=== PATIENT | male | born 1945 | race Hispanic/Latino ===

== ENCOUNTER 2017-06-05 11:01 | Inpatient (IN) | payer MEDICARE ==
[~2017-06-05] VITALS: Ht 170.2 cm; Wt 78.0 kg
[~2017-06-05 11:01] MED LIST: ASPIR 8181 MG; BRIMONIDINE TAR10 ML OU; CARVEDILOL12.5 MG PO; COLCRYS0.6 MG PO; DORZOLAMIDE-TIM10 ML OU; FERROUS SULFAT325 MG; GABAPENTIN300 MG PO; GLIMEPIRIDE2 MG PO; MONTELUKAST SOD10 MG PO; NAMENDA10 MG PO; NORVASC10 MG PO; PLAVIX75 MG PO; PREDNISONE5 G1 PO; TOVIAZ4 MG; TRICOR48 MG PO; ZESTRIL20 MG PO; ZOCOR10 MG
--- NOTE | 2017-06-05 12:03 | Diagnostic Imaging Report ---
PROCEDURE:CHEST SINGLE (NOT PORTABLE) TECHNIQUE:Portable AP chest INDICATION:Fall COMPARISON:[facility], DX, CHEST SINGLE (PORTABLE), 03/02/2015, 11:40. FINDINGS: See conclusion. CONCLUSION: 1. Right midline with tip in the region of the axillary vein. 2. Chronic left pleural thickening with adjacent fibrosis/scar. Clear right lung. 3. Stable cardiomediastinal silhouette, with normal heart size and pulmonary vasculature. 4. Intact skeleton. Dictated by: Yrn Salvador M.D. on 06/05/2017 at 12:12 Electronically approved by: Yrn Salvador M.D. on 06/05/2017 at 12:12
--- NOTE | 2017-06-05 12:04 | Diagnostic Imaging Report ---
PROCEDURE:HIP RIGHT 2-3 VW (+/- PELVIS) TECHNIQUE:PA pelvis with AP and frog-leg lateral views right hip INDICATION:Fall COMPARISON:None. FINDINGS: See conclusion. CONCLUSION: 1. Displaced intertrochanteric fracture of the right femur. 2. Right femoral head in anatomic alignment. Regional skeleton otherwise intact. 3. Regional atherosclerosis. Dictated by: Yrn Salvador M.D. on 06/05/2017 at 12:13 Electronically approved by: Yrn Salvador M.D. on 06/05/2017 at 12:13
[2017-06-05 12:25] LABS: BASOPHILS % 0.4 % (0.0-1.0); EOSINOPHILS # (AUTO) 0.2 (0.0-0.4); EOSINOPHILS % 1.9 % (0.0-6.0); HEMATOCRIT 33.2 % (38.2-49.6); HEMOGLOBIN 10.5 g/dL (14.0-18.0); LYMPHOCYTES # (AUTO) 2.1 (1.0-3.2); LYMPHOCYTES % 24.4 % (18.0-39.1); MEAN CORPUSCULAR HEMOGLOBIN 27.6 pg (28-32); MEAN CORPUSCULAR HGB CONC 31.6 g/dL (31-35); MEAN CORPUSCULAR VOLUME 87.1 fL (81-99); MONOCYTES # (AUTO) 0.6 (0.2-0.8); MONOCYTES % 6.5 % (4.4-11.3); NEUTROPHILS # (AUTO) 5.6 (2.1-6.9); NEUTROPHILS % 66.3 % (38.7-80.0); PLATELET COUNT 291 x10e3/uL (140-360); RED BLOOD COUNT 3.81 x10e6/uL (4.3-5.7); RED CELL DISTRIBUTION WIDTH 15.9 % (11.7-14.4)
[2017-06-05 12:30] LABS: PROTHROMBIN TIME 13.7 seconds (11.9-14.5)
[2017-06-05 12:40] LABS: ALBUMIN 3.1 g/dL (3.5-5.0); ALBUMIN/GLOBULIN RATIO 0.6 (0.8-2.0); ANION GAP 14.4 mmol/L (8-16); CALCIUM 9.4 mg/dL (8.4-10.2); POTASSIUM 4.4 mmol/L (3.5-5.1)
[2017-06-05] MEDS: SODIUM CHLORIDE 0.9% 1000ML 1,000 ML IV SCH ×2 (13:15→23:10)
[2017-06-05] MEDS: ONDANSETRON HCL INJ 2 MG/ML VIAL IV PRN ×2 (14:07→16:51)
[2017-06-05] MEDS: HYDROMORPHONE 2MG/ML INJ IV PRN ×2 (14:08→16:52)
[2017-06-05] MEDS ORDERED: HEPARIN SO5000 UNIT/ SC (16:42)
[2017-06-05] MEDS ORDERED: LASIX40 MG PO (16:42)
[2017-06-05] MEDS ORDERED: AMIODARONE HCL200 MG PO (16:42)
[2017-06-05] MEDS ORDERED: ECOTRIN325 MG PO (16:42)
[2017-06-05] MEDS ORDERED: DUONEB NEB (16:42)
[2017-06-05] MEDS ORDERED: BUDESONIDE0.5 MG/2 M NEB (16:42)
[2017-06-05] MEDS ORDERED: FLORASTOR250 MG PO (16:42)
[2017-06-05] MEDS ORDERED: FAMOTIDINE20 MG PO (16:42)
[2017-06-05] MEDS ORDERED: EFFER-K 20 MEQ20 MEQ PO (17:07)
[2017-06-05] MEDS ORDERED: IMODIUM2 MG PO (17:07)
[2017-06-05] MEDS ORDERED: LOPRESSOR25 MG PO (17:07)
[2017-06-05] MEDS ORDERED: PRAVASTATIN SOD20 MG PO (17:07)
[2017-06-05] MEDS ORDERED: NOVOLOG100 UNIT/1 (17:07)
[2017-06-05] MEDS ORDERED: LANTUS 3ML100 UNITS/ SC (17:07)
[2017-06-05] MEDS ORDERED: MIRALAX17 GM PO (17:07)
[2017-06-05] MEDS ORDERED: ZOSYN 3.373.375 GM/5 IVP (17:18)
[2017-06-05 18:11] VITALS: BP 178/83
[2017-06-05 18:24] VITALS: BP 178/83
[2017-06-05] MEDS ORDERED: HYDRALAZINE HCL 20 MG/ML VIAL IV PRN (18:30)
[2017-06-05] MEDS ORDERED: DEXTROSE 50% SYRINGE 50 ML IV PRN (18:30)
[2017-06-05] MEDS: NIFEDIPINE CR 30 MG TAB PO SCH (18:45)
--- NOTE | 2017-06-05 19:55 | History and Physical ---
CHIEF COMPLAINT: Fall with right femur fracture. HISTORY OF PRESENT ILLNESS: This is a 71-year-old male with multiple comorbidities who is currently at a custodial facility working with physical therapy. He fell down on his right hip and found to have a right intertrochanteric femur fracture. The patient denies having chest pain, palpitations, lightheadedness or dizziness when this occurred. They report this as more of a mechanical fall. The patient had been severely debilitated requiring significant PT and OT, going to custodial facility. The patient was seen and evaluated at bedside on the medical floor, currently doing well with no other issues. Pain is well controlled. Orthopedics has been consulted. reports that he saw a irrigationist designer in the past and needs cardiac clearance prior to any procedure. REVIEW OF SYSTEMS: Pertinent positive: Mechanical fall with right hip femur fracture. Pertinent negative: Denies any chest pain, palpitations, nausea, vomiting, diarrhea, dysuria, hematuria, frequency, urgency, lightheadedness, dizziness, abdominal pain, headache, shortness of breath or any other complaints. The rest of the 14-poin review of systems have been reviewed with the patient and are negative. ALLERGIES: NO KNOWN DRUG ALLERGIES. HOME MEDICATIONS: Amiodarone 400 mg daily, amlodipine 10 mg daily, aspirin 81 mg daily, budesonide 1 mg nebulizer q.12 h., Coreg 6.25 mg p.o. b.i.d., Plavix 75 mg daily, colchicine 0.6 mg p.o. daily, Pepcid 20 mg daily, Tricor 54 mg daily, iron tablets 325 mg daily, Lasix 40 mg p.o. b.i.d., gabapentin 300 mg daily, 2 mg p.o. b.i.d. He takes Lantus 20 units subcu daily, lisinopril 20 mg daily, Namenda 10 mg daily, metoprolol 100 mg p.o. b.i.d., Singular 10 mg daily. MiraLax as needed. PAST MEDICAL HISTORY: Diabetes, hypertension, dementia, hyperlipidemia, chronically debilitated. PAST SURGICAL HISTORY: Unknown. FAMILY HISTORY: Hypertension, diabetes. SOCIAL HISTORY: No drugs, no alcohol, does not smoke. Currently at the custodial facility for rehabilitation. LABORATORY DATA: White count 8.4, hemoglobin 10.5, hematocrit 33 and platelets 291,000. Coagulation was normal. Chemistry: Sodium 143, potassium 4.4, chloride 105, bicarb 28. BUN is 21, creatinine 2. Glucose 91. Calcium ___.4. LFTs were normal. Albumin 3.1. Microbiology: None. IMAGING: Hip x-ray shows right intertrochanteric femur fracture. Chest x-ray just chronic left pleural thickening right midline tip in the region of the axillary vein. Otherwise, no acute findings. PHYSICAL EXAMINATION VITAL SIGNS: Temperature afebrile, pulse 77, respiratory rate 16. His last blood pressure was elevated at 185/85, pulse oximetry 94% on room air. GENERAL: In no acute distress, alert and oriented x3, cooperative on examination. HEENT: Head is normocephalic, atraumatic. Eyes: Pupils equal, round and reactive to light bilaterally. Extraocular movements intact bilaterally. Throat with no evidence of any erythema or exudates in the posterior pharynx. Has poor dentition. NECK: Supple with good range of motion. PULMONARY: Clear to auscultation bilaterally with no wheezing, no rales, no rhonchi. No crackles appreciated. CARDIOVASCULAR: Positive S1 and S2, no murmurs, rubs or gallops appreciated. ABDOMEN: Soft, nondistended, nontender on palpation. Bowel sounds were present. MUSCULOSKELETAL: Strength 5/5 throughout, no evidence of musculoskeletal deficit on exam. SKIN: Intact. Warm to touch. Good capillary refill. EXTREMITIES: No edema. Good range of motion throughout. PSYCHIATRIC: Normal affect and mood. ASSESSMENT AND PLAN 1. Right intertrochanteric femur fracture -- pain control, orthopedics consulted. Needs cardiac clearance, according to the . Cardiology consulted, EKG and 2D echo. 2. Chronic kidney disease stage 3 -- monitor closely. 3. Hypertension -- blood pressure elevated. Add p.r.n. hydralazine. Add nifedipine XL 60 mg daily. 4. Type 2 diabetes, insulin sliding scale. Accu-Cheks. 5. Prophylaxis: Hold SCDs, hold anticoagulation due to surgery. 6. Fluid, electrolytes, nutrients: Low-dose IV fluids. DISPOSITION: Inpatient, orthopedics and cardiology consulted. Will likely need PT and OT after and will need custodial facility placement. Job#: [id number]
[2017-06-05 20:00] VITALS: BP 180/85
[2017-06-05] MEDS ORDERED: NON-FORMULARY MEDICATION (Pravastatin Sodium 20 MG) PO SCH (21:00)
[2017-06-05] MEDS: PRAVASTATIN 20 MG TAB PO SCH (21:24)
[2017-06-05] MEDS: METOPROLOL TARTRATE 25 MG TAB PO SCH (21:25)
[2017-06-06] VITALS (7 sets, daily range): BP systolic 114–143; BP diastolic 56–67
[2017-06-06] MEDS: SODIUM CHLORIDE 0.9% 1000ML 1,000 ML IV SCH ×2 (04:56→19:10)
--- NOTE | 2017-06-06 06:35 | Diagnostic Imaging Report ---
CHEST SINGLE (PORTABLE), 06/06/2017 6:00 AM Technique: CHEST SINGLE (PORTABLE) Comparison: 06/05/2017 Clinical history: PICC line confirmation Findings: Stable cardiomediastinal silhouette. Persistent low lung volumes with bibasilar vascular crowding/atelectasis. Unchanged focal left lateral pleural thickening or fluid. Impression: 1. Lines/Tubes: Right PICC terminates over the right axilla. 2. Stable chest. Signed by: Dr Rhiannon Franks MD on 06/06/2017 6:32 AM
--- NOTE | 2017-06-06 08:46 | Consultation ---
DATE OF CONSULTATION: June 06, 2017 CHIEF COMPLAINT: Right hip pain. HISTORY OF PRESENT ILLNESS: The patient is medically frail 71-year-old gentleman who is a custodial resident. He fell from a standing height a couple days ago. He has been unable to ambulate for 3 months. He was noted to have increased pain and deformity of his right lower extremity, and was ultimately brought into the hospital. He was diagnosed with a hip fracture and orthopedic consultation was requested. PAST MEDICAL HISTORY: Extensive medical history, including advanced dementia. He has been in the hospital for pneumonia for the past 3 months. He has not been ambulatory. Please see admission H and P for further details. PHYSICAL EXAMINATION GENERAL: He appears cachectic. EXTREMITIES: His upper extremities are contracted. He is in a right lower extremity Benjy wrap. He expresses signs of discomfort with any attempted passive range of motion. His knees are slightly contracture. Neurovascular exam is grossly normal. LABORATORY STUDIES: X-rays show a severe intertrochanteric fracture of the right hip. IMPRESSION: Right hip fracture. PLAN: The findings and options were discussed with the patient's daughter. The patient cannot provide any history and is not communicative. There would be little to no benefit of any type of aggressive surgical intervention to stabilize the fracture. He is currently nonambulatory, and is showing signs of end-stage medical comorbidities. I have recommended supportive comfort care. The patient's is in agreement. I will follow up as needed. Thank you for the consultation. Job#: [id number] STEPHANIE
[2017-06-06] MEDS ORDERED: METOPROLOL TARTRATE 25 MG TAB PO SCH (09:00)
[2017-06-06] MEDS: [UNRECOGNIZED DRUG - OTHER] PO SCH ×2 (09:00→16:27)
[2017-06-06] MEDS ORDERED: [UNRECOGNIZED DRUG - OTHER] PO SCH (09:00)
[2017-06-06] MEDS: ASPIRIN 325 MG TAB EC PO SCH (09:29)
[2017-06-06] MEDS: AMIODARONE HCL 200 MG TAB PO SCH (09:29)
[2017-06-06] MEDS: FUROSEMIDE 40 MG TAB PO SCH ×2 (09:29→17:01)
[2017-06-06] MEDS: METOPROLOL TARTRATE 25 MG TAB PO SCH ×2 (09:30→17:01)
[2017-06-06] MEDS: INSULIN DETEMIR 100 UNIT/ML PEN SQ SCH (09:30)
[2017-06-06] MEDS: NIFEDIPINE CR 30 MG TAB PO SCH (09:30)
[2017-06-06] MEDS: PRAVASTATIN 20 MG TAB PO SCH (20:42)
[2017-06-07] VITALS (8 sets, daily range): BP systolic 107–137; BP diastolic 53–85
[2017-06-07] MEDS: SODIUM CHLORIDE 0.9% 1000ML 1,000 ML IV SCH ×3 (00:26→21:19)
[2017-06-07] MEDS: ACETAMINOPHEN/CODEINE 300MG - 30MG TAB PO PRN ×3 (00:53→23:53)
[2017-06-07] MEDS: METOPROLOL TARTRATE 25 MG TAB PO SCH ×2 (08:43→16:48)
[2017-06-07] MEDS: NIFEDIPINE CR 30 MG TAB PO SCH (08:43)
[2017-06-07] MEDS: AMIODARONE HCL 200 MG TAB PO SCH (08:43)
[2017-06-07] MEDS: FUROSEMIDE 40 MG TAB PO SCH ×2 (08:43→16:52)
[2017-06-07] MEDS: [UNRECOGNIZED DRUG - OTHER] PO SCH ×2 (08:43→16:48)
[2017-06-07] MEDS: INSULIN DETEMIR 100 UNIT/ML PEN SQ SCH (08:43)
[2017-06-07] MEDS: ASPIRIN 325 MG TAB EC PO SCH (08:43)
[2017-06-07] MEDS: PRAVASTATIN 20 MG TAB PO SCH (20:14)
[2017-06-08] VITALS (8 sets, daily range): BP systolic 102–123; BP diastolic 45–59
[2017-06-08] MEDS: AMIODARONE HCL 200 MG TAB PO SCH (08:15)
[2017-06-08] MEDS: ASPIRIN 325 MG TAB EC PO SCH (08:15)
[2017-06-08] MEDS: FUROSEMIDE 40 MG TAB PO SCH ×2 (08:16→16:25)
[2017-06-08] MEDS: [UNRECOGNIZED DRUG - OTHER] PO SCH ×2 (08:16→16:25)
[2017-06-08] MEDS: METOPROLOL TARTRATE 25 MG TAB PO SCH ×2 (08:16→16:26)
[2017-06-08] MEDS: NIFEDIPINE CR 30 MG TAB PO SCH (08:17)
[2017-06-08] MEDS: INSULIN DETEMIR 100 UNIT/ML PEN SQ SCH (08:18)
[2017-06-08] MEDS: ACETAMINOPHEN/CODEINE 300MG - 30MG TAB PO PRN ×2 (08:32→13:58)
[2017-06-08] MEDS: SODIUM CHLORIDE 0.9% 1000ML 1,000 ML IV SCH (13:24)
[2017-06-08] MEDS: ENOXAPARIN 30 MG/0.3 ML SYR SC SCH (16:27)
[2017-06-08] MEDS: PRAVASTATIN 20 MG TAB PO SCH (21:22)
[2017-06-09] VITALS: BP 114/56
[2017-06-09 04:00] VITALS: BP 110/55
[2017-06-09] MEDS: ACETAMINOPHEN/CODEINE 300MG - 30MG TAB PO PRN ×4 (04:00→20:49)
[2017-06-09] MEDS: ACETAMINOPHEN 325 MG TAB PO PRN (04:30)
[2017-06-09 06:57] LABS: BASOPHILS % 0.3 % (0.0-1.0); EOSINOPHILS # (AUTO) 0.2 (0.0-0.4); EOSINOPHILS % 1.9 % (0.0-6.0); HEMATOCRIT 28.7 % (38.2-49.6); HEMOGLOBIN 9.2 g/dL (14.0-18.0); LYMPHOCYTES # (AUTO) 2.5 (1.0-3.2); LYMPHOCYTES % 20.1 % (18.0-39.1); MEAN CORPUSCULAR HEMOGLOBIN 27.7 pg (28-32); MEAN CORPUSCULAR HGB CONC 32.1 g/dL (31-35); MEAN CORPUSCULAR VOLUME 86.4 fL (81-99); MONOCYTES # (AUTO) 1.2 (0.2-0.8); MONOCYTES % 9.8 % (4.4-11.3); NEUTROPHILS # (AUTO) 8.2 (2.1-6.9); NEUTROPHILS % 67.4 % (38.7-80.0); PLATELET COUNT 322 x10e3/uL (140-360); RED BLOOD COUNT 3.32 x10e6/uL (4.3-5.7); RED CELL DISTRIBUTION WIDTH 15.8 % (11.7-14.4)
[2017-06-09 07:33] LABS: ANION GAP 18.3 mmol/L (8-16); CALCIUM 9.3 mg/dL (8.4-10.2); CREATININE, SERUM 1.68 mg/dL (0.72-1.25); POTASSIUM 4.3 mmol/L (3.5-5.1)
[2017-06-09 08:35] VITALS: BP 121/58
[2017-06-09] MEDS: [UNRECOGNIZED DRUG - OTHER] PO SCH ×2 (09:00→16:06)
[2017-06-09] MEDS: NIFEDIPINE CR 30 MG TAB PO SCH (09:33)
[2017-06-09] MEDS: FUROSEMIDE 40 MG TAB PO SCH ×2 (09:34→16:06)
[2017-06-09] MEDS: ASPIRIN 325 MG TAB EC PO SCH (09:34)
[2017-06-09] MEDS: METOPROLOL TARTRATE 25 MG TAB PO SCH ×2 (09:34→16:09)
[2017-06-09] MEDS: SODIUM CHLORIDE 0.9% 1000ML 1,000 ML IV SCH ×2 (09:34→21:13)
[2017-06-09] MEDS: AMIODARONE HCL 200 MG TAB PO SCH (09:34)
[2017-06-09] MEDS: INSULIN DETEMIR 100 UNIT/ML PEN SQ SCH (09:35)
[2017-06-09 12:06] LABS: BILIRUBIN,URINE NEGATIVE (NEGATIVE); KETONES,URINE NEGATIVE (NEGATIVE); LEUKOCYTE ESTERASE ,URINE NEGATIVE (NEGATIVE); NITRITE,URINE NEGATIVE (NEGATIVE); PROTEIN,URINE DIPSTICK NEGATIVE (NEGATIVE); URINE UROBILINOGEN 0.2 mg/dL (0.2 - 1)
[2017-06-09 12:21] LABS: CLARITY,URINE HAZY (CLEAR); COLOR,URINE YELLOW (YELLOW); EPITHELIAL CELLS,URINE RARE /LPF; RBC,URINE 0-5 /HPF (0-5)
[2017-06-09 12:22] LABS: AMORPHOUS SEDIMENT,URINE MODERATE (FEW)
[2017-06-09] MEDS: ENOXAPARIN 30 MG/0.3 ML SYR SC SCH (16:09)
[2017-06-09 17:00] VITALS: BP 129/60
[2017-06-09 20:00] VITALS: BP 125/59
[2017-06-09] MEDS: PRAVASTATIN 20 MG TAB PO SCH (20:49)
[2017-06-10] VITALS (8 sets, daily range): BP systolic 108–142; BP diastolic 53–85
[2017-06-10] MEDS: ACETAMINOPHEN/CODEINE 300MG - 30MG TAB PO PRN ×4 (04:26→22:51)
[2017-06-10 07:56] LABS: BASOPHILS # (AUTO) 0.1 (0.0-0.1); BASOPHILS % 0.4 % (0.0-1.0); EOSINOPHILS % 0.3 % (0.0-6.0); HEMOGLOBIN 9.2 g/dL (14.0-18.0); LYMPHOCYTES # (AUTO) 1.3 (1.0-3.2); LYMPHOCYTES % 11.2 % (18.0-39.1); MEAN CORPUSCULAR HEMOGLOBIN 27.4 pg (28-32); MEAN CORPUSCULAR HGB CONC 31.7 g/dL (31-35); MEAN CORPUSCULAR VOLUME 86.3 fL (81-99); MONOCYTES % 8.8 % (4.4-11.3); NEUTROPHILS # (AUTO) 9.2 (2.1-6.9); PLATELET COUNT 375 x10e3/uL (140-360); RED BLOOD COUNT 3.36 x10e6/uL (4.3-5.7); RED CELL DISTRIBUTION WIDTH 15.7 % (11.7-14.4)
[2017-06-10 08:05] LABS: ANION GAP 18.9 mmol/L (8-16); CALCIUM 8.9 mg/dL (8.4-10.2); CREATININE, SERUM 1.79 mg/dL (0.72-1.25); POTASSIUM 4.9 mmol/L (3.5-5.1)
[2017-06-10] MEDS: [UNRECOGNIZED DRUG - OTHER] PO SCH ×2 (09:00→16:51)
[2017-06-10] MEDS: FUROSEMIDE 40 MG TAB PO SCH ×2 (09:01→16:58)
[2017-06-10] MEDS: ASPIRIN 325 MG TAB EC PO SCH (09:01)
[2017-06-10] MEDS: METOPROLOL TARTRATE 25 MG TAB PO SCH ×2 (09:01→16:51)
[2017-06-10] MEDS: AMIODARONE HCL 200 MG TAB PO SCH (09:01)
[2017-06-10] MEDS: NIFEDIPINE CR 30 MG TAB PO SCH (09:01)
[2017-06-10] MEDS: INSULIN DETEMIR 100 UNIT/ML PEN SQ SCH (09:01)
[2017-06-10] MEDS: SODIUM CHLORIDE 0.9% 1000ML 1,000 ML IV SCH (10:00)
[2017-06-10] MEDS ORDERED: FUROSEMIDE INJ 10 MG/ML 4 ML VIAL IV ONE ×2 (11:15→20:00)
--- NOTE | 2017-06-10 11:28 | Diagnostic Imaging Report ---
PROCEDURE: A single AP view of the chest. COMPARISON: Chest x-ray 06/06/2017. CT chest 03/02/2015. INDICATIONS: SOB FINDINGS: Lines/tubes: Right PICC line with tip in the axilla. Lungs: The lungs are hypoinflated. Unchanged perihilar interstitial opacity. Slight increase in bibasilar atelectasis and/or consolidation. Spiculated consolidation in the left lateral midlung is unchanged compared to 2015. Pleura: Moderate left pleural effusion/pleural thickening centered at the left midlung is again seen. Heart and mediastinum: The heart and the mediastinum are unremarkable. Bones: No acute bony abnormality. IMPRESSION: Decreased lung volumes with perihilar atelectasis. Slight interval development of central pulmonary venous congestion/early interstitial edema. Dictated by: Dexter Fournier M.D. on 06/10/2017 at 11:36 Electronically approved by: Dexter Fournier M.D. on 06/10/2017 at 11:36
[2017-06-10] MEDS: ENOXAPARIN 30 MG/0.3 ML SYR SC SCH (16:58)
[2017-06-10] MEDS: PRAVASTATIN 20 MG TAB PO SCH (20:39)
[2017-06-11] VITALS (177 sets, daily range): BP systolic 65–162; BP diastolic 28–109
[2017-06-11] MEDS ORDERED: FUROSEMIDE INJ 10 MG/ML 4 ML VIAL ONE (04:27)
[2017-06-11] MEDS ORDERED: ENOXAPARIN INJ 80 MG/0.8 ML SYR SC SCH (04:30)
[2017-06-11] MEDS ORDERED: FUROSEMIDE INJ 10 MG/ML 4 ML VIAL IV ONE (04:30)
[2017-06-11] MEDS ORDERED: SODIUM CHLORIDE 0.9% 1000ML 1,000 ML ONE ×2 (04:59→07:17)
[2017-06-11] MEDS ORDERED: VANCOMYCIN 1GM/NS 250 ML 250 ML IV ONE (05:00)
[2017-06-11] MEDS ORDERED: PIPER-TAZ 3.375 GM 50 ML IV ONE (05:00)
[2017-06-11] MEDS ORDERED: PIPER-TAZ 3.375 GM 50 ML ONE (05:03)
[2017-06-11] MEDS ORDERED: VANCOMYCIN 1GM/NS 250 ML 250 ML ONE (05:03)
[2017-06-11 05:46] LABS: BASOPHILS % 0.3 % (0.0-1.0); EOSINOPHILS # (AUTO) 0.1 (0.0-0.4); EOSINOPHILS % 1.3 % (0.0-6.0); HEMATOCRIT 24.4 % (38.2-49.6); LYMPHOCYTES # (AUTO) 2.6 (1.0-3.2); LYMPHOCYTES % 28.5 % (18.0-39.1); MEAN CORPUSCULAR HEMOGLOBIN 27.8 pg (28-32); MEAN CORPUSCULAR HGB CONC 29.9 g/dL (31-35); MEAN CORPUSCULAR VOLUME 92.8 fL (81-99); MONOCYTES # (AUTO) 0.8 (0.2-0.8); MONOCYTES % 8.1 % (4.4-11.3); NEUTROPHILS # (AUTO) 5.4 (2.1-6.9); NEUTROPHILS % 58.9 % (38.7-80.0); PLATELET COUNT 495 x10e3/uL (140-360); RED BLOOD COUNT 2.63 x10e6/uL (4.3-5.7); RED CELL DISTRIBUTION WIDTH 15.7 % (11.7-14.4)
[2017-06-11 05:49] LABS: HEMOGLOBIN 7.3 g/dL (14.0-18.0)
[2017-06-11 05:54] LABS: BILIRUBIN,URINE NEGATIVE (NEGATIVE); CLARITY,URINE CLEAR (CLEAR); COLOR,URINE YELLOW (YELLOW); KETONES,URINE NEGATIVE (NEGATIVE); LEUKOCYTE ESTERASE ,URINE NEGATIVE (NEGATIVE); NITRITE,URINE NEGATIVE (NEGATIVE); PROTEIN,URINE DIPSTICK NEGATIVE (NEGATIVE); URINE UROBILINOGEN 0.2 mg/dL (0.2 - 1)
[2017-06-11 05:57] LABS: ANION GAP 27.2 mmol/L (8-16); CALCIUM 7.9 mg/dL (8.4-10.2); CREATININE, SERUM 2.56 mg/dL (0.72-1.25)
[2017-06-11 06:07] LABS: BACTERIA,URINE RARE /HPF; EPITHELIAL CELLS,URINE RARE /LPF; RBC,URINE 0-5 /HPF (0-5); TRANSITIONAL EPI CELLS,URINE RARE; WBC,URINE (MAN) 0-5 /HPF (0-5)
[2017-06-11] MEDS ORDERED: SODIUM CHLORIDE 0.9% 1000ML 1,000 ML IV SCH (06:15)
[2017-06-11 06:17] LABS: POTASSIUM 6.2 mmol/L (3.5-5.1)
[2017-06-11 06:18] LABS: ALBUMIN 1.7 g/dL (3.5-5.0); BILIRUBIN,DIRECT 0.3 mg/dL (0.0-5.0); MAGNESIUM 2.2 MG/DL (1.3-2.1); PHOSPHORUS 6.9 MG/DL (2.3-4.7)
[2017-06-11 06:20] LABS: INR 1.37; PROTHROMBIN TIME 17.6 seconds (11.9-14.5)
[2017-06-11] MEDS: PANTOPRAZOLE 40 MG 10ML VIAL IV SCH ×2 (06:20→09:39)
[2017-06-11 06:21] LABS: PARTIAL THROMBOPLASTIN TIME 38.1 seconds (23.8-35.5)
[2017-06-11] MEDS ORDERED: SODIUM CHLORIDE 0.9% 250ML 250 ML ONE ×2 (06:28→17:19)
--- NOTE | 2017-06-11 06:28 | Diagnostic Imaging Report ---
EXAMINATION: CHEST SINGLE (PORTABLE) INDICATION: Respiratory distress COMPARISON: 06/10/2017 FINDINGS: TUBES and LINES: Interval placement of endotracheal and nasogastric tubes. Right upper extremity PICC line is not visualized. LUNGS: Lungs are not well inflated. Improvement in left lung base airspace disease with air bronchogram . PLEURA: Small left pleural effusion. HEART AND MEDIASTINUM: The cardiomediastinal silhouette is unremarkable. BONES AND SOFT TISSUES: No acute osseous lesion. Soft tissues are unremarkable. UPPER ABDOMEN: No free air under the diaphragm. IMPRESSION: Mild improvement in airspace disease in keeping with left-sided pneumonia and a small left pleural effusion Signed by: Dr. Jonas Avery M.D. on 06/11/2017 6:25 AM
[2017-06-11] MEDS: LEVOFLOXACIN 500MG/D5W 100ML 100 ML IV SCH (06:29)
[2017-06-11] MEDS ORDERED: VASOPRESSIN 100 UNIT in DEXTROSE 5% 100ML 95 ML IV SCH ×2 (07:15→07:30)
[2017-06-11] MEDS: FENTANYL CITRATE INJ 2,000 MCG in SODIUM CHLORIDE 0.9% 250ML 210 ML IV PRN ×2 (07:21→22:51)
[2017-06-11] MEDS ORDERED: INSULIN REGULAR, HUMAN 100 UNIT/1 ML 3ML VIAL IV ONE (07:45)
[2017-06-11] MEDS ORDERED: DEXTROSE 50% SYRINGE 50 ML IV STA (07:45)
[2017-06-11] MEDS ORDERED: CALCIUM GLUCONATE 10% INJ 9.3 MEQ in SODIUM CHLORIDE 0.9% 100 ML 100 ML IV ONE (07:45)
[2017-06-11] MEDS ORDERED: DEXTROSE 5% 1000ML 1,000 ML IV SCH (07:45)
[2017-06-11] MEDS ORDERED: SODIUM BICARBONATE 8.4% 50 ML VIAL IV STA ×2 (07:45→07:57)
[2017-06-11] MEDS ORDERED: DIPHENHYDRAMINE HCL INJ 50 MG/ML VIAL IV ONE (08:15)
[2017-06-11] MEDS ORDERED: SODIUM CHLORIDE 0.9% 250ML 250 ML IV ONE (08:15)
[2017-06-11] MEDS ORDERED: DEXTROSE 50% SYRINGE 50 ML IV PRN (08:15)
[2017-06-11] MEDS ORDERED: NOREPINEPHRINE BITARTRATE/ NS 250 ML IV PRN (08:15)
[2017-06-11] MEDS ORDERED: FAMOTIDINE 20 MG/2 ML VIAL IV ONE (08:15)
[2017-06-11] MEDS ORDERED: DEXAMETHASONE SOD PHOS 10 MG/1 ML VIAL IV ONE (08:15)
[2017-06-11] MEDS: [UNRECOGNIZED DRUG - OTHER] PO SCH ×2 (08:27→14:47)
--- NOTE | 2017-06-11 08:53 | Consultation ---
DATE OF CONSULTATION: PULMONARY CRITICAL CARE CONSULTATION Admitted through the emergency room on June 05, 2017, with a history of fall and hip fracture in the [facility]. He had a intertrochanteric fracture. The patient has been unable to walk prior to the events. Was felt that there would be no benefit from surgical repair. Patient has a history of hypertension, history of stroke 4 years ago with right paracentesis, history of diabetes for many years, history of smoking for over 50 years, history of coronary artery disease. Worked as an electrician maintenance and other jobs. He was in respiratory distress early this morning and was felt to have aspirated, coffee-ground emesis. According to the family, he has had several pneumonias in the last month, as well as GI bleed, which was evaluated approximately 2 months ago without finding the source according to the family. He has a history of coronary disease and hypertension. MEDICATIONS: Have included amiodarone, Norvasc, aspirin, budesonide, Coreg, Plavix, colchicine, iron, Neurontin, Lantus insulin, lisinopril, Namenda, Lopressor. PHYSICAL EXAMINATION GENERAL: A tall white male intubated. Good smile. Respirations despite mechanical ventilator support. VITALS: Temperature 98.7, pulse 86, blood pressure 95/75, on vasopressin. HEENT: Temporal wasting. LUNGS: Rhonchi right greater than left. HEART: Regular rhythm. ABDOMEN: Nontender. EXTREMITIES: Not edematous. IMPRESSION 1. Aspiration pneumonia. 2. Shock. 3. Upper gastrointestinal bleed with coffee-ground emesis. PLAN: Transfuse, pressors, ventilator support. Family requests full measures at this time. Continue vasopressin and Levophed once line has been placed. Therapy of renal failure as per Dr. Chapin. Pneumonia with broad-spectrum antibiotics for hospital-acquired pneumonia. Discontinue antihypertensive agents at this time. Prognosis is poor. Will hold anticoagulation. Transfusion is pending. Grim prognosis discussed with the family. They request full measures at this time. Thank you for this kind referral. Job#: [id number] STEPHANIE
[2017-06-11] MEDS: AMIODARONE HCL 200 MG TAB PO SCH (09:00)
[2017-06-11 09:01] LABS: BAND NEUTROPHILS % (MANUAL) 8 %; BLAST CELLS % MANUAL 1; EOSINOPHILS % (MANUAL) 2 % (0-7); HYPOCHROMASIA MODERATE; LYMPHOCYTES % (MANUAL) 31 % (19-48); METAMYELOCYTES % (MANUAL) 2 % (0-0); MONOCYTES % (MANUAL) 7 % (3.4-9.0); NEUTROPHILS % (MANUAL) 49 % (40-74); NUCLEATED RED BLOOD CELLS 2; PLATELET ESTIMATE SLIGHTLY INCREASED; PLATELET MORPHOLOGY COMMENT NORMAL; RBC MORPHOLOGY COMMENT NORMAL
[2017-06-11 09:02] LABS: ANISOCYTOSIS SLIGHT
--- NOTE | 2017-06-11 09:52 | Diagnostic Imaging Report ---
PROCEDURE: CHEST SINGLE (PORTABLE) COMPARISON: 06/11/17 at 0529. INDICATIONS: CENTRAL LINE PLACEMENT FINDINGS: Endotracheal and enteric tube are unchanged in position. Interval placement of a right internal jugular high flow central venous catheter and low flow central venous catheter. The hemodialysis catheter tip projects over the low superior vena cava. The low flow central venous catheter tip projects over the superior cavoatrial junction. Right upper extremity midline PICC is also noted. Right hemithorax remains clear. No pneumothorax. Unchanged airspace opacity of the left lung with concentric pleural thickening or pleural effusion. Stable cardiomediastinal contour. No acute osseous abnormality. CONCLUSION: Interval placement of right internal jugular hemodialysis and low flow central venous catheters, positioned as above. No pneumothorax. Otherwise stable chest relative to 06/11/17 at 0529. Dictated by: Harley Singleton M.D. on 06/11/2017 at 10:00 Electronically approved by: Harley Singleton M.D. on 06/11/2017 at 10:00
[2017-06-11] MEDS: SODIUM BICARBONATE 8.4% 150 ML in DEXTROSE 5% 1000ML 1,000 ML IV SCH ×2 (10:05→20:02)
--- NOTE | 2017-06-11 10:32 | Diagnostic Imaging Report ---
PROCEDURE:NON-TUNNELLED CVC CATH PLACMNT, temporary hemodialysis catheter placement COMPARISON:Chest radiograph 06/11/2017. Preprocedure diagnosis: Acute kidney injury, hypotension Post procedure diagnosis: Acute kidney injury, hypotension Sat Math Tutor: Harley Singleton M.D. Specimens: None Implants/grafts: 1. 13 Ivorian, 15 cm triple-lumen high flow central venous catheter 2. 7 Ivorian, 16 cm triple-lumen low flow central venous catheter Blood products administered: None Sedation/anesthesia: None Additional medications: Lidocaine 1% for local anesthesia Condition at completion of procedure: Guarded Disposition: Remaining ICU COMPLICATIONS: No immediate BLOOD LOSS: Minimal PROCEDURE: Informed consent was obtained from the patient's next of kin and documented in the medical record after discussion of risks and benefits. Preliminary sonographic evaluation of the right cervical region confirmed patency of the internal jugular vein, evidence by compressibility. The right cervical region was then prepped and draped in the standard sterile fashion. 1% lidocaine was infiltrated into the skin and subcutaneous tissues for local anesthesia. Then, under continuous sonographic guidance, an 18 gauge singlewall needle was advanced into the right internal jugular vein. A permanent sonographic image was stored in the medical record. A 0.035 inch wire was advanced centrally to a depth of approximately 25 cm, with continuous cardiac rhythm monitoring. The needle was removed over the wire and the tract was dilated. Then, a 13 Ivorian, 15 cm triple-lumen high flow central venous catheter (Trialysis catheter) was advanced over the wire to full depth. The wire was removed. Each lumen showed adequate bidirectional flow and was then flushed with sterile saline. The catheter was secured to the skin with monofilament nylon suture. 1% lidocaine was infiltrated into a spot slightly superolateral in the right cervical region. Then under continuous sonographic guidance, an 18 gauge singlewall needle was used to access the right internal jugular vein slightly superior to the previous venotomy for the high flow central venous catheter placement. A permanent sonographic image was stored in the medical record. A 0.035 inch wire was then advanced centrally to a depth of approximately 20 cm, again with continuous cardiac rhythm monitoring. The needle was removed over the wire and the tract was dilated. Then, a 7 Ivorian, 16 cm triple-lumen central venous catheter was advanced over the wire to full depth. The wire was removed. Each lumen showed adequate bidirectional flow and was flushed with sterile saline. The catheter was secured to the skin with monofilament nylon suture. A sterile dressing was applied over both catheter exit sites. The patient tolerated the procedure well without immediate complication. Findings: Patent right internal jugular vein. CONCLUSION: 1. Successful placement of a 13 Ivorian, 15 cm temporary hemodialysis catheter via a right internal jugular approach under sonographic guidance. 2. Successful placement of a 7 Ivorian, 16 cm triple-lumen central venous catheter via a right internal jugular approach under sonographic guidance. 3. Post procedure chest radiograph was requested to confirm line positioning prior to use. Dictated by: Harley Singleton M.D. on 06/11/2017 at 10:40 Electronically approved by: Harley Singleton M.D. on 06/11/2017 at 10:40
--- NOTE | 2017-06-11 10:33 | Diagnostic Imaging Report ---
PROCEDURE:ULTRASOUND GUIDANCE FOR VASCULAR ACCESS COMPARISON:None. INDICATIONS:Trialysis Catheter FINDINGS:Right internal jugular vein is noted to be patent. Ultrasound guidance was utilized for access for central line placement. CONCLUSION:Patent right internal jugular vein. Successful ultrasound guidance for central line placement. Dictated by: Harley Singleton M.D. on 06/11/2017 at 10:41 Electronically approved by: Harley Singleton M.D. on 06/11/2017 at 10:41
--- NOTE | 2017-06-11 10:33 | Diagnostic Imaging Report ---
PROCEDURE:ULTRASOUND GUIDANCE FOR VASCULAR ACCESS COMPARISON:None. INDICATIONS:Central Line Placement FINDINGS:Right internal jugular vein is noted to be patent. Ultrasound guidance was utilized for access for central line placement. CONCLUSION:Patent right internal jugular vein. Successful ultrasound guidance for central line placement. Dictated by: Harley Singleton M.D. on 06/11/2017 at 10:41 Electronically approved by: Harley Singelton M.D. on 06/11/2017 at 10:41
--- NOTE | 2017-06-11 10:34 | Diagnostic Imaging Report ---
PROCEDURE:NON-TUNNELLED CVC CATH PLACMNT COMPARISON:None. INDICATIONS: Central Line Placement PROCEDURE: See conclusion CONCLUSION: Refer to "NON-TUNNELED CVC CATHETER PLACEMENT" from the same date and time for full dictated report. Dictated by: Harley Singleton M.D. on 06/11/2017 at 10:42 Electronically approved by: Harely Singleton M.D. on 06/11/2017 at 10:42
[2017-06-11] MEDS: NOREPINEPHRINE BITARTRATE/ NS 250 ML IV SCH ×2 (10:57→23:28)
[2017-06-11] MEDS: INSULIN DETEMIR 100 UNIT/ML PEN SQ SCH (11:03)
[2017-06-11 11:12] LABS: CREATINE KINASE MB 2.8 ng/mL (0.00-5.00); TROPONIN I 0.04 ng/mL (0-0.300)
[2017-06-11] MEDS ORDERED: INSULIN LISPRO 100 UNIT/1 ML 3ML VIAL SQ SCH (11:30)
[2017-06-11 11:45] LABS: ALBUMIN 1.5 g/dL (3.5-5.0); ALBUMIN/GLOBULIN RATIO 0.4 (0.8-2.0); ANION GAP 22.8 mmol/L (8-16); CALCIUM 7.8 mg/dL (8.4-10.2); CREATININE, SERUM 2.52 mg/dL (0.72-1.25); POTASSIUM 4.8 mmol/L (3.5-5.1)
[2017-06-11] MEDS ORDERED: SODIUM CHLORIDE 0.9% 500ML 500 ML ONE (12:02)
[2017-06-11] MEDS ORDERED: DIPHENHYDRAMINE HCL INJ 50 MG/ML VIAL IV NR (12:30)
[2017-06-11] MEDS ORDERED: FAMOTIDINE 20 MG/2 ML VIAL IV NR (12:30)
[2017-06-11] MEDS ORDERED: DEXAMETHASONE SOD PHOS 10 MG/1 ML VIAL IV NR (12:30)
[2017-06-11] MEDS ORDERED: SODIUM CHLORIDE 0.9% 1000ML 2,000 ML ONE (12:38)
[2017-06-11] MEDS ORDERED: HEPARIN SOD (PORCINE) 1000 UNIT/ML SDV IV PRN (13:00)
[2017-06-11] MEDS ORDERED: SODIUM CHLORIDE 0.9% 1000ML 1,000 ML IV PRN (13:00)
[2017-06-11] MEDS ORDERED: SODIUM BICARBONATE 8.4% INJ 50 ML SYR IV STA (13:07)
[2017-06-11] MEDS ORDERED: MANNITOL 25% 12.5GM/50 ML VIAL IV PRN (13:15)
[2017-06-11] MEDS ORDERED: ALBUMIN HUMAN 50 ML IV PRN (13:15)
[2017-06-11] MEDS ORDERED: PHENYLEPHRINE 10MG/ML VIAL 40 MG in DEXTROSE 5% 250ML 250 ML IV PRN ×4 (13:30)
[2017-06-11] MEDS: PANTOPRAZOLE INJ 40 MG in SODIUM CHLORIDE 0.9% 50ML 50 ML IV SCH ×3 (13:34→20:20)
[2017-06-11] MEDS: PIPER-TAZ 3.375 GM 50 ML IV SCH ×2 (14:08→22:45)
[2017-06-11 14:48] LABS: ABG HCO3 24 mmol/L (23-28); ABG PCO2 31 mmHg (41-51); ABG PO2 242 mmHg (80-105)
[2017-06-11] MEDS ORDERED: ACETAMINOPHEN 1000 MG/100 ML IV PRN (15:15)
[2017-06-11] MEDS ORDERED: VANCOMYCIN 1GM/NS 250 ML 250 ML IV SCH ×2 (17:00→20:00)
[2017-06-11 17:13] LABS: ABG HCO3 25 mmol/L (23-28); ABG PCO2 37 mmHg (41-51); ABG PH 7.42 (7.31-7.41); ABG PO2 235 mmHg (80-105)
[2017-06-11] MEDS: INSULIN LISPRO 100 UNIT/1 ML 3ML VIAL SQ SCH (17:20)
[2017-06-11] MEDS ORDERED: SODIUM CHLORIDE 0.9% 1000 ML BAG ONE (18:58)
[2017-06-11] MEDS ORDERED: SODIUM BICARBONATE 8.4% INJ 50 ML SYR ONE (18:58)
[2017-06-11] MEDS ORDERED: ETOMIDATE 2 MG/ML 10 ML INJ IV ONE (18:59)
[2017-06-11] MEDS ORDERED: SODIUM CHLORIDE 0.9% IV PRN (20:00)
[2017-06-11] MEDS ORDERED: PHENYLEPHRINE IV PRN (20:00)
[2017-06-11] MEDS: PRAVASTATIN 20 MG TAB PO SCH (20:02)
[2017-06-11 22:38] LABS: BASOPHILS % 0.4 % (0.0-1.0); HEMATOCRIT 23.7 % (38.2-49.6); LYMPHOCYTES # (AUTO) 0.5 (1.0-3.2); LYMPHOCYTES % 4.9 % (18.0-39.1); MEAN CORPUSCULAR HEMOGLOBIN 28.2 pg (28-32); MEAN CORPUSCULAR HGB CONC 33.3 g/dL (31-35); MEAN CORPUSCULAR VOLUME 84.6 fL (81-99); MONOCYTES # (AUTO) 0.4 (0.2-0.8); MONOCYTES % 3.4 % (4.4-11.3); NEUTROPHILS # (AUTO) 8.9 (2.1-6.9); NEUTROPHILS % 85.3 % (38.7-80.0); RED CELL DISTRIBUTION WIDTH 14.5 % (11.7-14.4)
[2017-06-11 22:42] LABS: HEMOGLOBIN 7.9 g/dL (14.0-18.0)
[2017-06-11 22:43] LABS: PLATELET COUNT 64 x10e3/uL (140-360)
[2017-06-11 22:58] LABS: ALBUMIN 1.4 g/dL (3.5-5.0); ALBUMIN/GLOBULIN RATIO 0.5 (0.8-2.0); CALCIUM 7.1 mg/dL (8.4-10.2); CREATININE, SERUM 1.59 mg/dL (0.72-1.25)
[2017-06-12] VITALS (84 sets, daily range): BP systolic 88–133; BP diastolic 36–102
[2017-06-12] MEDS ORDERED: SODIUM CHLORIDE 0.9% 250ML 250 ML IV ONE ×2 (00:30→09:00)
[2017-06-12] MEDS: SODIUM CHLORIDE 0.9% 1000ML 1,000 ML IV SCH ×3 (01:24→20:38)
[2017-06-12] MEDS: INSULIN LISPRO 100 UNIT/1 ML 3ML VIAL SQ SCH ×4 (01:25→17:45)
[2017-06-12] MEDS: PANTOPRAZOLE INJ 40 MG in SODIUM CHLORIDE 0.9% 50ML 50 ML IV SCH ×5 (02:25→20:52)
[2017-06-12] MEDS: PIPER-TAZ 3.375 GM 50 ML IV SCH (05:52)
[2017-06-12] MEDS: LEVOFLOXACIN 500MG/D5W 100ML 100 ML IV SCH (05:52)
[2017-06-12] MEDS: NOREPINEPHRINE BITARTRATE/ NS 250 ML IV SCH ×3 (05:53→18:31)
[2017-06-12] MEDS: FENTANYL CITRATE INJ 2,000 MCG in SODIUM CHLORIDE 0.9% 250ML 210 ML IV PRN ×2 (05:53→13:11)
[2017-06-12 06:02] LABS: BASOPHILS # (AUTO) 0.1 (0.0-0.1); BASOPHILS % 0.5 % (0.0-1.0); LYMPHOCYTES # (AUTO) 0.8 (1.0-3.2); LYMPHOCYTES % 4.5 % (18.0-39.1); MEAN CORPUSCULAR HEMOGLOBIN 28.8 pg (28-32); MEAN CORPUSCULAR HGB CONC 34.6 g/dL (31-35); MEAN CORPUSCULAR VOLUME 83.5 fL (81-99); MONOCYTES # (AUTO) 0.7 (0.2-0.8); MONOCYTES % 4.3 % (4.4-11.3); NEUTROPHILS # (AUTO) 14.3 (2.1-6.9); NEUTROPHILS % 86.4 % (38.7-80.0); PLATELET COUNT 85 x10e3/uL (140-360); RED CELL DISTRIBUTION WIDTH 15.2 % (11.7-14.4)
[2017-06-12 06:08] LABS: HEMATOCRIT 21.7 % (38.2-49.6)
[2017-06-12 06:09] LABS: HEMOGLOBIN 7.5 g/dL (14.0-18.0)
[2017-06-12 06:24] LABS: ALBUMIN 1.4 g/dL (3.5-5.0); ALBUMIN/GLOBULIN RATIO 0.4 (0.8-2.0); ANION GAP 13.9 mmol/L (8-16); CALCIUM 7.1 mg/dL (8.4-10.2); CREATININE, SERUM 2.1 mg/dL (0.72-1.25); POTASSIUM 3.9 mmol/L (3.5-5.1)
--- NOTE | 2017-06-12 07:06 | Diagnostic Imaging Report ---
EXAMINATION: CHEST SINGLE (PORTABLE) INDICATION: Shortness of breath COMPARISON: 06/10/2017 FINDINGS: TUBES and LINES: Endotracheal and nasogastric tubes are stable. Interval placement of right IJ central line catheter with tip overlying the right atrium LUNGS: Lungs are not well inflated. Stable left lung base airspace disease with air bronchogram . PLEURA: Stable moderate left pleural effusion. HEART AND MEDIASTINUM: The cardiomediastinal silhouette is unremarkable. BONES AND SOFT TISSUES: No acute osseous lesion. Soft tissues are unremarkable. UPPER ABDOMEN: No free air under the diaphragm. IMPRESSION: Stable airspace disease in keeping with left-sided pneumonia and a small left pleural effusion Signed by: Dr. Jonas Avery M.D. on 06/12/2017 7:03 AM
[2017-06-12 08:53] LABS: PROMYELOCYTES % (MANUAL) 2 % (0-0)
[2017-06-12 08:57] LABS: BAND NEUTROPHILS % (MANUAL) 31 %; LYMPHOCYTES % (MANUAL) 7 % (19-48); METAMYELOCYTES % (MANUAL) 8 % (0-0); MONOCYTES % (MANUAL) 4 % (3.4-9.0); NEUTROPHILS % (MANUAL) 47 % (40-74); NUCLEATED RED BLOOD CELLS 8; PLATELET ESTIMATE SLIGHTLY DECREASED
[2017-06-12 08:58] LABS: MICROCYTOSIS SLIGHT; RBC MORPHOLOGY COMMENT NORMAL
[2017-06-12] MEDS: AMIODARONE HCL 200 MG TAB PO SCH (08:58)
[2017-06-12] MEDS: [UNRECOGNIZED DRUG - OTHER] PO SCH ×2 (08:58→17:00)
[2017-06-12 08:59] LABS: ANISOCYTOSIS SLIG; PLATELET MORPHOLOGY COMMENT FEW LARGE; POIKILOCYTOSIS SLIGHT
[2017-06-12] MEDS: INSULIN DETEMIR 100 UNIT/ML PEN SQ SCH (08:59)
[2017-06-12] MEDS ORDERED: DIPHENHYDRAMINE HCL INJ 50 MG/ML VIAL IV ONE (09:00)
[2017-06-12 10:50] LABS: ABG HCO3 26 mmol/L (23-28); ABG PCO2 42 mmHg (41-51); ABG PH 7.39 (7.31-7.41); ABG PO2 191 mmHg (80-105)
[2017-06-12] MEDS ORDERED: MEROPENEM 500MG 500 MG in SODIUM CHLORIDE 0.9% 50ML 50 ML IV SCH (11:30)
[2017-06-12] MEDS: MEROPENEM 500MG 500 MG in WATER STERILE 10ML VIAL 10 ML IV SCH (11:43)
[2017-06-12] MEDS ORDERED: EPINEPHRINE HCL INJ 1 MG/ML AMP ONE (11:49)
[2017-06-12] MEDS ORDERED: DIPHENHYDRAMINE HCL INJ 1 ML ONE (14:06)
[2017-06-12] MEDS ORDERED: SODIUM CHLORIDE 0.9% 250ML 250 ML ONE (14:07)
--- NOTE | 2017-06-12 14:25 | Diagnostic Imaging Report ---
PROCEDURE:X-RAY ABDOMEN - KUB COMPARISON:None. INDICATIONS:NASOGASTRIC TUBE PLACEMENT FINDINGS: Portable image obtained at 1237 hours. Enteric tube terminates in the proximal stomach. Small bowel loops are dilated with air to a diameter of 3.2 cm. The cecum/right colon is dilated with air to a diameter of at least 6.8 cm. There is no evidence of pneumatosis or free air on this image. Small left pleural effusion/pleural thickening is stable. Bones/soft tissues: Unremarkable. CONCLUSION: Enteric tube as described above. Gaseous dilatation of the small bowel and large bowel suggestive of severe ileus or low bowel obstruction. Dictated by: Kobe Puri M.D. on 06/12/2017 at 14:33 Electronically approved by: Kobe Puri M.D. on 06/12/2017 at 14:33
--- NOTE | 2017-06-12 15:12 | Consultation ---
DATE OF CONSULTATION: June 11, 2017 REASON FOR CONSULTATION: Coffee-ground emesis through the NG. HISTORY OF PRESENTING ILLNESS: Patient is currently intubated on mechanical ventilator. I cannot derive any history from the patient. Most of my information is derived from the medical chart as well as personal interactions with the nurse. A 71-year-old male with a host of comorbidities, advanced dementia, [facility] resident, who initially got admitted secondary to fall, found to have a right hip fracture. Patient has been seen and evaluated by orthopedic service. Due to host of comorbidities, nonambulatory status, it was recommended to not perform any surgery for right intertrochanteric fracture. It was recommended that he will not benefit from surgical intervention. Patient developed some acute respiratory distress while he was on the floor. He got intubated and put on mechanical ventilator for respiratory failure. He is currently being treated with broad spectrum intravenous antibiotic presumably for underlying sepsis and pneumonia. GI is being consulted today because his NG aspirate was noted quite darkish brown, like coffee color. Hemoglobin which was 9.2 yesterday, dropped down to 7.3 today. He has already been started on PPI infusion. GI is being consulted for further evaluation and recommendation regarding upper GI bleeding. No melena. REVIEW OF SYSTEMS: Unobtainable. PAST MEDICAL HISTORY: Diabetes, hypertension, dementia, hyperlipidemia, chronically debilitated, bedbound, nonambulatory. PAST SURGICAL HISTORY: Unknown. FAMILY HISTORY: Diabetes, hypertension runs in the family. SOCIAL HISTORY: detention resident. No smoking, alcohol or any illicit drug use. ALLERGIES: NO KNOWN DRUG ALLERGIES. MEDICATIONS: Reviewed, as per AUG. PHYSICAL EXAMINATION VITAL SIGNS: Temperature 100.4, pulse ranging from 81 to 80, respirations 20, blood pressure 150/63 to 161/63, oxygen saturation 100% with the current ventilator setting. GENERAL: Intubated, sedated, on respiratory support. HEENT: Moist mucous membrane. Anicteric sclerae. OG tube in place. CVS: S1, S2. Irregularly irregular. 2/6 flow murmur at the apex. LUNGS: Bilaterally grossly clear with decreased breath sounds at both bases. ABDOMEN: Soft, nondistended, nontender. No palpable mass or hernia. Positive bowel sound. EXTREMITIES: Warm. No leg edema. LABS: WBC 9.24, hemoglobin 7.3, hematocrit 24.4, platelet count of 495,000. Sodium 143, potassium 4.8, chloride 113, bicarb 12, BUN 77, creatinine 2.52. It was 1.79 yesterday. BUN was 45, it has gone up to 77 yesterday. Liver test showed total bilirubin 0.6, direct bilirubin 0.3, AST 53, ALT 34, alkaline phosphatase 58. Chest x-ray showed interval placement of right internal jugular hemodialysis and low flow central venous catheter positioned. No pneumothorax. IMPRESSION: Coffee-ground drainage through the nasogastric tube without any melena. PLAN: I do not think patient is having any active GI bleeding at this time. The NG drainage currently is dark brown, more towards bilious side. Patient has already been given blood transfusion. He is definitely at the risk of GI bleeding secondary to stress gastritis. He has already been started on PPI infusion. We will continue to monitor him clinically, trend hemoglobin. If NG aspirate continues to remain darker and does not turn completely bilious and hemoglobin is dropping despite blood transfusion, in that situation, we will do upper endoscopy. He is maintaining good hemodynamics. Absence of melena further ensures me that probably he has had acute stress gastritis which can be treated well with PPI infusion. I thank Dr. Chapin for allowing me to participate in the care of this patient. Job#: [id number]
[2017-06-12] MEDS ORDERED: LIDOCAINE HCL 2% LOCAL INJ 5 ML SDV VIAL INJ ONE (18:54)
[2017-06-12] MEDS ORDERED: PROPOFOL IV EMULSION 10 MG/ML 20 ML VIAL ONE (18:54)
[2017-06-12] MEDS ORDERED: PHENYLEPHRINE HCL 1% 10 MG/ML VIAL ONE (18:54)
[2017-06-12] MEDS ORDERED: KETAMINE HCL INJ 50 MG/ML 10 ML VIAL ONE (19:18)
[2017-06-12] MEDS: PRAVASTATIN 20 MG TAB PO SCH (19:47)
[2017-06-13] VITALS (77 sets, daily range): BP systolic 75–168; BP diastolic 37–98
[2017-06-13] MEDS: PANTOPRAZOLE INJ 40 MG in SODIUM CHLORIDE 0.9% 50ML 50 ML IV SCH ×5 (04:23→23:30)
[2017-06-13] MEDS: LEVOFLOXACIN 500MG/D5W 100ML 100 ML IV SCH (04:36)
[2017-06-13] MEDS: INSULIN LISPRO 100 UNIT/1 ML 3ML VIAL SQ SCH ×4 (06:00→18:00)
[2017-06-13 06:21] LABS: BASOPHILS # (AUTO) 0.2 (0.0-0.1); BASOPHILS % 0.9 % (0.0-1.0); HEMOGLOBIN 9.6 g/dL (14.0-18.0); LYMPHOCYTES # (AUTO) 0.7 (1.0-3.2); LYMPHOCYTES % 4.4 % (18.0-39.1); MEAN CORPUSCULAR HGB CONC 34.3 g/dL (31-35); MEAN CORPUSCULAR VOLUME 84.6 fL (81-99); MONOCYTES # (AUTO) 0.8 (0.2-0.8); MONOCYTES % 4.6 % (4.4-11.3); NEUTROPHILS # (AUTO) 14.3 (2.1-6.9); NEUTROPHILS % 88.4 % (38.7-80.0); PLATELET COUNT 57 x10e3/uL (140-360); RED BLOOD COUNT 3.31 x10e6/uL (4.3-5.7); RED CELL DISTRIBUTION WIDTH 15.1 % (11.7-14.4)
[2017-06-13 06:32] LABS: INR 1.1; PROTHROMBIN TIME 14.8 seconds (11.9-14.5)
--- NOTE | 2017-06-13 06:49 | Diagnostic Imaging Report ---
EXAMINATION: CHEST SINGLE (PORTABLE) INDICATION: Aspiration COMPARISON: 06/12/2017 FINDINGS: TUBES and LINES: Endotracheal, nasogastric tube and right IJ central line catheters are stable. LUNGS: Lungs are not well inflated. There are bibasilar atelectasis. There is mild prominence of the central pulmonary vasculature, consistent with pulmonary venous congestion. Interstitial edema is also present. Persistent scarring in the left lung base. PLEURA: Small left pleural effusion. HEART AND MEDIASTINUM: The cardiomediastinal silhouette is unremarkable. BONES AND SOFT TISSUES: No acute osseous lesion. Soft tissues are unremarkable. UPPER ABDOMEN: No free air under the diaphragm. IMPRESSION: Interval increase in interstitial edema and vascular congestion. Otherwise, stable examination Signed by: Dr. Jonas Avery M.D. on 06/13/2017 6:46 AM
[2017-06-13] MEDS: SODIUM CHLORIDE 0.9% 1000ML 1,000 ML IV SCH ×2 (06:53→23:16)
[2017-06-13 08:39] LABS: ANION GAP 13.8 mmol/L (8-16); CALCIUM 7.3 mg/dL (8.4-10.2); CREATININE, SERUM 2.89 mg/dL (0.72-1.25); POTASSIUM 3.8 mmol/L (3.5-5.1)
[2017-06-13] MEDS: FENTANYL CITRATE INJ 2,000 MCG in SODIUM CHLORIDE 0.9% 250ML 210 ML IV PRN ×2 (09:00→18:14)
[2017-06-13] MEDS: INSULIN DETEMIR 100 UNIT/ML PEN SQ SCH (09:00)
[2017-06-13] MEDS: AMIODARONE HCL 200 MG TAB PO SCH (09:00)
[2017-06-13] MEDS: [UNRECOGNIZED DRUG - OTHER] PO SCH ×2 (09:00→17:00)
[2017-06-13] MEDS ORDERED: POTASSIUM CHLORIDE 20MEQ/100ML 200 ML IV ONE (09:45)
[2017-06-13] MEDS ORDERED: POTASSIUM CHLORIDE 100 ML IV ONE (10:00)
--- NOTE | 2017-06-13 10:41 | Diagnostic Imaging Report ---
EXAM: Abdomen, 1 View INDICATION: Pain. COMPARISON: None available. FINDINGS: LINES: Enteric feeding catheter is present with the tip projecting over the expected region of the distal stomach. Bowel: No air fluid levels.. No pneumoperitoneum.. Moderate amount of retained feces and air are noted in the colon and rectum. No calcifications project over the renal shadows, expected course of the ureters bilaterally, and bladder. Soft tissues: Atherosclerotic calcifications. Bones: No acute osseous abnormality. Degenerative changes of the lumbar spine and pelvis. Acute comminuted fracture of the proximal diaphysis of the right femur is present with involvement of the greater and lesser trochanters. Increased lucency is present in the proximal right humerus. No dislocation. Impression: Acute comminuted fracture of the proximal right femur. The increased lucency in the proximal right femur is concerning for possible pathologic fracture secondary to underlying bone lesion. Signed by: Dr. Alec More M.D. on 06/13/2017 10:38 AM
[2017-06-13 12:21] LABS: BAND NEUTROPHILS % (MANUAL) 4 %; EOSINOPHILS % (MANUAL) 1 % (0-7); LYMPHOCYTES % (MANUAL) 7 % (19-48); MONOCYTES % (MANUAL) 8 % (3.4-9.0); NEUTROPHILS % (MANUAL) 80 % (40-74); NUCLEATED RED BLOOD CELLS 1; RBC MORPHOLOGY COMMENT NORMAL
[2017-06-13 12:22] LABS: PLATELET ESTIMATE MARKEDLY DECREASED; PLATELET MORPHOLOGY COMMENT NORMAL; TOXIC GRANULATION SLIGHT
[2017-06-13 12:39] LABS: ABG HCO3 21 mmol/L (23-28); ABG PCO2 39 mmHg (41-51); ABG PH 7.34 (7.31-7.41); ABG PO2 94 mmHg (80-105)
[2017-06-13] MEDS: MIDAZOLAM HCL 2 MG/2 ML VIAL IV PRN ×2 (13:40→18:55)
[2017-06-13] MEDS: MEROPENEM 500MG 500 MG in WATER STERILE 10ML VIAL 10 ML IV SCH (14:30)
[2017-06-13] MEDS: FUROSEMIDE INJ 10 MG/ML 4 ML VIAL IV SCH ×2 (14:30→21:07)
[2017-06-13] MEDS: DORZOLAMIDE/TIMOLOL (OPTH SOL) 10 ML DRPETTE OP SCH (18:14)
[2017-06-13] MEDS: PRAVASTATIN 20 MG TAB PO SCH (21:00)
[2017-06-14] VITALS (92 sets, daily range): BP systolic 81–187; BP diastolic 30–104
[2017-06-14] MEDS: PANTOPRAZOLE INJ 40 MG in SODIUM CHLORIDE 0.9% 50ML 50 ML IV SCH ×4 (05:18→19:30)
[2017-06-14] MEDS: LEVOFLOXACIN 500MG/D5W 100ML 100 ML IV SCH (05:33)
[2017-06-14] MEDS: FUROSEMIDE INJ 10 MG/ML 4 ML VIAL IV SCH ×3 (05:33→18:13)
[2017-06-14 05:58] LABS: BASOPHILS % 0.3 % (0.0-1.0); HEMATOCRIT 27.6 % (38.2-49.6); HEMOGLOBIN 9.4 g/dL (14.0-18.0); LYMPHOCYTES # (AUTO) 0.7 (1.0-3.2); LYMPHOCYTES % 5.6 % (18.0-39.1); MEAN CORPUSCULAR HGB CONC 34.1 g/dL (31-35); MEAN CORPUSCULAR VOLUME 85.2 fL (81-99); MONOCYTES # (AUTO) 0.6 (0.2-0.8); MONOCYTES % 4.8 % (4.4-11.3); NEUTROPHILS # (AUTO) 10.9 (2.1-6.9); PLATELET COUNT 51 x10e3/uL (140-360); RED BLOOD COUNT 3.24 x10e6/uL (4.3-5.7); RED CELL DISTRIBUTION WIDTH 15.7 % (11.7-14.4)
[2017-06-14] MEDS: INSULIN LISPRO 100 UNIT/1 ML 3ML VIAL SQ SCH ×4 (06:00→18:00)
[2017-06-14] MEDS: NOREPINEPHRINE BITARTRATE/ NS 250 ML IV SCH (06:09)
[2017-06-14 06:18] LABS: ANION GAP 13.7 mmol/L (8-16); CALCIUM 7.4 mg/dL (8.4-10.2); CREATININE, SERUM 3.45 mg/dL (0.72-1.25); POTASSIUM 3.7 mmol/L (3.5-5.1)
[2017-06-14] MEDS: MIDAZOLAM HCL 2 MG/2 ML VIAL IV PRN ×2 (07:46→15:15)
[2017-06-14] MEDS: ALBUMIN HUMAN 12.5GM / 50ML IV PRN (07:57)
[2017-06-14] MEDS: [UNRECOGNIZED DRUG - OTHER] PO SCH ×2 (09:00→17:00)
[2017-06-14] MEDS: INSULIN DETEMIR 100 UNIT/ML PEN SQ SCH (09:00)
[2017-06-14] MEDS: AMIODARONE HCL 200 MG TAB PO SCH (09:00)
[2017-06-14] MEDS: DORZOLAMIDE/TIMOLOL (OPTH SOL) 10 ML DRPETTE OP SCH ×2 (09:00→17:27)
[2017-06-14 10:46] LABS: BAND NEUTROPHILS % (MANUAL) 17 %; LYMPHOCYTES % (MANUAL) 12 % (19-48); NEUTROPHILS % (MANUAL) 71 % (40-74)
[2017-06-14 10:47] LABS: PLATELET ESTIMATE MARKEDLY DECREASED; PLATELET MORPHOLOGY COMMENT NORMAL; RBC MORPHOLOGY COMMENT NORMAL
--- NOTE | 2017-06-14 11:02 | Diagnostic Imaging Report ---
EXAM: Abdomen, 1 View INDICATION: Pain. Evaluate NG tube placement. COMPARISON: KUB 06/13/2017 FINDINGS: LINES: NG tube is present with the tip projecting over the expected region of the gastric antrum. Bowel: No air fluid levels. No pneumoperitoneum.. Moderate amount of retained feces and air are noted in the colon and rectum. No calcifications project over the renal shadows, expected course of the ureters bilaterally, and bladder. Soft tissues: Atherosclerotic calcifications. Bones: No acute osseous abnormality. Degenerative changes of the lumbar spine and pelvis. Acute comminuted fracture of the proximal diaphysis of the right femur is present with involvement of the greater and lesser trochanters. Increased lucency is present in the proximal right humerus. No dislocation. Impression: 1. Acute comminuted fracture of the proximal right femur. The increased lucency in the proximal right femur is concerning for possible pathologic fracture secondary to underlying bone lesion. 2. Unchanged NG tube in the gastric antrum. Signed by: Dr. Dexter Fournier M.D. on 06/14/2017 10:59 AM
[2017-06-14] MEDS: MEROPENEM 500MG 500 MG in WATER STERILE 10ML VIAL 10 ML IV SCH (12:40)
[2017-06-14] MEDS ORDERED: DEXTROSE 10% 1,000 ML IV PRN (18:45)
[2017-06-14] MEDS: SODIUM CHLORIDE 0.9% 1000ML 1,000 ML IV SCH (19:16)
[2017-06-14] MEDS: CENTRAL TPN FORMULA 1 BAG IV SCH (20:00)
[2017-06-14] MEDS: PRAVASTATIN 20 MG TAB PO SCH (21:00)
--- NOTE | 2017-06-14 22:47 | Diagnostic Imaging Report ---
EXAMINATION: CHEST SINGLE (PORTABLE) INDICATION: Endotracheal tube and NG tube placement COMPARISON: 06/12/2017 and 06/13/2017 FINDINGS: TUBES and LINES: Endotracheal, nasogastric tube and right IJ central line catheters are stable. LUNGS: Lungs are not well inflated. There are bibasilar atelectasis. There is mild prominence of the central pulmonary vasculature, consistent with pulmonary venous congestion. Persistent scarring in the left lung base. PLEURA: Stable small left pleural effusion. HEART AND MEDIASTINUM: The cardiomediastinal silhouette is unremarkable. BONES AND SOFT TISSUES: No acute osseous lesion. Soft tissues are unremarkable. UPPER ABDOMEN: No free air under the diaphragm. IMPRESSION: 1. Interval improvement in interstitial edema and vascular congestion. 2. Otherwise, stable examination Signed by: Dr. Jonas Avery M.D. on 06/14/2017 10:43 PM
[2017-06-15] VITALS (100 sets, daily range): BP systolic 74–198; BP diastolic 26–92
[2017-06-15] MEDS: INSULIN LISPRO 100 UNIT/1 ML 3ML VIAL SQ SCH ×4 (03:47→18:55)
[2017-06-15] MEDS: PANTOPRAZOLE INJ 40 MG in SODIUM CHLORIDE 0.9% 50ML 50 ML IV SCH ×5 (03:54→20:30)
[2017-06-15] MEDS: LEVOFLOXACIN 500MG/D5W 100ML 100 ML IV SCH (04:30)
[2017-06-15] MEDS: NOREPINEPHRINE BITARTRATE/ NS 250 ML IV SCH (05:20)
[2017-06-15 05:46] LABS: BASOPHILS % 0.2 % (0.0-1.0); EOSINOPHILS % 0.1 % (0.0-6.0); HEMATOCRIT 25.8 % (38.2-49.6); HEMOGLOBIN 8.6 g/dL (14.0-18.0); LYMPHOCYTES # (AUTO) 0.6 (1.0-3.2); LYMPHOCYTES % 7.4 % (18.0-39.1); MEAN CORPUSCULAR HEMOGLOBIN 28.8 pg (28-32); MEAN CORPUSCULAR HGB CONC 33.3 g/dL (31-35); MEAN CORPUSCULAR VOLUME 86.3 fL (81-99); MONOCYTES # (AUTO) 0.5 (0.2-0.8); MONOCYTES % 6.5 % (4.4-11.3); NEUTROPHILS # (AUTO) 6.9 (2.1-6.9); RED BLOOD COUNT 2.99 x10e6/uL (4.3-5.7); RED CELL DISTRIBUTION WIDTH 15.9 % (11.7-14.4)
[2017-06-15] MEDS: FUROSEMIDE INJ 10 MG/ML 4 ML VIAL IV SCH ×2 (05:58)
--- NOTE | 2017-06-15 06:10 | Diagnostic Imaging Report ---
EXAMINATION: CHEST SINGLE (PORTABLE) INDICATION: Pneumonia. COMPARISON: 06/12/2017 and 06/13/2017 FINDINGS: TUBES and LINES: Endotracheal, nasogastric tube and right IJ central line catheters are stable. LUNGS: Lungs are not well inflated. There are bibasilar atelectasis. There is mild prominence of the central pulmonary vasculature, consistent with pulmonary venous congestion. Persistent scarring in the left lung base. PLEURA: Stable small left pleural effusion. HEART AND MEDIASTINUM: The cardiomediastinal silhouette is unremarkable. BONES AND SOFT TISSUES: No acute osseous lesion. Soft tissues are unremarkable. UPPER ABDOMEN: No free air under the diaphragm. IMPRESSION: 1. Interval improvement in interstitial edema and vascular congestion. 2. Otherwise, stable examination Signed by: Dr. Jonas Avery M.D. on 06/15/2017 6:07 AM
[2017-06-15 06:14] LABS: ANION GAP 13.8 mmol/L (8-16); CALCIUM 7.5 mg/dL (8.4-10.2); CREATININE, SERUM 3.66 mg/dL (0.72-1.25); POTASSIUM 3.8 mmol/L (3.5-5.1)
[2017-06-15 06:18] LABS: PLATELET COUNT 44 x10e3/uL (140-360)
[2017-06-15] MEDS: INSULIN DETEMIR 100 UNIT/ML PEN SQ SCH (08:34)
[2017-06-15] MEDS: [UNRECOGNIZED DRUG - OTHER] PO SCH ×2 (08:34→16:34)
[2017-06-15] MEDS: DORZOLAMIDE/TIMOLOL (OPTH SOL) 10 ML DRPETTE OP SCH ×2 (08:34→17:11)
[2017-06-15] MEDS: AMIODARONE HCL 200 MG TAB PO SCH (08:35)
[2017-06-15] MEDS: MEROPENEM 500MG 500 MG in WATER STERILE 10ML VIAL 10 ML IV SCH (11:43)
--- NOTE | 2017-06-15 12:14 | Diagnostic Imaging Report ---
EXAM: Abdomen 1 View INDICATION: \S\ileus \[id number] \S\0925 \S\Y COMPARISON: KUB dated 06/14/2017 FINDINGS: Nasogastric tube has been retracted with tip now overlying gastric fundus. Limited by body habitus. Nonobstructive bowel gas pattern. No signs of pneumoperitoneum. Degenerative changes of lower lumbar spine. Partially imaged right femoral fracture. Small left pleural effusion. IMPRESSION: 1. Nonobstructive bowel gas pattern. 2. Nasogastric tube in place with tip overlying gastric fundus. Signed by: Dr. Ambrocio Sky MD on 06/15/2017 12:11 PM
[2017-06-15] MEDS: SODIUM CHLORIDE 0.9% 1000ML 1,000 ML IV SCH (15:16)
[2017-06-15 18:20] LABS: ABG HCO3 20 mmol/L (23-28); ABG PCO2 34 mmHg (41-51); ABG PH 7.37 (7.31-7.41); ABG PO2 125 mmHg (80-105)
[2017-06-15] MEDS: CENTRAL TPN FORMULA 1 BAG IV SCH (20:00)
[2017-06-15] MEDS: PRAVASTATIN 20 MG TAB PO SCH (21:00)
[2017-06-16] VITALS (80 sets, daily range): BP systolic 78–190; BP diastolic 43–142
[2017-06-16] MEDS: PANTOPRAZOLE INJ 40 MG in SODIUM CHLORIDE 0.9% 50ML 50 ML IV SCH ×5 (01:30→21:20)
[2017-06-16 04:53] LABS: BASOPHILS % 0.4 % (0.0-1.0); EOSINOPHILS % 0.4 % (0.0-6.0); HEMATOCRIT 25.2 % (38.2-49.6); HEMOGLOBIN 8.5 g/dL (14.0-18.0); LYMPHOCYTES # (AUTO) 0.8 (1.0-3.2); LYMPHOCYTES % 8.2 % (18.0-39.1); MEAN CORPUSCULAR HEMOGLOBIN 29.1 pg (28-32); MEAN CORPUSCULAR HGB CONC 33.7 g/dL (31-35); MEAN CORPUSCULAR VOLUME 86.3 fL (81-99); MONOCYTES # (AUTO) 0.5 (0.2-0.8); MONOCYTES % 5.7 % (4.4-11.3); NEUTROPHILS # (AUTO) 7.3 (2.1-6.9); NEUTROPHILS % 78.8 % (38.7-80.0); RED BLOOD COUNT 2.92 x10e6/uL (4.3-5.7); RED CELL DISTRIBUTION WIDTH 16.1 % (11.7-14.4)
[2017-06-16 05:00] LABS: PLATELET COUNT 35 x10e3/uL (140-360)
[2017-06-16 05:07] LABS: ANION GAP 11.6 mmol/L (8-16); CALCIUM 7.6 mg/dL (8.4-10.2); CREATININE, SERUM 1.69 mg/dL (0.72-1.25); POTASSIUM 3.6 mmol/L (3.5-5.1)
[2017-06-16] MEDS: LEVOFLOXACIN 500MG/D5W 100ML 100 ML IV SCH (05:20)
[2017-06-16 05:43] LABS: INR 1.1; PROTHROMBIN TIME 14.8 seconds (11.9-14.5)
[2017-06-16 05:44] LABS: PARTIAL THROMBOPLASTIN TIME 37.3 seconds (23.8-35.5)
[2017-06-16 05:52] LABS: FERRITIN 872.94 ng/mL (21.81-274.66)
--- NOTE | 2017-06-16 05:57 | Consultation ---
DATE OF CONSULTATION: June 15, 2017 REQUESTING PHYSICIAN: Dr. Sanford Chapin. HEMATOLOGY/ONCOLOGY SERVICE REASON FOR CONSULTATION: Evaluation and management of patient with anemia and thrombocytopenia. HISTORY OF PRESENTING ILLNESS: Mr. Frederick is a 71-year-old gentleman with multiple medical problems including known diagnosis of diabetes mellitus, hypertension, dementia, hyperlipidemia who has been bed bound due to chronic debilitated state and nonambulatory, who was initially admitted secondary to a fall and found to have right hip fracture. Apparently, due to multiple comorbidities, it was decided to offer him conservative management rather than aggressive surgical approach. During the stay, he developed acute respiratory distress leading to pneumonia, respiratory failure, and subsequently he was intubated. He also had coffee-grounds drainage from the NG tube, subsequently seen and evaluated by GI. Hematology/oncology has been consulted due to anemia and thrombocytopenia. Presently, patient is lying intubated and on ventilator support. PAST MEDICAL HISTORY 1. Diabetes mellitus. 2. Hypertension. 3. Dementia. 4. Hyperlipidemia. 5. Chronic debilitation. 6. Bed bound. 7. Nonambulatory. PAST SURGICAL HISTORY: Unknown. FAMILY HISTORY: Positive for diabetes mellitus and hypertension. SOCIAL HISTORY: There is no reported history of smoking, alcohol use, or illicit drug use. He lives in half-way facility for rehabilitation. ALLERGIES: NO KNOWN DRUG ALLERGIES. CURRENT MEDICATIONS: Reviewed as per electronic medical record. REVIEW OF SYSTEMS: Unable to obtain due to patient's current medical condition. PHYSICAL EXAMINATION VITAL SIGNS: Reviewed as per electronic medical record. HEAD: Atraumatic, normocephalic. NECK: Supple. CVS: S1 and S2 audible. RESPIRATORY: Decreased bilateral air entry. ABDOMEN: Positive bowel sounds. EXTREMITIES: Positive edema. NEURO: Patient is alert but intubated. LABORATORY DATA: White blood cell count of 8.3, hemoglobin 8.6, hematocrit 25.8, and platelets 44,000. ASSESSMENT: Mr. Frederick is a 71-year-old gentleman with multiple medical problems admitted due to a fall and fracture of the right hip. He has been evaluated by orthopedic and recommended to have conservative management due to chronic debilitated conditions and multiple medical issues. During his stay, he developed respiratory distress leading to respiratory failure and intubation. He also developed gastrointestinal bleed, subsequently evaluated by gastroenterology. His present blood count revealed anemia and thrombocytopenia. PLAN: I have reviewed the record. Overall, it appeared that the cause of thrombocytopenia is probably consumption. At this point, I will get a DIC panel to rule out underlying coagulopathy. I will also get anemia panel. Due to the history of GI bleed, he may need IV iron infusion to bring his count up. Thank you for the consult. I will continue to be available. Please call with questions. Job#: [id number] CF
[2017-06-16] MEDS: INSULIN LISPRO 100 UNIT/1 ML 3ML VIAL SQ SCH ×4 (06:08→18:00)
[2017-06-16 06:11] LABS: FOLATE 16.4 ng/mL (7.0-15.4)
[2017-06-16] MEDS ORDERED: ACETAMINOPHEN 1000 MG/100 ML 100 ML IV ONE (06:19)
[2017-06-16] MEDS ORDERED: ACETAMINOPHEN 1000 MG/100 ML IV PRN (06:30)
[2017-06-16] MEDS: NOREPINEPHRINE BITARTRATE/ NS 250 ML IV SCH (06:41)
--- NOTE | 2017-06-16 07:33 | Diagnostic Imaging Report ---
Examination: Single AP view of the chest. COMPARISON: 06/15/2017 INDICATION: Intubated DISCUSSION: See impression IMPRESSION: 1. Endotracheal tube, nasogastric tube, right upper extremity midline PICC, right internal jugular hemodialysis catheter, and right internal jugular central venous catheter are unchanged in position. 2. When accounting for differences in technique, no appreciable interval change in pulmonary venous congestion. Worsening atelectasis or aspiration in the right lower lobe, with partial loss of the hemidiaphragmatic contour. 3. Left basal scarring with small pleural effusion, unchanged. Signed by: Dr. Harley Singleton M.D. on 06/16/2017 7:30 AM
[2017-06-16] MEDS: ALBUTEROL/IPRATROPIUM 3 ML NEB NEB PRN ×2 (07:48→18:55)
[2017-06-16] MEDS: ACETAMINOPHEN 325 MG TAB PO PRN (08:05)
[2017-06-16] MEDS: AMIODARONE HCL 200 MG TAB PO SCH (08:42)
[2017-06-16] MEDS: ALBUMIN HUMAN 12.5GM / 50ML IV PRN (08:45)
[2017-06-16] MEDS: [UNRECOGNIZED DRUG - OTHER] PO SCH ×2 (09:00→17:00)
[2017-06-16] MEDS: INSULIN DETEMIR 100 UNIT/ML PEN SQ SCH (09:00)
[2017-06-16] MEDS ORDERED: SODIUM CHLORIDE 0.9% 500ML 500 ML ONE (09:05)
[2017-06-16] MEDS: DORZOLAMIDE/TIMOLOL (OPTH SOL) 10 ML DRPETTE OP SCH ×2 (09:07→17:00)
[2017-06-16] MEDS: SODIUM CHLORIDE 0.9% 1000ML 1,000 ML IV SCH (09:26)
[2017-06-16] MEDS: FUROSEMIDE INJ 10 MG/ML 4 ML VIAL IV SCH ×2 (10:30→21:20)
[2017-06-16] MEDS: MEROPENEM 500MG 500 MG in WATER STERILE 10ML VIAL 10 ML IV SCH (11:30)
[2017-06-16 12:37] LABS: ABG HCO3 23 mmol/L (23-28); ABG PCO2 33 mmHg (41-51); ABG PH 7.44 (7.31-7.41); ABG PO2 160 mmHg (80-105)
[2017-06-16] MEDS: MIDAZOLAM HCL 2 MG/2 ML VIAL IV PRN (15:02)
[2017-06-16] MEDS ORDERED: DEXAMETHASONE SOD PHOS 10 MG/1 ML VIAL IV ONE (17:30)
[2017-06-16] MEDS: PRAVASTATIN 20 MG TAB PO SCH (20:39)
[2017-06-16] MEDS: CENTRAL TPN FORMULA 1 BAG IV SCH (21:00)
[2017-06-17] VITALS (63 sets, daily range): BP systolic 121–188; BP diastolic 61–115
[2017-06-17] MEDS: INSULIN LISPRO 100 UNIT/1 ML 3ML VIAL SQ SCH ×4 (01:00→18:00)
[2017-06-17] MEDS: PANTOPRAZOLE INJ 40 MG in SODIUM CHLORIDE 0.9% 50ML 50 ML IV SCH ×4 (03:03→17:56)
[2017-06-17] MEDS: LEVOFLOXACIN 500MG/D5W 100ML 100 ML IV SCH (04:25)
[2017-06-17 06:09] LABS: BASOPHILS % 0.3 % (0.0-1.0); HEMATOCRIT 25.3 % (38.2-49.6); HEMOGLOBIN 8.4 g/dL (14.0-18.0); LYMPHOCYTES # (AUTO) 0.7 (1.0-3.2); LYMPHOCYTES % 7.5 % (18.0-39.1); MEAN CORPUSCULAR HEMOGLOBIN 28.2 pg (28-32); MEAN CORPUSCULAR HGB CONC 33.2 g/dL (31-35); MEAN CORPUSCULAR VOLUME 84.9 fL (81-99); MONOCYTES # (AUTO) 0.3 (0.2-0.8); MONOCYTES % 3.2 % (4.4-11.3); NEUTROPHILS # (AUTO) 8.2 (2.1-6.9); NEUTROPHILS % 86.1 % (38.7-80.0); RED BLOOD COUNT 2.98 x10e6/uL (4.3-5.7); RED CELL DISTRIBUTION WIDTH 16.3 % (11.7-14.4)
[2017-06-17] MEDS: NOREPINEPHRINE BITARTRATE/ NS 250 ML IV SCH (06:15)
[2017-06-17 06:27] LABS: PLATELET COUNT 95 x10e3/uL (140-360)
[2017-06-17 06:31] LABS: ALBUMIN 1.7 g/dL (3.5-5.0); ALBUMIN/GLOBULIN RATIO 0.5 (0.8-2.0); CALCIUM 7.9 mg/dL (8.4-10.2); CREATININE, SERUM 2.2 mg/dL (0.72-1.25)
[2017-06-17] MEDS: ALBUTEROL/IPRATROPIUM 3 ML NEB NEB PRN (07:20)
[2017-06-17 07:57] LABS: LYMPHOCYTES % (MANUAL) 9 % (19-48); MONOCYTES % (MANUAL) 5 % (3.4-9.0); NEUTROPHILS % (MANUAL) 86 % (40-74)
[2017-06-17 07:58] LABS: ANISOCYTOSIS SLIGHT; HYPOCHROMASIA SLIG; PLATELET ESTIMATE SLIGHTLY DECREASED; RBC MORPHOLOGY COMMENT NORMAL
[2017-06-17 07:59] LABS: PLATELET MORPHOLOGY COMMENT NORMAL
[2017-06-17] MEDS: AMIODARONE HCL 200 MG TAB PO SCH (09:00)
[2017-06-17] MEDS: [UNRECOGNIZED DRUG - OTHER] PO SCH ×2 (09:00→17:00)
[2017-06-17] MEDS: INSULIN DETEMIR 100 UNIT/ML PEN SQ SCH (09:00)
[2017-06-17] MEDS: DORZOLAMIDE/TIMOLOL (OPTH SOL) 10 ML DRPETTE OP SCH ×2 (09:13→17:28)
[2017-06-17] MEDS: FUROSEMIDE INJ 10 MG/ML 4 ML VIAL IV SCH (09:13)
[2017-06-17] MEDS: MEROPENEM 500MG 500 MG in WATER STERILE 10ML VIAL 10 ML IV SCH (11:30)
[2017-06-17] MEDS: PRAVASTATIN 20 MG TAB PO SCH (19:31)
[2017-06-17] MEDS: CENTRAL TPN FORMULA 1 BAG IV SCH (20:00)
[2017-06-18] VITALS (52 sets, daily range): BP systolic 130–204; BP diastolic 58–96
--- NOTE | 2017-06-18 00:55 | Progress Note ---
DATE: June 17, 2017 SUBJECTIVE: Patient is extubated. He is on TPN. He failed speech and swallow evaluation. Patient has had no further episodes of hematemesis. Bowel movement with light brown stool. REVIEW OF SYSTEMS: Patient is very drowsy and lethargic at this time. Therefore, review of systems cannot be ascertained. MEDICATIONS: Reviewed the MAR. Patient is still on Protonix infusion. PHYSICAL EXAMINATION VITAL SIGNS: Temperature 98.8, pulse 89, respirations 16, blood pressure 159/76, oxygen saturation 100% on room air. GENERAL: Lethargic and drowsy. HEENT: Moist mucous membranes. Anicteric sclerae. CV: S1 and S2 regular. LUNGS: Bilaterally grossly clear with occasional bilateral rales. Poor inspiratory effort. ABDOMEN: Soft, nondistended and nontender. No palpable mass or hernia. Positive bowel sounds. EXTREMITIES: Warm. Right leg is in a splint. LABS: Hemoglobin 8.4 down from 8.5. Electrolytes normal. Creatinine has gone up to 2.2 from 1.69. Liver tests showed total bilirubin 2.6, AST 26, ALT 42, alkaline phosphatase 72. IMPRESSION: No further gastrointestinal bleeding. Hematemesis was secondary to esophagitis as it was revealed on upper endoscopy performed on this admission. PLAN: Discontinue PPI infusion. Follow up speech and swallow evaluation. Oral feeding accordingly. Change Protonix to IV twice daily for GI prophylaxis. Rest of the care as per primary team. Job#: [id number] RI MTDD
[2017-06-18] MEDS: INSULIN LISPRO 100 UNIT/1 ML 3ML VIAL SQ SCH ×4 (01:00→18:00)
[2017-06-18] MEDS: LEVOFLOXACIN 500MG/D5W 100ML 100 ML IV SCH (04:30)
[2017-06-18 05:08] LABS: BASOPHILS % 0.2 % (0.0-1.0); EOSINOPHILS # (AUTO) 0.1 (0.0-0.4); EOSINOPHILS % 0.4 % (0.0-6.0); HEMATOCRIT 25.4 % (38.2-49.6); HEMOGLOBIN 8.5 g/dL (14.0-18.0); LYMPHOCYTES % 9.2 % (18.0-39.1); MEAN CORPUSCULAR HEMOGLOBIN 28.6 pg (28-32); MEAN CORPUSCULAR HGB CONC 33.5 g/dL (31-35); MEAN CORPUSCULAR VOLUME 85.5 fL (81-99); MONOCYTES # (AUTO) 0.6 (0.2-0.8); NEUTROPHILS # (AUTO) 9.4 (2.1-6.9); NEUTROPHILS % 83.2 % (38.7-80.0); PLATELET COUNT 141 x10e3/uL (140-360); RED BLOOD COUNT 2.97 x10e6/uL (4.3-5.7); RED CELL DISTRIBUTION WIDTH 16.4 % (11.7-14.4)
[2017-06-18 05:24] LABS: ANION GAP 14.8 mmol/L (8-16); CALCIUM 7.8 mg/dL (8.4-10.2); CREATININE, SERUM 2.22 mg/dL (0.72-1.25); MAGNESIUM 2.2 MG/DL (1.3-2.1); POTASSIUM 3.8 mmol/L (3.5-5.1)
[2017-06-18 05:30] LABS: EOSINOPHILS % (MANUAL) 1 % (0-7); LYMPHOCYTES % (MANUAL) 8 % (19-48); MONOCYTES % (MANUAL) 4 % (3.4-9.0); NEUTROPHILS % (MANUAL) 87 % (40-74)
[2017-06-18 05:31] LABS: ANISOCYTOSIS SLIGHT; HYPOCHROMASIA SLIGHT; PLATELET ESTIMATE SLIGHTLY DECREASED; PLATELET MORPHOLOGY COMMENT FEW LARGE; RBC MORPHOLOGY COMMENT NORMAL
[2017-06-18] MEDS: NOREPINEPHRINE BITARTRATE/ NS 250 ML IV SCH (06:15)
[2017-06-18] MEDS: [UNRECOGNIZED DRUG - OTHER] PO SCH ×2 (09:00→17:00)
[2017-06-18] MEDS: AMIODARONE HCL 200 MG TAB PO SCH (09:00)
[2017-06-18] MEDS: INSULIN DETEMIR 100 UNIT/ML PEN SQ SCH (09:00)
[2017-06-18] MEDS: DORZOLAMIDE/TIMOLOL (OPTH SOL) 10 ML DRPETTE OP SCH ×2 (09:00→18:11)
[2017-06-18] MEDS: PANTOPRAZOLE 40 MG 10ML VIAL IV SCH ×2 (11:34→18:11)
[2017-06-18] MEDS: MEROPENEM 500MG 500 MG in WATER STERILE 10ML VIAL 10 ML IV SCH (12:00)
[2017-06-18] MEDS: FUROSEMIDE INJ 10 MG/ML 4 ML VIAL IV SCH ×3 (12:00→21:38)
[2017-06-18] MEDS ORDERED: METOPROLOL TARTRATE INJ 1 MG/ML VIAL IV PRN (18:30)
[2017-06-18] MEDS: CENTRAL TPN FORMULA 1 BAG IV SCH (20:00)
[2017-06-18] MEDS: PRAVASTATIN 20 MG TAB PO SCH (21:00)
[2017-06-18] MEDS ORDERED: SODIUM CHLORIDE 0.9% 250ML 250 ML ONE (21:10)
[2017-06-18] MEDS: ACETAMINOPHEN 1000 MG/100 ML IV PRN (21:38)
--- NOTE | 2017-06-18 23:20 | Progress Note ---
DATE: June 18, 2017 SUBJECTIVE: No abdominal pain. No further episode of any nausea, vomiting. REVIEW OF SYSTEMS: GENERAL: No fever or chills. CVS: No chest pain, palpitation. RESPIRATORY: No cough or expectoration. MEDICATIONS: Reviewed, as per AUG. PHYSICAL EXAMINATION: VITAL SIGNS: Temperature 100.3, pulse ranging from 102 to 95, respiration 18, blood pressure 146/73, oxygen saturation 97% on room air. GENERAL: Not in any acute distress. HEENT: Moist mucous membranes. Anicteric sclerae. CVS: S1 and S2 regular. LUNGS: Bilaterally grossly clear. ABDOMEN: Soft, nondistended, nontender. No palpable mass or hernia. Positive bowel sounds. EXTREMITIES: Right leg in a splint. Left leg, no edema. LABS: WBC has gone up to 11.34 from 9.54, hemoglobin 8.5, hematocrit 25.4, platelet count 141,000. Sodium 143, potassium 3.8, chloride 112, bicarb 20, BUN 72, creatinine 2.22, glucose 262. PT 14.8, INR 1.10. IMPRESSION: 1. Erosive esophagitis that caused hematemesis. No further episode. 2. Oropharyngeal dysphagia. Patient has failed speech and swallow evaluation. PLAN: Continue IV PPI twice daily. Continue TPN. Re-evaluation by speech and swallow. If patient fails on his speech and swallow, then EGD/PEG can be considered only if family approves. Job#: [id number]
[2017-06-19] VITALS: BP 152/77
[2017-06-19 04:00] VITALS: BP 195/92
[2017-06-19] MEDS: ACETAMINOPHEN 1000 MG/100 ML IV PRN ×2 (04:39→20:37)
[2017-06-19] MEDS: LEVOFLOXACIN 500MG/D5W 100ML 100 ML IV SCH (05:13)
[2017-06-19] MEDS: INSULIN LISPRO 100 UNIT/1 ML 3ML VIAL SQ SCH ×4 (06:00→19:16)
[2017-06-19] MEDS: NOREPINEPHRINE BITARTRATE/ NS 250 ML IV SCH (06:15)
[2017-06-19 06:29] LABS: BASOPHILS % 0.2 % (0.0-1.0); EOSINOPHILS # (AUTO) 0.1 (0.0-0.4); EOSINOPHILS % 0.6 % (0.0-6.0); HEMOGLOBIN 8.7 g/dL (14.0-18.0); LYMPHOCYTES # (AUTO) 1.3 (1.0-3.2); LYMPHOCYTES % 10.2 % (18.0-39.1); MEAN CORPUSCULAR HEMOGLOBIN 28.5 pg (28-32); MEAN CORPUSCULAR HGB CONC 33.5 g/dL (31-35); MEAN CORPUSCULAR VOLUME 85.2 fL (81-99); MONOCYTES # (AUTO) 0.7 (0.2-0.8); MONOCYTES % 5.7 % (4.4-11.3); NEUTROPHILS # (AUTO) 10.4 (2.1-6.9); NEUTROPHILS % 81.8 % (38.7-80.0); PLATELET COUNT 222 x10e3/uL (140-360); RED BLOOD COUNT 3.05 x10e6/uL (4.3-5.7); RED CELL DISTRIBUTION WIDTH 16.7 % (11.7-14.4)
[2017-06-19 06:55] LABS: ALBUMIN 1.7 g/dL (3.5-5.0); ALBUMIN/GLOBULIN RATIO 0.5 (0.8-2.0); ANION GAP 18.5 mmol/L (8-16); CALCIUM 7.8 mg/dL (8.4-10.2); CREATININE, SERUM 2.52 mg/dL (0.72-1.25); MAGNESIUM 2.4 MG/DL (1.3-2.1); POTASSIUM 4.5 mmol/L (3.5-5.1)
[2017-06-19 07:50] LABS: HYPOCHROMASIA SLIGHT; LYMPHOCYTES % (MANUAL) 5 % (19-48); MONOCYTES % (MANUAL) 2 % (3.4-9.0); MYELOCYTES % (MANUAL) 1 % (0-0); NEUTROPHILS % (MANUAL) 91 % (40-74); PLATELET ESTIMATE ADEQUATE; PLATELET MORPHOLOGY COMMENT NORMAL; RBC MORPHOLOGY COMMENT NORMAL
[2017-06-19 08:39] VITALS: BP 194/86
[2017-06-19] MEDS: [UNRECOGNIZED DRUG - OTHER] PO SCH ×2 (09:00→17:00)
[2017-06-19] MEDS: AMIODARONE HCL 200 MG TAB PO SCH (09:00)
[2017-06-19] MEDS: INSULIN DETEMIR 100 UNIT/ML PEN SQ SCH (09:58)
[2017-06-19] MEDS: CLONIDINE HCL 0.2 MG/24 HR 1 EA PATCH TOP SCH (09:58)
[2017-06-19] MEDS: DORZOLAMIDE/TIMOLOL (OPTH SOL) 10 ML DRPETTE OP SCH ×2 (09:58→17:56)
[2017-06-19] MEDS: PANTOPRAZOLE 40 MG 10ML VIAL IV SCH ×2 (09:58→17:56)
[2017-06-19] MEDS: HYDRALAZINE HCL 20 MG/ML VIAL IV PRN (11:24)
[2017-06-19 12:14] VITALS: BP 196/107
[2017-06-19] MEDS: MEROPENEM 500MG 500 MG in WATER STERILE 10ML VIAL 10 ML IV SCH (12:31)
[2017-06-19] MEDS: MORPHINE SULFATE 2 MG/ML SYR IV PRN (15:51)
[2017-06-19 15:56] VITALS: BP 162/85
[2017-06-19] MEDS: FUROSEMIDE INJ 10 MG/ML 4 ML VIAL IV SCH ×2 (16:19→21:55)
--- NOTE | 2017-06-19 17:27 | Diagnostic Imaging Report ---
PROCEDURE:X-RAY MODIFIED BARIUM SWALLOW COMPARISON:None. INDICATIONS:Dysphagia DISCUSSION:Fluoroscopic examination was performed in conjunction with speech pathology, during swallowing of a variety of thin and thick liquid consistencies. No premature spillage to the vallecula or the piriform sinus. Laryngeal penetration of thin and vallecular residue of all remaining oral trials. Víctor aspiration of thin liquids with delayed cough. Deep penetration and trace aspiration the vallecular residue with multiple consistencies. No pharyngeal wall or base of tongue residue. CONCLUSION:Víctor aspiration and penetration and moderate to maximum vallecular residue. Please see the report from speech pathology for complete details. Quinton Daniels M.D. Dictated by: Quinton Daniels M.D. on 06/19/2017 at 17:35 Electronically approved by: Quinton Daniels M.D. on 06/19/2017 at 17:35
[2017-06-19] MEDS: CENTRAL TPN FORMULA 1 BAG IV SCH (20:00)
[2017-06-19] MEDS: PRAVASTATIN 20 MG TAB PO SCH (21:00)
[2017-06-19 21:02] VITALS: BP 142/76
[2017-06-20] MEDS: INSULIN LISPRO 100 UNIT/1 ML 3ML VIAL SQ SCH ×4 (00:38→18:30)
[2017-06-20 01:26] VITALS: BP 153/80
[2017-06-20] MEDS: ONDANSETRON HCL INJ 2 MG/ML VIAL IV PRN (04:42)
[2017-06-20] MEDS: MORPHINE SULFATE 2 MG/ML SYR IV PRN (04:43)
[2017-06-20] MEDS: LEVOFLOXACIN 500MG/D5W 100ML 100 ML IV SCH (05:00)
[2017-06-20] MEDS: FUROSEMIDE INJ 10 MG/ML 4 ML VIAL IV SCH (06:00)
[2017-06-20 06:55] VITALS: BP 160/78
[2017-06-20 07:37] LABS: BASOPHILS % 0.1 % (0.0-1.0); EOSINOPHILS # (AUTO) 0.1 (0.0-0.4); EOSINOPHILS % 0.8 % (0.0-6.0); HEMATOCRIT 26.8 % (38.2-49.6); HEMOGLOBIN 8.6 g/dL (14.0-18.0); LYMPHOCYTES # (AUTO) 1.2 (1.0-3.2); LYMPHOCYTES % 7.9 % (18.0-39.1); MEAN CORPUSCULAR HEMOGLOBIN 28.4 pg (28-32); MEAN CORPUSCULAR HGB CONC 32.1 g/dL (31-35); MEAN CORPUSCULAR VOLUME 88.4 fL (81-99); MONOCYTES # (AUTO) 0.6 (0.2-0.8); MONOCYTES % 3.9 % (4.4-11.3); NEUTROPHILS # (AUTO) 13.5 (2.1-6.9); NEUTROPHILS % 86.1 % (38.7-80.0); PLATELET COUNT 278 x10e3/uL (140-360); RED BLOOD COUNT 3.03 x10e6/uL (4.3-5.7); RED CELL DISTRIBUTION WIDTH 16.9 % (11.7-14.4)
[2017-06-20 07:59] LABS: ANION GAP 15.5 mmol/L (8-16); CREATININE, SERUM 2.44 mg/dL (0.72-1.25); POTASSIUM 4.5 mmol/L (3.5-5.1)
[2017-06-20 08:31] VITALS: BP 152/72
[2017-06-20] MEDS: AMIODARONE HCL 200 MG TAB PO SCH (09:00)
[2017-06-20] MEDS: [UNRECOGNIZED DRUG - OTHER] PO SCH ×2 (09:00→17:00)
[2017-06-20] MEDS: PANTOPRAZOLE 40 MG 10ML VIAL IV SCH ×2 (09:45→18:30)
[2017-06-20] MEDS: INSULIN DETEMIR 100 UNIT/ML PEN SQ SCH (09:45)
[2017-06-20] MEDS: DORZOLAMIDE/TIMOLOL (OPTH SOL) 10 ML DRPETTE OP SCH ×2 (09:45→18:30)
[2017-06-20 12:10] VITALS: BP 129/66
[2017-06-20] MEDS ORDERED: SODIUM CHLORIDE 0.9% 1000ML 2,000 ML ONE (12:17)
[2017-06-20] MEDS ORDERED: MIDAZOLAM HCL 2 MG/2 ML VIAL ONE (13:33)
[2017-06-20] MEDS: MEROPENEM 500MG 500 MG in WATER STERILE 10ML VIAL 10 ML IV SCH (14:36)
--- NOTE | 2017-06-20 15:39 | Diagnostic Imaging Report ---
EXAMINATION: CHEST SINGLE (PORTABLE) INDICATION: \S\rapid response \[id number] \S\1435 COMPARISON: Chest radiograph from 06/16/2017 FINDINGS: AP view TUBES and LINES: Right IJ hemodialysis catheter is stable in position. Interval removal of the endotracheal and NG/OG tubes. LUNGS: Lungs are well inflated. Worsening left midlung zone atelectasis. Decreased interstitial edema. PLEURA: Unchanged and small left pleural effusion. HEART AND MEDIASTINUM: The cardiomediastinal silhouette is unremarkable.. BONES AND SOFT TISSUES: No acute osseous lesion. Soft tissues are unremarkable. UPPER ABDOMEN: No free air under the diaphragm. IMPRESSION: Worsening left midlung zone atelectasis. Decreased in interstitial edema. Stable small left pleural effusion. Signed by: Dr. Keyla Moore M.D. on 06/20/2017 3:36 PM
[2017-06-20 16:35] VITALS: BP 179/86
[2017-06-20] MEDS ORDERED: MYCAFUNGIN SODIUM 100 MG/100 ML BAG IV ONE (17:30)
[2017-06-20] MEDS ORDERED: MICAFUNGIN SODIUM 100 ML IV ONE (17:30)
--- NOTE | 2017-06-20 19:43 | Consultation ---
DATE OF CONSULTATION: June 20, 2017 REASON FOR CONSULTATION: Recommendation for antibiotic. HISTORY OF PRESENT ILLNESS: This is a 71-year-old gentleman who does not provide any meaningful information. History was taken mainly from the record. I have reviewed all the record and all the chart, labs and medication list. There is no family for me to discuss. I also talked with the nurse taking care of him. Mr. Frederick is a 71-year-old gentleman who has a complicated medical history. He has history of diabetes mellitus, hypertension, dementia, hyperlipidemia, bedridden, chronic debilitated state, not ambulatory. He was initially admitted to this hospital, [facility] after a fall. He was found to have right hip fracture. The patient has multiple comorbidities, so it was decided to do conservative treatment and not a surgical approach. The patient during his stay developed respiratory distress and had pneumonia and respiratory failure, intubated. He had coffee-ground emesis. The patient was extubated. He is currently on the medical floor. He was originally admitted on June 05, 2017. He has been in this hospital since then. Infectious disease was consulted today to make recommendation in terms of antibiotic. HOME MEDICATIONS 1. Amiodarone 400 mg daily. 2. Amlodipine 10 mg daily. 3. Aspirin 81 mg daily. 4. Nebulizer inhaler. 5. Coreg. 6. Plavix. 7. Colchicine. 8. Pepcid 9. Tricor. 10. Iron tablet. 11. Lasix. 12. Gabapentin. 13. Insulin. PAST MEDICAL HISTORY: Diabetes mellitus, hypertension, dementia, hyperlipidemia, debilitated. FAMILY HISTORY: Hypertension and diabetes. ALLERGIES: NKA. SOCIAL HISTORY: There is no smoking, drug abuse or alcohol abuse. REVIEW OF SYSTEMS: Could not be obtained. LABORATORY DATA: When he first came, his white count was 8.4, hemoglobin 10.5, hematocrit 33, platelets 291. Chemistries: Sodium 143, potassium 4.4. His laboratory data now: His white count is 15.7, hemoglobin 8.6, hemoglobin 26. Sodium 148, potassium 4.5, creatinine 2.44. His urine cultures are showing yeast. The blood cultures have been negative. Patient has been seen by Dr. Harley Ford from an orthopedic point of view. He was seen by Dr. Velázquez. He was seen by Dr. Quintero. Patient had a central line placement during his stay on June 11, 2017. He also had a temporary hemodialysis catheter placement. At one point, he was on TPN. MEDICATION LIST: He is currently on meropenem and insulin. He was on levofloxacin, Zofran, Catapres, Versed, amiodarone. PHYSICAL EXAMINATION GENERAL: He is totally confused. VITALS: Stable. Currently no fever, although earlier he had 100.7. HEENT: Normocephalic. NECK: Supple. CHEST: Few crackles bilaterally. COR: S1 and S2. No S3, S4 or murmur. ABDOMEN: Soft. Bowel sounds are present. EXTREMITIES: No edema. SKIN: There is no rash. Chest x-ray showed worsening left mid lung zone atelectasis. IMPRESSION 1. Fever and leukocytosis in a patient who has been in the hospital for the last 14 days on antibiotic for probably aspiration pneumonia with a hip fracture. He currently has a right leg splint. I am concerned about fungemia, especially in a patient who patient has been on TPN and has a central line. Will get blood cultures. Will put him on micafungin. Discontinue meropenem. Discontinue Levaquin. Recheck CBC. Recheck chem panel. 2. Debilitated. 3. Can we wean down the TPN? 4. Esophagitis. 5. Dysphagia. 6. Debilitated. 7. Chronic kidney disease. 8. Prognosis is really poor. 1. Anemia. 2. Will follow with you. Job#: [id number]
[2017-06-20] MEDS: CENTRAL TPN FORMULA 1 BAG IV SCH (20:00)
[2017-06-20 20:33] VITALS: BP 176/95
[2017-06-20] MEDS: HYDRALAZINE HCL 20 MG/ML VIAL IV PRN (20:42)
[2017-06-20] MEDS: PRAVASTATIN 20 MG TAB PO SCH (20:42)
[2017-06-21] VITALS (8 sets, daily range): BP systolic 104–167; BP diastolic 63–85
[2017-06-21] MEDS: INSULIN LISPRO 100 UNIT/1 ML 3ML VIAL SQ SCH ×4 (00:30→18:18)
[2017-06-21] MEDS: ONDANSETRON HCL INJ 2 MG/ML VIAL IV PRN (06:20)
[2017-06-21] MEDS: MORPHINE SULFATE 2 MG/ML SYR IV PRN ×2 (06:24→14:12)
[2017-06-21 08:17] LABS: BASOPHILS % 0.1 % (0.0-1.0); EOSINOPHILS # (AUTO) 0.1 (0.0-0.4); EOSINOPHILS % 0.9 % (0.0-6.0); HEMATOCRIT 24.7 % (38.2-49.6); LYMPHOCYTES # (AUTO) 1.4 (1.0-3.2); LYMPHOCYTES % 9.6 % (18.0-39.1); MEAN CORPUSCULAR HEMOGLOBIN 29.1 pg (28-32); MEAN CORPUSCULAR HGB CONC 32.4 g/dL (31-35); MEAN CORPUSCULAR VOLUME 89.8 fL (81-99); MONOCYTES # (AUTO) 0.8 (0.2-0.8); MONOCYTES % 5.7 % (4.4-11.3); NEUTROPHILS # (AUTO) 12.1 (2.1-6.9); NEUTROPHILS % 82.7 % (38.7-80.0); PLATELET COUNT 253 x10e3/uL (140-360); RED BLOOD COUNT 2.75 x10e6/uL (4.3-5.7); RED CELL DISTRIBUTION WIDTH 16.7 % (11.7-14.4)
[2017-06-21] MEDS: AMIODARONE HCL 200 MG TAB PO SCH (09:00)
[2017-06-21] MEDS: [UNRECOGNIZED DRUG - OTHER] PO SCH ×2 (09:00→17:00)
[2017-06-21] MEDS: DORZOLAMIDE/TIMOLOL (OPTH SOL) 10 ML DRPETTE OP SCH ×2 (09:30→17:22)
[2017-06-21] MEDS: PANTOPRAZOLE 40 MG 10ML VIAL IV SCH ×2 (09:30→17:22)
[2017-06-21] MEDS: INSULIN DETEMIR 100 UNIT/ML PEN SQ SCH (09:30)
[2017-06-21] MEDS ORDERED: ACETAMINOPHEN 1000 MG/100 ML IV PRN (09:45)
[2017-06-21 09:48] LABS: ALBUMIN 1.8 g/dL (3.5-5.0); ALBUMIN/GLOBULIN RATIO 0.5 (0.8-2.0); ANION GAP 15.6 mmol/L (8-16); CALCIUM 8.1 mg/dL (8.4-10.2); CREATININE, SERUM 1.84 mg/dL (0.72-1.25); MAGNESIUM 2.4 MG/DL (1.3-2.1); POTASSIUM 4.6 mmol/L (3.5-5.1)
[2017-06-21 11:42] LABS: CREATINE KINASE MB 0.4 ng/mL (0.00-5.00); TROPONIN I 0.025 ng/mL (0-0.300)
[2017-06-21] MEDS ORDERED: ASPIRIN 81 MG CHEW TAB PO ONE (12:00)
[2017-06-21] MEDS: METOPROLOL TARTRATE INJ 1 MG/ML VIAL IV SCH ×2 (12:11→17:22)
--- NOTE | 2017-06-21 12:55 | Consultation ---
DATE OF CONSULTATION: June 21, 2017 CARDIOLOGY CONSULTATION Mr. Frederick is an unfortunate 71-year-old gentleman whose history has been obtained from the chart. He was transferred from [facility] where he was admitted, being chronically bedridden and debilitated with dementia, hypertension and hyperlipidemia. He has a right hip fracture for which they are not planning on doing any intervention. However, he is on intravenous TPN as he has failed a swallowing study and is unable to swallow. A PEG tube is being planned. Yesterday while receiving dialysis for his end-stage renal disease, he had sustained ventricular tachycardia for an excess of 3 minutes. He remained hemodynamically stable and converted spontaneously to sinus rhythm. Currently, he remains in sinus rhythm. EKG shows a normal sinus rhythm. Cardiac enzymes were not obtained. Echocardiogram done last week shows mild aortic valve stenosis with normal LV ejection fraction. PAST MEDICAL HISTORY: As listed above. SOCIAL AND FAMILY HISTORY: Could not be obtained. REVIEW OF SYSTEMS: Could not be obtained as the patient has advanced dementia. PHYSICAL EXAMINATION VITALS: Temperature 100.7. Heart rate is 104. Blood pressure 160/85. O2 sat is 98%. CARDIOVASCULAR: Regular rhythm, a 3/6 systolic murmur. S4 gallop. LUNGS: Occasional crackles and rhonchi. ABDOMEN: Soft. LABS: WBC count is 14,000, hemoglobin is 8. Serum creatinine 1.8. Transaminases are mildly elevated. ASSESSMENT 1. Sustained ventricular tachycardia. 2. Immediate surgical need for percutaneous endoscopic gastrostomy tube placement. 3. Mild aortic valve stenosis. RECOMMENDATION: Mr. Frederick had sustained ventricular tachycardia while undergoing his dialysis. He is at high risk for ischemic heart disease at this point. Further evaluation with a Lexiscan nuclear stress test. This will be scheduled prior to him undergoing further surgical interventions. Scheduled intravenous beta lionel will be initiated. I thank Dr. Chapin for this consultation. Job#: [id number]
[2017-06-21] MEDS: METRONIDAZOLE 500MG/NS 100ML 100 ML IV SCH ×2 (14:12→21:22)
[2017-06-21] MEDS: MICAFUNGIN SODIUM 100 ML IV SCH (18:19)
[2017-06-21] MEDS: CENTRAL TPN FORMULA 1 BAG IV SCH (20:00)
[2017-06-21] MEDS: PRAVASTATIN 20 MG TAB PO SCH (21:00)
--- NOTE | 2017-06-21 22:38 | Progress Note ---
DATE: June 21, 2017 SUBJECTIVE: Patient is currently getting TPN. He repeatedly failed speech and swallow evaluation. Long-term alternative method of nutrition recommended. REVIEW OF SYSTEMS: Unobtainable MEDICATIONS: Reviewed, as per AUG. PHYSICAL EXAMINATION: VITAL SIGNS: Temperature 97, pulse 85, respiration 18, blood pressure 149/65, oxygen saturation 95% on 2 liters of nasal cannula. GENERAL: Drowsy, lethargic. HEENT: Oral mucosa is moist. Anicteric sclerae. CVS: S1 and S2 regular. No gallop, murmur, or rub. LUNGS: Bilaterally grossly clear. ABDOMEN: Soft, nondistended, nontender. No palpable mass or hernia. Positive bowel sounds. EXTREMITIES: Warm. Right leg in a splint. No edema in the left leg. LABS: WBC has come down to 14.58, hemoglobin down to 8 from 8.6, hematocrit 24.7, platelet count 253,000. Sodium 146, potassium 4.6, chloride 114, bicarb 21, BUN 57, creatinine 1.84 down from 2.44, glucose 198. Chest x-ray on June 20, 2017 showed worsening left mid lung zone atelectasis, decreased interstitial edema. IMPRESSION: 1. Erosive esophagitis that caused hematemesis on this admission. On proton pump inhibitor. 2. Oropharyngeal dysphagia, failed speech and swallow evaluation x2. PLAN: Cardiac workup is underway. Once cleared by cardiology, then patient can undergo EGD and PEG placement as it has been approved by family. Job#: [id number] DR RODRIGUEZ
[2017-06-22] VITALS (14 sets, daily range): BP systolic 121–169; BP diastolic 54–90
[2017-06-22] MEDS: INSULIN LISPRO 100 UNIT/1 ML 3ML VIAL SQ SCH ×5 (00:31→18:00)
[2017-06-22] MEDS: METOPROLOL TARTRATE INJ 1 MG/ML VIAL IV SCH ×4 (00:32→17:59)
[2017-06-22] MEDS: METRONIDAZOLE 500MG/NS 100ML 100 ML IV SCH ×3 (05:51→21:18)
[2017-06-22] MEDS: MORPHINE SULFATE 2 MG/ML SYR IV PRN (06:13)
[2017-06-22 07:06] LABS: BASOPHILS % 0.2 % (0.0-1.0); EOSINOPHILS # (AUTO) 0.2 (0.0-0.4); EOSINOPHILS % 1.1 % (0.0-6.0); HEMATOCRIT 29.4 % (38.2-49.6); HEMOGLOBIN 9.2 g/dL (14.0-18.0); LYMPHOCYTES # (AUTO) 1.3 (1.0-3.2); LYMPHOCYTES % 6.8 % (18.0-39.1); MEAN CORPUSCULAR HEMOGLOBIN 29.2 pg (28-32); MEAN CORPUSCULAR HGB CONC 31.3 g/dL (31-35); MEAN CORPUSCULAR VOLUME 93.3 fL (81-99); MONOCYTES # (AUTO) 0.9 (0.2-0.8); MONOCYTES % 4.7 % (4.4-11.3); NEUTROPHILS # (AUTO) 16.2 (2.1-6.9); NEUTROPHILS % 86.4 % (38.7-80.0); PLATELET COUNT 281 x10e3/uL (140-360); RED BLOOD COUNT 3.15 x10e6/uL (4.3-5.7)
[2017-06-22 08:03] LABS: ALBUMIN 1.7 g/dL (3.5-5.0); ALBUMIN/GLOBULIN RATIO 0.4 (0.8-2.0); ANION GAP 15.4 mmol/L (8-16); CALCIUM 8.2 mg/dL (8.4-10.2); CREATININE, SERUM 1.78 mg/dL (0.72-1.25); MAGNESIUM 2.7 MG/DL (1.3-2.1); POTASSIUM 5.4 mmol/L (3.5-5.1)
[2017-06-22] MEDS: CEFEPIME HCL 1 GM VIAL IV SCH (08:14)
[2017-06-22] MEDS: [UNRECOGNIZED DRUG - OTHER] PO SCH ×2 (08:14→17:00)
[2017-06-22] MEDS: PANTOPRAZOLE 40 MG 10ML VIAL IV SCH ×2 (08:14→17:48)
[2017-06-22] MEDS: DORZOLAMIDE/TIMOLOL (OPTH SOL) 10 ML DRPETTE OP SCH ×2 (08:14→17:48)
[2017-06-22] MEDS: AMIODARONE HCL 200 MG TAB PO SCH (08:14)
[2017-06-22] MEDS: INSULIN DETEMIR 100 UNIT/ML PEN SQ SCH (08:15)
[2017-06-22] MEDS ORDERED: MICAFUNGIN SODIUM 100 ML IV SCH (09:00)
[2017-06-22] MEDS ORDERED: MICAFUNGIN SODIUM 50 ML IV SCH (09:00)
[2017-06-22] MEDS ORDERED: MICAFUNGIN SODIUM 50 MG/50 ML BAG IV SCH (09:00)
[2017-06-22] MEDS ORDERED: FUROSEMIDE INJ 10 MG/ML 4 ML VIAL IV ONE (09:30)
[2017-06-22] MEDS ORDERED: SODIUM BICARBONATE 8.4% INJ 50 ML SYR IV ONE (09:30)
[2017-06-22] MEDS ORDERED: REGADENOSON 0.4 MG/5 ML SYR IV ONE (09:51)
[2017-06-22] MEDS ORDERED: DEXTROSE 50% SYRINGE 50 ML IV ONE (10:00)
[2017-06-22] MEDS: ACETAMINOPHEN 1000 MG/100 ML IV SCH ×2 (17:00→23:05)
[2017-06-22] MEDS ORDERED: SODIUM CHLORIDE 0.9% 1000ML 1,000 ML IV SCH (17:15)
[2017-06-22 17:23] LABS: BASOPHILS % 0.1 % (0.0-1.0); EOSINOPHILS % 0.2 % (0.0-6.0); HEMATOCRIT 23.5 % (38.2-49.6); HEMOGLOBIN 7.5 g/dL (14.0-18.0); LYMPHOCYTES # (AUTO) 1.2 (1.0-3.2); LYMPHOCYTES % 6.7 % (18.0-39.1); MEAN CORPUSCULAR HEMOGLOBIN 29.5 pg (28-32); MEAN CORPUSCULAR HGB CONC 31.9 g/dL (31-35); MEAN CORPUSCULAR VOLUME 92.5 fL (81-99); MONOCYTES # (AUTO) 0.8 (0.2-0.8); MONOCYTES % 4.4 % (4.4-11.3); NEUTROPHILS # (AUTO) 15.8 (2.1-6.9); NEUTROPHILS % 87.8 % (38.7-80.0); PLATELET COUNT 296 x10e3/uL (140-360); RED BLOOD COUNT 2.54 x10e6/uL (4.3-5.7); RED CELL DISTRIBUTION WIDTH 16.9 % (11.7-14.4)
[2017-06-22 17:30] LABS: INR 1.15; PROTHROMBIN TIME 15.3 seconds (11.9-14.5)
[2017-06-22 17:37] LABS: ALBUMIN 1.6 g/dL (3.5-5.0); ALBUMIN/GLOBULIN RATIO 0.4 (0.8-2.0); ANION GAP 13.6 mmol/L (8-16); CALCIUM 8.2 mg/dL (8.4-10.2); CREATININE, SERUM 1.99 mg/dL (0.72-1.25); POTASSIUM 4.6 mmol/L (3.5-5.1)
[2017-06-22] MEDS: SODIUM CHLORIDE 0.9% 1000ML 1,000 ML IV SCH (17:48)
[2017-06-22] MEDS: MICAFUNGIN SODIUM 100 ML IV SCH (18:00)
[2017-06-22] MEDS ORDERED: SODIUM CHLORIDE 0.9% 250ML 250 ML IV ONE (18:30)
--- NOTE | 2017-06-22 18:57 | Progress Note ---
DATE: June 22, 2017 CARDIOLOGY PROGRESS NOTE SUBJECTIVE: The patient is awake, but not very interactive. He denies shortness of breath, but does endorse chest pain. He was seen for nuclear stress test today. OBJECTIVE VITALS: Temperature 96.3 degrees, pulse 87, respiratory rate 20, blood pressure 143/64, and oxygen saturation 100% on 2 L nasal cannula. GENERAL: Elderly man chronically ill-appearing. LUNGS: Clear to auscultation bilaterally. No wheezes or crackles. CARDIOVASCULAR: Normal rate and regular rhythm. A 3/6 systolic murmur. ABDOMEN: Soft. EXTREMITIES: No edema. CARDIAC MEDICATIONS 1. Metoprolol tartrate 5 mg IV q.6 h. 2. Amiodarone 400 mg p.o. daily. LABS: WBC 17.98, hemoglobin 7.5, hematocrit 23.5, and platelets 296,000. Sodium 147, potassium 4.6, chloride 119, CO2 19, BUN 67, creatinine 1.99. INR 1.15. Telemetry is normal sinus rhythm. IMPRESSION 1. Sustained ventricular tachycardia. 2. Dysphagia, on intravenous total parenteral nutrition. 3. Mild aortic valve stenosis. 4. Preserved left ventricular systolic function. 5. Right hip fracture. 6. Systemic inflammatory response syndrome criteria with fever and leukocytosis. 7. Diabetes mellitus. 8. Hypertension. 9. Hyperlipidemia. 10. Dementia. RECOMMENDATIONS: Patient underwent nuclear stress test today. We will review the images. Further recommendations pending stress test results. Continue intravenous beta blockade. Thank you for this consult. We will continue to follow. Job#: [id number] STEPHANIE
[2017-06-22] MEDS: PRAVASTATIN 20 MG TAB PO SCH (20:50)
[2017-06-22] MEDS ORDERED: PANTOPRAZOLE 40 MG 10ML VIAL ONE (20:57)
[2017-06-22] MEDS ORDERED: SODIUM CHLORIDE 0.9% 100 ML 100 ML ONE (20:58)
[2017-06-22] MEDS: PANTOPRAZOLE INJ 40 MG in SODIUM CHLORIDE 0.9% 50ML 50 ML IV SCH ×2 (21:18→23:29)
--- NOTE | 2017-06-22 21:18 | Progress Note ---
DATE: June 22, 2017 SUBJECTIVE: The patient became tachypneic. His hemoglobin dropped from 9.2 to 7.5. He passed a melanotic stool. The patient was subsequently transferred to ICU. The patient is currently incoherent. REVIEW OF SYSTEMS: GENERAL: No fever or chills. CVS: No chest pain or palpitations. RESPIRATORY: No cough or expectoration. MEDICATIONS: Reviewed as per AUG. OBJECTIVE VITAL SIGNS: Temperature 102.0, pulse ranging from 103-112. Respirations 20-28. Blood pressure 146/66 to 143/73. Oxygen saturation 93% on 2 liters of nasal cannula. GENERAL: Lethargic, drowsy. HEENT: Moist mucous membrane. Anicteric sclerae. CVS: S1 and S2, regular, but tachy with a 2/6 flow murmur at the apex. LUNGS: Bilaterally grossly clear, poor inspiratory effort. ABDOMEN: Soft, nondistended, nontender, no masses or hernia. Positive bowel sounds. EXTREMITIES: Warm. No leg edema. RECTAL EXAM: Revealed dark melanotic stool. LABORATORY DATA: WBC has come down to 17.98 from 18.76, hemoglobin down to 7.5 from 9.2. Hematocrit 23.5 from 29.4. Platelet count 296,000. Sodium 147, potassium 4.6, chloride 119, bicarb 19, BUN 67, which is up from 57, creatinine 1.99 up from 1.78. Glucose 254. Liver test showed total bilirubin 2.3, AST 252, ALT 199, alkaline phosphatase 144. IMPRESSION 1. Acute drop in hemoglobin, likely due to gastrointestinal bleed as the stool is quite melanotic. The patient had hematemesis on this admission for which upper endoscopy showed erosive esophagitis. He is on PPI IV twice daily. 2. Oropharyngeal dysphagia, on repeat swallow evaluation, currently on TPN. He will require PEG tube placement. Cardiology service has cleared for the procedure. 3. Abnormal liver test. Will do right upper quadrant sonogram to rule out obstruction. Will continue to monitor liver enzymes. PLAN: Start PPI IV infusion, IV fluids, monitor hemoglobin, transfuse if hemoglobin drops less than 7. Continue broad-spectrum intravenous antibiotics. If needed, we will perform upper endoscopy. Cardiology cleared for the procedure. Although the yield on endoscopy is likely going to be low, it is possible that the patient might have again bleed from esophagitis. Job#: [id number] GH MTDD
[2017-06-22] MEDS: CENTRAL TPN FORMULA 1 BAG IV SCH (21:19)
[2017-06-23] VITALS (40 sets, daily range): BP systolic 116–188; BP diastolic 54–89
[2017-06-23] MEDS: SODIUM CHLORIDE 0.9% 1000ML 1,000 ML IV SCH ×3 (01:01→17:15)
[2017-06-23] MEDS ORDERED: SODIUM CHLORIDE 0.9% 100 ML 100 ML ONE (04:22)
[2017-06-23] MEDS ORDERED: PANTOPRAZOLE 40 MG 10ML VIAL ONE ×2 (04:22→11:41)
[2017-06-23] MEDS: PANTOPRAZOLE INJ 40 MG in SODIUM CHLORIDE 0.9% 50ML 50 ML IV SCH ×4 (04:33→18:35)
[2017-06-23] MEDS: ACETAMINOPHEN 1000 MG/100 ML IV SCH ×2 (05:07→13:15)
[2017-06-23] MEDS: METRONIDAZOLE 500MG/NS 100ML 100 ML IV SCH ×3 (05:07→21:55)
[2017-06-23] MEDS: METOPROLOL TARTRATE INJ 1 MG/ML VIAL IV SCH ×4 (05:07→19:31)
[2017-06-23] MEDS: INSULIN LISPRO 100 UNIT/1 ML 3ML VIAL SQ SCH ×4 (05:34→19:47)
[2017-06-23 06:01] LABS: BASOPHILS % 0.1 % (0.0-1.0); EOSINOPHILS % 0.3 % (0.0-6.0); HEMATOCRIT 29.8 % (38.2-49.6); HEMOGLOBIN 9.5 g/dL (14.0-18.0); LYMPHOCYTES # (AUTO) 0.9 (1.0-3.2); LYMPHOCYTES % 8.3 % (18.0-39.1); MEAN CORPUSCULAR HEMOGLOBIN 28.8 pg (28-32); MEAN CORPUSCULAR HGB CONC 31.9 g/dL (31-35); MEAN CORPUSCULAR VOLUME 90.3 fL (81-99); MONOCYTES # (AUTO) 0.6 (0.2-0.8); MONOCYTES % 5.2 % (4.4-11.3); NEUTROPHILS # (AUTO) 9.3 (2.1-6.9); NEUTROPHILS % 85.6 % (38.7-80.0); PLATELET COUNT 249 x10e3/uL (140-360); RED CELL DISTRIBUTION WIDTH 17.1 % (11.7-14.4)
[2017-06-23 06:26] LABS: ANION GAP 11.9 mmol/L (8-16); CALCIUM 7.6 mg/dL (8.4-10.2); CREATININE, SERUM 1.74 mg/dL (0.72-1.25); MAGNESIUM 2.2 MG/DL (1.3-2.1); POTASSIUM 3.9 mmol/L (3.5-5.1)
[2017-06-23] MEDS: DORZOLAMIDE/TIMOLOL (OPTH SOL) 10 ML DRPETTE OP SCH ×2 (09:00→19:35)
[2017-06-23] MEDS: [UNRECOGNIZED DRUG - OTHER] PO SCH ×2 (09:00→17:00)
[2017-06-23] MEDS: AMIODARONE HCL 200 MG TAB PO SCH (09:00)
[2017-06-23 09:40] LABS: ANISOCYTOSIS SLIGHT; BAND NEUTROPHILS % (MANUAL) 3 %; HYPOCHROMASIA SLIGHT; LYMPHOCYTES % (MANUAL) 8 % (19-48); MONOCYTES % (MANUAL) 2 % (3.4-9.0); NEUTROPHILS % (MANUAL) 87 % (40-74); PLATELET ESTIMATE ADEQUATE; PLATELET MORPHOLOGY COMMENT NORMAL; RBC MORPHOLOGY COMMENT NORMAL
[2017-06-23] MEDS: CENTRAL TPN FORMULA 1 BAG IV SCH (09:45)
[2017-06-23] MEDS: DEXTROSE 5% IV SCH (10:45)
[2017-06-23] MEDS: SODIUM BICARBONATE 8.4% IV SCH (10:45)
--- NOTE | 2017-06-23 10:56 | Cardiology Report ---
DATE OF STUDY: NUCLEAR STRESS TEST INDICATIONS: Ventricular tachycardia. PROCEDURE PERFORMED: Pharmacologic stress testing was performed with regadenoson per protocol. The heart rate was 94 beats per minute at baseline and increased to 117 beats per minute during the pharmacologic infusion. The rest blood pressure was 140/66 and decreased to 93/42 mmHg, which is a normal response. The patient did not develop any significant symptoms. The resting electrocardiogram demonstrated normal sinus rhythm. There were no ST-segment changes consistent with myocardial ischemia. No arrhythmias were noted. Myocardial perfusion imaging was performed at rest following injection of 10 mCi of tetrofosmin at peak pharmacologic effect. The patient was injected with 33 mCi of tetrofosmin and gated post stress tomographic imaging was performed. FINDINGS 1. The overall quality of the study is good. 2. Attenuation artifact was absent. 3. Left ventricular cavity was noted to be normal on the rest and stress studies. SPECT images demonstrated homogenous tracer distribution throughout the myocardium. Gated SPECT imaging reveals normal myocardial thickening and wall motion. The left ventricular ejection fraction was found to be greater than 70%. IMPRESSION: Myocardial perfusion imaging is normal. Overall, left ventricular systolic function was normal without regional wall motion abnormalities. Job#: [id number]
[2017-06-23] MEDS: INSULIN DETEMIR 100 UNIT/ML PEN SQ SCH (11:35)
[2017-06-23] MEDS: CEFEPIME HCL 1 GM VIAL IV SCH (11:40)
--- NOTE | 2017-06-23 13:32 | Progress Note ---
DATE: Mr. Frederick is out of ICU. He seems a little bit more alert. No new problems. PHYSICAL EXAMINATION GENERAL: He is alert, follows very simple commands. VITALS: Stable. Currently afebrile. HEENT: He is nonicteric. Normocephalic. NECK: Supple. No JVD, lymphadenopathy or thyromegaly. CHEST: Clear bilaterally. COR: S1 and S2. No S3, S4 or murmur. ABDOMEN: Soft. Bowel sounds are present. EXTREMITIES: No edema. SKIN: No rash. IMPRESSION 1. Sepsis. Concern about aspiration pneumonia. Seems to be getting better. 2. Patient is at risk for aspiration pneumonia from mental status. 3. Fungemia, stable. The presence of fungemia seems to be getting better. 4. Bacteremia with gram-positive cocci on June 21, 2017. Recheck a blood culture, still pending. 5. Anemia of chronic disease. 6. Recurrent aspiration. 7. Dysphagia on total parenteral nutrition. 8. Ventricular tachycardia. 9. Aortic valve stenosis. 10. History of right hip fracture. 11. History of diabetes mellitus. 12. History of dementia. From an infectious disease point of view, he seems better. The prognosis is extremely poor. We currently have him on micafungin for presumptive fungemia to finish 14 days. He is also on cefepime and metronidazole for aspiration. Discussed with the family. They are unrealistic. I think the patient is carrying a grim prognosis. Will follow. Job#: [id number]
--- NOTE | 2017-06-23 18:01 | Progress Note ---
DATE: June 23, 2017 CARDIOLOGY PROGRESS NOTE SUBJECTIVE: The patient was transferred to the ICU yesterday afternoon after rapid response was called due to tachypnea. The patient is awake, but confused. He does not interact appropriately. OBJECTIVE VITAL SIGNS: Temperature 100.1 degrees, pulse 81, respiratory rate 16, blood pressure 155/72, oxygen saturation 98% on 4 liters nasal cannula. GENERAL: Elderly man in no acute distress, chronically ill appearing. Awake but not interactive. LUNGS: Clear to auscultation bilaterally. No wheezes or crackles. CARDIOVASCULAR: Normal rate and regular rhythm. A 3/6 systolic murmur. ABDOMEN: Soft. EXTREMITIES: No edema. CARDIAC MEDICATIONS 1. Metoprolol tartrate 5 mg IV q.6 h. 2. Clonidine patch q. week. LABS: WBC 10.86, hemoglobin 9.5, hematocrit 29.8, platelets 249,000, sodium 149, potassium 3.9, chloride 124, CO2 of 17, BUN 52, creatinine 1.74. TELEMETRY: Normal sinus rhythm. IMPRESSION 1. Sustained ventricular tachycardia. 2. Dysphagia, on intravenous total parenteral nutrition. 3. Acute anemia. 4. Systemic inflammatory response syndrome criteria with fever and leukocytosis. 5. Mildly elevated valve stenosis. 6. Preserved left ventricular systolic function. 7. Right hip fracture, managed conservatively. 8. Diabetes mellitus. 9. Hypertension. 10. Hyperlipidemia. 11. Dementia. RECOMMENDATIONS: Nuclear stress test was without evidence of ischemia with normal elevated systolic function. Continue intravenous beta blockade and amiodarone. The patient may proceed to PEG tube placement without further cardiac evaluation. Antibiotics per primary service. Thank you for this consult. We will continue to follow. Job#: [id number]
[2017-06-23] MEDS: MICAFUNGIN SODIUM 100 ML IV SCH (19:47)
--- NOTE | 2017-06-23 20:45 | Progress Note ---
DATE: NO DICTATION (:) Job#: [id number] CQ
[2017-06-23] MEDS: PRAVASTATIN 20 MG TAB PO SCH (21:00)
--- NOTE | 2017-06-23 21:52 | Progress Note ---
DATE: June 23, 2017 DATE OF : [birth year] GI PROGRESS NOTE SUBJECTIVE: Patient remains lethargic, drowsy, and incoherent. 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 It was not melenic. He has received 2 units of packed red blood cell. REVIEW OF SYSTEMS: Unobtainable. MEDICATIONS: Reviewed as per MAR. He is on intravenous pantoprazole drip along with other medication. PHYSICAL EXAMINATION VITAL SIGNS: Temperature 99.5, pulse 79, respirations 18, blood pressure 162/76 to 158/78. Pulse oximetry 97% on room air. GENERAL: Lethargic and drowsy. HEENT: Oral mucosa is moist. Anicteric sclerae. CVS: S1, S2, regular, with a 3/6 slow murmur at the apex. LUNGS: Bilaterally grossly clear, patient has a poor inspiratory effort. ABDOMEN: Soft, nondistended, nontender. No mass or hernia. Bowel sounds present. EXTREMITIES: Right leg is in splint. No edema in the left leg. LAB: WBC 10.86 down from 17.98, hemoglobin has come up to 9.5 from 7.5, hematocrit 29.8 from 23.5, platelet count 249,000. Sodium 149, potassium 3.9, chloride 124, bicarb 17, BUN 62, creatinine 1.74, BUN 36, glucose 242. IMPRESSIONS 1. Patient had acute drop in hemoglobin with the episode of melena. Patient has received 2 units of packed red blood cells with which hemoglobin has come up appropriately. 2. Oropharyngeal dysphagia, repeatedly failed speech and swallow evaluation. 3. Sepsis. 4. Abnormal liver enzymes. Ultrasound still pending. Viral hepatitis serology/hepatitis B is negative. PLAN: Continue PPI infusion, IV fluids. No need for serial hemoglobin as patient is no longer having any GI bleeding. Continue antibiotic for underlying sepsis. Right upper quadrant sonogram, which rule out any biliary obstruction. Check viral hepatitis C serology as well. Continue TPN. EGD and PEG tomorrow. Job#: [id number] CQ
[2017-06-23] MEDS: MORPHINE SULFATE 2 MG/ML SYR IV PRN (22:03)
[2017-06-24] VITALS (9 sets, daily range): BP systolic 140–183; BP diastolic 70–97
[2017-06-24] MEDS: METOPROLOL TARTRATE INJ 1 MG/ML VIAL IV SCH ×4 (00:11→17:53)
[2017-06-24] MEDS: PANTOPRAZOLE INJ 40 MG in SODIUM CHLORIDE 0.9% 50ML 50 ML IV SCH ×3 (00:14→08:42)
[2017-06-24] MEDS: SODIUM CHLORIDE 0.9% 1000ML 1,000 ML IV SCH ×3 (01:15→17:15)
[2017-06-24] MEDS: CENTRAL TPN FORMULA 1 BAG IV SCH (02:05)
[2017-06-24] MEDS: SODIUM BICARBONATE 8.4% IV SCH ×2 (04:04→17:30)
[2017-06-24] MEDS: DEXTROSE 5% IV SCH ×2 (04:04→17:30)
[2017-06-24] MEDS: METRONIDAZOLE 500MG/NS 100ML 100 ML IV SCH ×3 (05:32→21:18)
[2017-06-24] MEDS: INSULIN LISPRO 100 UNIT/1 ML 3ML VIAL SQ SCH ×5 (05:35→21:19)
[2017-06-24 06:28] LABS: BASOPHILS % 0.2 % (0.0-1.0); EOSINOPHILS # (AUTO) 0.3 (0.0-0.4); HEMATOCRIT 29.9 % (38.2-49.6); HEMOGLOBIN 9.8 g/dL (14.0-18.0); MEAN CORPUSCULAR HEMOGLOBIN 29.2 pg (28-32); MEAN CORPUSCULAR HGB CONC 32.8 g/dL (31-35); MONOCYTES # (AUTO) 0.6 (0.2-0.8); MONOCYTES % 6.4 % (4.4-11.3); NEUTROPHILS # (AUTO) 7.1 (2.1-6.9); NEUTROPHILS % 79.1 % (38.7-80.0); PLATELET COUNT 245 x10e3/uL (140-360); RED BLOOD COUNT 3.36 x10e6/uL (4.3-5.7); RED CELL DISTRIBUTION WIDTH 17.2 % (11.7-14.4)
[2017-06-24 06:58] LABS: ALBUMIN 1.5 g/dL (3.5-5.0); ALBUMIN/GLOBULIN RATIO 0.4 (0.8-2.0); ANION GAP 10.1 mmol/L (8-16); CALCIUM 8.2 mg/dL (8.4-10.2); CREATININE, SERUM 1.45 mg/dL (0.72-1.25); MAGNESIUM 1.8 MG/DL (1.3-2.1); POTASSIUM 3.1 mmol/L (3.5-5.1)
[2017-06-24] MEDS: [UNRECOGNIZED DRUG - OTHER] PO SCH ×2 (07:34→17:00)
[2017-06-24] MEDS: AMIODARONE HCL 200 MG TAB PO SCH (08:10)
[2017-06-24] MEDS: DORZOLAMIDE/TIMOLOL (OPTH SOL) 10 ML DRPETTE OP SCH ×2 (08:10→17:00)
[2017-06-24] MEDS: CEFEPIME HCL 1 GM VIAL IV SCH (08:10)
[2017-06-24] MEDS ORDERED: POTASSIUM CHLORIDE 20MEQ/100ML 200 ML IV ONE (08:15)
[2017-06-24] MEDS: INSULIN DETEMIR 100 UNIT/ML PEN SQ SCH (08:40)
[2017-06-24] MEDS ORDERED: CENTRAL TPN FORMULA 1 BAG IV SCH (11:01)
--- NOTE | 2017-06-24 12:55 | Progress Note ---
DATE: Mr. Frederick seems to be more alert. No new problems. No new complaints. I have discussed his prognosis with the family yesterday. They are aware about his very [id number] prognosis in the face that he has recurrent aspiration and malnutrition. Patient did have no new complaint. PHYSICAL EXAMINATION GENERAL: Alert, does not follow commands. VITALS: Stable. Currently afebrile. HEENT: He is nonicteric. Normocephalic. NECK: Supple. CHEST: Few crackles bilaterally. COR: S1 and S2. No murmur. ABDOMEN: Soft. Bowel sounds are present. EXTREMITIES: No edema. SKIN: No rash. IMPRESSION 1. Sepsis seemed to be resolving, probably due to fungemia and aspiration pneumonia. 2. Dysphagia, on TPN. 3. Right hip fracture, treated conservatively. 4. Diabetes mellitus. 5. Hypertension. 6. Hyperlipidemia. 7. Dementia with history of stroke. 8. Bacteremia, E. coli and Staph aureus contamination. PLAN: To finish 5 days of cefepime and Flagyl for pneumonia aspiration and 2 weeks of fluconazole. He is currently on Mycamine. He grew alanna parapsilosis in the urine what I think is probably reflective with his bacteremia. We will keep him on Mycamine for now to finish 14 days. Prognosis is guarded. Feeding tube to be placed when medically stable. Job#: [id number] VAS
--- NOTE | 2017-06-24 14:33 | Progress Note ---
DATE: June 24, 2017 CARDIOLOGY PROGRESS NOTE SUBJECTIVE: Patient denies chest pain or shortness of breath. He is scheduled for EGD and PEG placement today. OBJECTIVE VITAL SIGNS: Temperature 96.7 degrees, pulse 88, respiratory rate 18, blood pressure 144/74, oxygen saturation 100% on 4 liters nasal cannula. GENERAL: Elderly man in no acute distress, chronically ill-appearing. Awake, responds appropriately. LUNGS: Clear to auscultation bilaterally. No wheezes or crackles. CARDIOVASCULAR: Normal rate, regular rhythm. A 3/6 systolic murmur. ABDOMEN: Soft. EXTREMITIES: No edema. CARDIAC MEDICATIONS 1. Metoprolol tartrate 5 mg IV q.6 h. 2. Clonidine 1 patch q. week. 3. Amiodarone 400 mg p.o. daily. LABS: WBC 9.02, hemoglobin 9.8, hematocrit 29.9, platelets 245. Sodium 145, potassium 3.1, chloride 120, CO2 18, BUN 55, creatinine 1.45. TELEMETRY: Normal sinus rhythm. One episode of nonsustained ventricular tachycardia. IMPRESSION 1. Nonsustained ventricular tachycardia. 2. Dysphagia on intravenous total parenteral nutrition. 3. Acute anemia, now stable. 4. Systemic inflammatory response syndrome criteria with fever and leukocytosis. 5. Mild aortic valve stenosis. 6. Preserved left ventricular systolic function. 7. Right hip fracture managed conservatively. 8. Diabetes mellitus. 9. Hypertension. 10. Hyperlipidemia. 11. Dementia. RECOMMENDATIONS: Nuclear stress test result was without evidence of ischemia with normal systolic function. Continue IV beta blockade and amiodarone. The patient may proceed to PEG without further cardiac evaluation. Antibiotics per primary service. Thank you for this consult. We will continue to follow. Job#: [id number] EV
--- NOTE | 2017-06-24 15:55 | Diagnostic Imaging Report ---
EXAM: Right Upper Quadrant Ultrasound INDICATION: \S\abnormal liver enzymes, to check biliary obstruction \[id number] \S\[id number] COMPARISON: None. TECHNIQUE: Transverse and longitudinal images of the right upper abdomen were obtained. FINDINGS: Liver: Size: 15.5 cm in the right midclavicular line, normal Appearance: Normal echogenicity, smooth contour Mass: No focal masses Gallbladder: Stones/Sludge: Sludge Wall: 0.3 cm Appearance: Distended gallbladder. No pericholecystic fluid. Sonographic Bellamy's Sign: Negative Bile Ducts: Intrahepatic Ducts: No dilatation Extrahepatic Ducts: Common bile duct measures 0.4 cm, no dilatation Pancreas: Incompletely visualized due to overlying bowel gas, but no abnormality identified involving the visualized portions of the pancreas. Right Kidney: Size: 10.4 cm Echogenicity: Normal Parenchymal thickness: Normal Collecting system: No hydronephrosis Stones: None Cyst/Mass: None Vessels: Aorta: Visualized portions are normal Inferior Vena Cava: Visualized portions are normal Main Portal Vein: 0.9 cm, normal size with suggestion of bidirectional flow. Free Fluid: No ascites. Possible trace right pleural effusion. IMPRESSION: Bidirectional flow in the portal vein, which may be related heart failure or portal hypertension. Consider dedicated abdominal Doppler ultrasound for further evaluation. Distended gallbladder with sludge without sonographic evidence of acute cholecystitis. Signed by: DR. Rony Sylvester MD on 06/24/2017 3:51 PM
[2017-06-24] MEDS: MICAFUNGIN SODIUM 100 ML IV SCH (17:53)
[2017-06-24] MEDS ORDERED: EPHEDRINE SULFATE INJ 50 MG/10 ML SYR ONE (18:12)
[2017-06-24] MEDS ORDERED: PROPOFOL IV EMULSION 10 MG/ML 20 ML VIAL ONE (18:12)
[2017-06-24] MEDS ORDERED: PHENYLEPHRINE HCL 1% 10 MG/ML VIAL ONE (18:12)
[2017-06-24] MEDS ORDERED: FENTANYL CITRATE/PF 100MCG/2 ML INJ ONE (18:18)
[2017-06-24] MEDS: SIMVASTATIN 20 MG TAB PO SCH (21:00)
[2017-06-24] MEDS: HYDRALAZINE HCL 20 MG/ML VIAL IV PRN (21:19)
[2017-06-24] MEDS: MORPHINE SULFATE 2 MG/ML SYR IV PRN (21:50)
[2017-06-25] VITALS (8 sets, daily range): BP systolic 108–189; BP diastolic 59–84
[2017-06-25] MEDS: SODIUM CHLORIDE 0.9% 1000ML 1,000 ML IV SCH (01:15)
[2017-06-25] MEDS: METOPROLOL TARTRATE INJ 1 MG/ML VIAL IV SCH ×3 (02:26→13:03)
[2017-06-25] MEDS: INSULIN LISPRO 100 UNIT/1 ML 3ML VIAL SQ SCH ×3 (06:00→18:00)
[2017-06-25] MEDS: MORPHINE SULFATE 2 MG/ML SYR IV PRN (06:04)
[2017-06-25] MEDS: METRONIDAZOLE 500MG/NS 100ML 100 ML IV SCH ×3 (06:05→22:28)
[2017-06-25 06:09] LABS: BASOPHILS % 0.2 % (0.0-1.0); EOSINOPHILS # (AUTO) 0.3 (0.0-0.4); EOSINOPHILS % 3.3 % (0.0-6.0); HEMATOCRIT 30.1 % (38.2-49.6); HEMOGLOBIN 9.8 g/dL (14.0-18.0); LYMPHOCYTES # (AUTO) 1.1 (1.0-3.2); LYMPHOCYTES % 13.7 % (18.0-39.1); MEAN CORPUSCULAR HEMOGLOBIN 29.2 pg (28-32); MEAN CORPUSCULAR HGB CONC 32.6 g/dL (31-35); MEAN CORPUSCULAR VOLUME 89.6 fL (81-99); MONOCYTES # (AUTO) 0.5 (0.2-0.8); MONOCYTES % 5.7 % (4.4-11.3); NEUTROPHILS # (AUTO) 6.3 (2.1-6.9); NEUTROPHILS % 76.6 % (38.7-80.0); PLATELET COUNT 259 x10e3/uL (140-360); RED BLOOD COUNT 3.36 x10e6/uL (4.3-5.7)
[2017-06-25 06:33] LABS: ANION GAP 11.2 mmol/L (8-16); CALCIUM 8.5 mg/dL (8.4-10.2); CREATININE, SERUM 1.39 mg/dL (0.72-1.25); MAGNESIUM 2.2 MG/DL (1.3-2.1); POTASSIUM 3.2 mmol/L (3.5-5.1)
[2017-06-25] MEDS: [UNRECOGNIZED DRUG - OTHER] PO SCH ×2 (09:00→16:44)
[2017-06-25] MEDS: CEFEPIME HCL 1 GM VIAL IV SCH (09:13)
[2017-06-25] MEDS: AMIODARONE HCL 200 MG TAB PO SCH (09:13)
[2017-06-25] MEDS: DORZOLAMIDE/TIMOLOL (OPTH SOL) 10 ML DRPETTE OP SCH ×2 (09:13→17:16)
[2017-06-25] MEDS: INSULIN DETEMIR 100 UNIT/ML PEN SQ SCH (09:14)
[2017-06-25] MEDS ORDERED: POTASSIUM CHLORIDE 20MEQ/100ML 100 ML IV ONE (09:30)
--- NOTE | 2017-06-25 10:53 | Progress Note ---
DATE: June 25, 2017 GI PROGRESS NOTE SUBJECTIVE: Patient remains lethargic, drowsy and incoherent. REVIEW OF SYSTEMS: Unobtainable. MEDICATIONS: As per MAR. PHYSICAL EXAMINATION VITAL SIGNS: Temperature 98.2, pulse 89, respirations 18, blood pressure 189/75 to 179/84, oxygen saturation 100% on 2 L nasal cannula. GENERAL: Lethargic, drowsy and frail. HEENT: Moist mucous membranes. Anicteric sclerae. CV: S1 and S2 regular. LUNGS: Bilaterally grossly clear. Poor respiratory effort. ABDOMEN: Soft. PEG site is clean. No discharge or any bleeding. External bumper 2.5 cm from the skin. Bowel sounds present. EXTREMITIES: Warm. No leg edema. LABS: WBC 8.25, hemoglobin 9.8, hematocrit 30, and platelet count 259,000. Sodium 148, potassium 3.2, chloride 120, bicarb 20, BUN 50, creatinine 1.53. Abdominal ultrasound showed normal bile duct. No dilatation. Gallbladder sludge but no sonographic evidence of acute cholecystitis. Liver tests showed AST has come down to 235 from 252. ALT down to 84 from 199. Alkaline phosphatase 119 from 144. Total bilirubin 1.5 from 2.3. IMPRESSION 1. Status post percutaneous endoscopic gastrostomy placement for oropharyngeal dysphagia: Percutaneous endoscopic gastrostomy site is clean. No discharge. External bumper remains at 2.5 cm from the skin, which was the original marking. 2. Abnormal liver tests has resolved: Ultrasound ruled out any biliary obstruction. PLAN: Continue present medical management. Follow up hepatitis C antibody level. PEG can be used for feeding now. Job#: [id number] OH
[2017-06-25] MEDS: SODIUM BICARBONATE 8.4% IV SCH (13:02)
[2017-06-25] MEDS: DEXTROSE 5% IV SCH (13:02)
--- NOTE | 2017-06-25 13:26 | Progress Note ---
DATE: June 25, 2017 CARDIOLOGY PROGRESS NOTE SUBJECTIVE: Patient is awake. However, he is nonverbal. OBJECTIVE VITAL SIGNS: Temperature 96.4 degrees, pulse 86, respiratory rate 20, blood pressure 166/72, oxygen saturation 96% on room air. GENERAL: Elderly man in no acute distress, chronically ill-appearing. LUNGS: Clear to auscultation bilaterally. No wheezes or crackles. CARDIOVASCULAR: Normal rate, regular rhythm. A 3/6 systolic murmur. ABDOMEN: Soft. EXTREMITIES: No edema. CARDIAC MEDICATIONS 1. Amiodarone 400 mg p.o. daily. 2. Metoprolol tartrate 5 mg IV q.6 h. 3. Simvastatin 10 mg p.o. nightly. LABS: WBC 8.25, hemoglobin 9.8, hematocrit 30.1, platelets 259. Sodium 148, potassium 3.2, chloride 120, CO2 20, BUN 50, creatinine 1.39. Telemetry: Normal sinus rhythm, PACs IMPRESSION 1. Sustained ventricular tachycardia. 2. Dysphagia on intravenous total parenteral nutrition. 3. Acute anemia, now stable. 4. Systemic inflammatory response syndrome criteria with fever and leukocytosis. 5. Mild aortic valve stenosis. 6. Preserved left ventricular systolic function. 7. Right hip fracture managed conservatively. 8. Diabetes mellitus. 9. Hypertension. 10. Hyperlipidemia. 11. Dementia. RECOMMENDATIONS: Nuclear stress test without evidence of ischemia with normal systolic function. Change to p.o. beta lionel as PEG is now in place. Continue amiodarone. Antibiotics per primary service. Thank you for this consult. We will continue to follow. Job#: [id number] RONNY RODRIGUEZ
[2017-06-25] MEDS: MICAFUNGIN SODIUM 100 ML IV SCH (17:11)
[2017-06-25] MEDS: METOPROLOL TARTRATE 25 MG TAB PO SCH (17:16)
[2017-06-25] MEDS: BALSAM PERU/CASTOR OIL 60 GM OINT...G. TP SCH (17:16)
[2017-06-25] MEDS: SIMVASTATIN 20 MG TAB PO SCH (21:00)
[2017-06-26] VITALS: BP 158/71
[2017-06-26] MEDS: METOPROLOL TARTRATE 25 MG TAB PO SCH ×3 (00:30→12:00)
[2017-06-26 00:38] VITALS: BP 158/71
[2017-06-26 04:00] VITALS: BP 171/74
[2017-06-26 05:34] LABS: BASOPHILS % 0.2 % (0.0-1.0); EOSINOPHILS # (AUTO) 0.3 (0.0-0.4); EOSINOPHILS % 3.1 % (0.0-6.0); HEMATOCRIT 30.7 % (38.2-49.6); HEMOGLOBIN 9.8 g/dL (14.0-18.0); LYMPHOCYTES # (AUTO) 1.5 (1.0-3.2); LYMPHOCYTES % 17.2 % (18.0-39.1); MEAN CORPUSCULAR HEMOGLOBIN 28.8 pg (28-32); MEAN CORPUSCULAR HGB CONC 31.9 g/dL (31-35); MEAN CORPUSCULAR VOLUME 90.3 fL (81-99); MONOCYTES # (AUTO) 0.5 (0.2-0.8); MONOCYTES % 6.2 % (4.4-11.3); NEUTROPHILS # (AUTO) 6.2 (2.1-6.9); NEUTROPHILS % 72.7 % (38.7-80.0); PLATELET COUNT 243 x10e3/uL (140-360); RED CELL DISTRIBUTION WIDTH 16.5 % (11.7-14.4)
[2017-06-26] MEDS: METRONIDAZOLE 500MG/NS 100ML 100 ML IV SCH ×2 (05:51→13:48)
[2017-06-26 05:54] LABS: ANION GAP 11.4 mmol/L (8-16); CALCIUM 8.3 mg/dL (8.4-10.2); CREATININE, SERUM 1.21 mg/dL (0.72-1.25); MAGNESIUM 1.6 MG/DL (1.3-2.1); POTASSIUM 3.4 mmol/L (3.5-5.1)
[2017-06-26] MEDS: INSULIN LISPRO 100 UNIT/1 ML 3ML VIAL SQ SCH ×3 (06:00→12:00)
[2017-06-26] MEDS: DEXTROSE 5% IV SCH (06:02)
[2017-06-26] MEDS: SODIUM BICARBONATE 8.4% IV SCH (06:02)
[2017-06-26 08:39] VITALS: BP 176/79
[2017-06-26] MEDS: BALSAM PERU/CASTOR OIL 60 GM OINT...G. TP SCH (09:00)
[2017-06-26] MEDS: INSULIN DETEMIR 100 UNIT/ML PEN SQ SCH (09:00)
[2017-06-26] MEDS: AMIODARONE HCL 200 MG TAB PO SCH (09:00)
[2017-06-26] MEDS: DORZOLAMIDE/TIMOLOL (OPTH SOL) 10 ML DRPETTE OP SCH (09:00)
[2017-06-26] MEDS: CEFEPIME HCL 1 GM VIAL IV SCH (09:00)
[2017-06-26] MEDS: [UNRECOGNIZED DRUG - OTHER] PO SCH (09:00)
[2017-06-26 12:37] VITALS: BP 162/74
[2017-06-26] MEDS: CLONIDINE HCL 0.2 MG/24 HR 1 EA PATCH TOP SCH (13:30)
--- NOTE | 2017-06-26 16:09 | Progress Note ---
DATE: June 26, 2017 CARDIOLOGY PROGRESS NOTE SUBJECTIVE: The patient is somnolent. He does not respond. OBJECTIVE VITAL SIGNS: Temperature 97 degrees, pulse 96, respiratory rate 17, blood pressure 176/79, oxygen saturation 96% on room air. GENERAL: Elderly man in no acute distress, chronically ill-appearing and not responsive. LUNGS: Clear to auscultation bilaterally. No wheezes or crackles. CARDIOVASCULAR: Normal rate, regular rhythm. A 3/6 systolic murmur. ABDOMEN: Soft. EXTREMITIES: No edema. CARDIAC MEDICATIONS 1. Amiodarone 400 mg p.o. daily. 2. Metoprolol tartrate 25 mg IV q.6 h. 3. Simvastatin 10 mg p.o. nightly. LABS: WBC 8.5, hemoglobin 9.8, hematocrit 30.7, platelets 243,000, sodium 150, potassium 3.4, chloride 121, CO2 of 21, BUN 46, creatinine 1.26. TELEMETRY: Normal sinus rhythm. IMPRESSION 1. Sustained ventricular tachycardia. 2. Dysphagia on intravenous total parenteral nutrition. 3. Acute anemia, now stable. 4. Systemic inflammatory response syndrome criteria with fever and leukocytosis. 5. Mild aortic valve stenosis. 6. Preserved left ventricular systolic function. 7. Right hip fracture managed conservatively. 8. Diabetes mellitus. 9. Hypertension. 10. Hyperlipidemia. 11. Dementia. RECOMMENDATIONS: Nuclear stress test without evidence of ischemia with normal systolic function. The patient has been started on p.o. beta blockade. Continue amiodarone. Antibiotics per primary service. Thank you for this consult. We will continue to follow. Job#: [id number]
--- NOTE | 2017-06-26 20:17 | Progress Note ---
DATE: June 26, 2017 SUBJECTIVE: The patient was seen and examined at bedside. Continued to be somnolent. OBJECTIVE VITAL SIGNS: Reviewed as per electronic medical record. HEENT: Head atraumatic and normocephalic. NECK: Supple. CVS: S1, S2 audible. RESPIRATORY: Decreased bilateral air entry. ABDOMEN: Positive bowel sounds. EXTREMITIES: Positive edema. NEURO: Confused. LABORATORY DATA: Reviewed per electronic medical record. ASSESSMENT 1. Anemia. 2. Sepsis. 3. Thrombocytopenia, improved. PLAN: Will closely monitor for now. The patient already had blood transfusion with improved counts. No further hematologic intervention at this point. Job#: [id number]
[2017-06-27] MEDS ORDERED: ZOFRAN ODT4 MG (17:25)
[2017-06-27] MEDS ORDERED: CEFEPIME-D1 GM/50 ML IVP (17:25)
[2017-06-27] MEDS ORDERED: CLONIDINE HCL0.2 MG PO (17:25)
[2017-06-27] MEDS ORDERED: FLAGYL250 MG PO (17:25)
[2017-06-27] MEDS ORDERED: ACETAMINOPHEN650 M1 PEG (17:25)
== END 2017-06-26 15:46 | DRG 535 ==
LOC: ER 11:01 → ERHOLD 12:49 → MED/SURG 16:27 → ER 16:27 → ICU 06-11 05:20 → MED/SURG2 06-18 12:39 → ICU 06-22 19:43 → IMCU 06-23 12:16 → MED/SURG3 06-25 10:56
PROVIDERS: ADMIT Internal Medicine; ATTEND Internal Medicine
PROC: 5A1955Z Respiratory Ventilation, Greater than 96 Consecutive Hours (ICD-10-PCS; principal; 2017-06-11)
PROC: 0BH17EZ Insertion of Endotracheal Airway into Trachea, Via Natural or Artificial Opening (ICD-10-PCS; 2017-06-11)
PROC: 02HV33Z Insertion of Infusion Device into Superior Vena Cava, Percutaneous Approach (ICD-10-PCS; 2017-06-11)
PROC: 02HV33Z Insertion of Infusion Device into Superior Vena Cava, Percutaneous Approach (ICD-10-PCS; 2017-06-11)
PROC: 3E043XZ Introduction of Vasopressor into Central Vein, Percutaneous Approach (ICD-10-PCS; 2017-06-11)
PROC: 30243N1 Transfusion of Nonautologous Red Blood Cells into Central Vein, Percutaneous Approach (ICD-10-PCS; 2017-06-11)
PROC: 5A1D70Z Performance of Urinary Filtration, Intermittent, Less than 6 Hours Per Day (ICD-10-PCS; 2017-06-11)
PROC: 0DJ08ZZ Inspection of Upper Intestinal Tract, Via Natural or Artificial Opening Endoscopic (ICD-10-PCS; 2017-06-12)
PROC: 3E0436Z Introduction of Nutritional Substance into Central Vein, Percutaneous Approach (ICD-10-PCS; 2017-06-22)
PROC: 0DH64UZ Insertion of Feeding Device into Stomach, Percutaneous Endoscopic Approach (ICD-10-PCS; 2017-06-24)
DX: S72.141A Displaced intertrochanteric fracture of right femur, initial encounter for closed fracture (principal); J69.0 Pneumonitis due to inhalation of food and vomit; J96.00 Acute respiratory failure, unspecified whether with hypoxia or hypercapnia; R65.21 Severe sepsis with septic shock; N17.0 Acute kidney failure with tubular necrosis; A41.9 Sepsis, unspecified organism; I47.2 Ventricular tachycardia; B49 Unspecified mycosis; K22.11 Ulcer of esophagus with bleeding; I69.951 Hemiplegia and hemiparesis following unspecified cerebrovascular disease affecting right dominant side; K56.7 Ileus, unspecified; N18.3 Chronic kidney disease, stage 3 (moderate); W18.30XA Fall on same level, unspecified, initial encounter; Y92.129 Unspecified place in nursing home as the place of occurrence of the external cause; R53.81 Other malaise; E11.22 Type 2 diabetes mellitus with diabetic chronic kidney disease; I12.9 Hypertensive chronic kidney disease with stage 1 through stage 4 chronic kidney disease, or unspecified chronic kidney disease; Z79.4 Long term (current) use of insulin; F03.90 Unspecified dementia, unspecified severity, without behavioral disturbance, psychotic disturbance, mood disturbance, and anxiety; E78.5 Hyperlipidemia, unspecified; R13.12 Dysphagia, oropharyngeal phase; Z78.1 Physical restraint status; K21.0 Gastro-esophageal reflux disease with esophagitis; K29.70 Gastritis, unspecified, without bleeding; K29.80 Duodenitis without bleeding; D63.1 Anemia in chronic kidney disease; D69.6 Thrombocytopenia, unspecified; I35.0 Nonrheumatic aortic (valve) stenosis; Z79.82 Long term (current) use of aspirin; Z79.02 Long term (current) use of antithrombotics/antiplatelets
CPT/HCPCS: 31500; 31720; 36415; 36430; 36556; 36600; 43235; 71010; 74000; 74230; 74470; 76705; 76937; 78452; 80048; 80053; 80076; 80202; 81001; 82270; 82550; 82553; 82607; 82728; 82746; 82805; 82948; 83540; 83605; 83735; 84100; 84466; 84484; 85025; 85045; 85379; 85384; 85610; 85730; 86704; 86803; 86850; 86900; 86920; 87040; 87071; 87086; 87205; 87340; 90962; 92950; 93005; 93017; 93306; 94002; 94003; 94640; 96360; 96365; 96372; 96374; 96376; 97139; 99284; A9502; C1751; J0171; J0360; J0610; J0692; J1100; J1200; J1644; J1650; J1940; J1956; J2001; J2185; J2248; J2250; J2270; J2370; J2405; J2543; J3370; J3480; J7030; J7040; J7050; J7070; J7799; P9016

== ENCOUNTER 2017-06-27 10:25 | Inpatient (IN) | payer MEDICARE ==
[~2017-06-27] VITALS: Ht 170.2 cm; Wt 73.0 kg
[~2017-06-27 10:25] MED LIST changes: +AMIODARONE HCL200 MG PO; +BUDESONIDE0.5 MG/2 M NEB; +DUONEB NEB; +ECOTRIN325 MG PO; +EFFER-K 20 MEQ20 MEQ PO; +FAMOTIDINE20 MG PO; +FLORASTOR250 MG PO; +HEPARIN SO5000 UNIT/ SC; +IMODIUM2 MG PO; +LANTUS 3ML100 UNITS/ SC; +LASIX40 MG PO; +LOPRESSOR25 MG PO; +MIRALAX17 GM PO; +NOVOLOG100 UNIT/1; +PRAVASTATIN SOD20 MG PO; +ZOSYN 3.373.375 GM/5 IVP
[2017-06-27] MEDS ORDERED: SODIUM CHLORIDE 0.9% 1000ML 1,000 ML IV STA ×2 (10:36→10:40)
[2017-06-27] MEDS ORDERED: SODIUM CHLORIDE 0.9% 1000ML 1,000 ML ONE (10:42)
[2017-06-27] MEDS ORDERED: ACETAMINOPHEN 1000 MG/100 ML 100 ML IV ONE (10:43)
[2017-06-27] MEDS ORDERED: ACETAMINOPHEN 1000 MG/100 ML IV STA (10:59)
[2017-06-27 11:05] LABS: BASOPHILS % 0.3 % (0.0-1.0); HEMATOCRIT 36.9 % (38.2-49.6); HEMOGLOBIN 11.7 g/dL (14.0-18.0); LYMPHOCYTES # (AUTO) 0.9 (1.0-3.2); LYMPHOCYTES % 14.2 % (18.0-39.1); MEAN CORPUSCULAR HEMOGLOBIN 28.7 pg (28-32); MEAN CORPUSCULAR HGB CONC 31.7 g/dL (31-35); MEAN CORPUSCULAR VOLUME 90.7 fL (81-99); MONOCYTES # (AUTO) 0.5 (0.2-0.8); PLATELET COUNT 311 x10e3/uL (140-360); RED BLOOD COUNT 4.07 x10e6/uL (4.3-5.7); RED CELL DISTRIBUTION WIDTH 16.3 % (11.7-14.4)
[2017-06-27] MEDS ORDERED: PIPER-TAZ 3.375 GM 50 ML IV ONE (11:15)
[2017-06-27 11:16] LABS: INR 1.45; PROTHROMBIN TIME 18.4 seconds (11.9-14.5)
[2017-06-27 11:17] LABS: PARTIAL THROMBOPLASTIN TIME 47.7 seconds (23.8-35.5)
[2017-06-27 11:25] LABS: ALBUMIN 1.7 g/dL (3.5-5.0); ALBUMIN/GLOBULIN RATIO 0.3 (0.8-2.0); ANION GAP 15.3 mmol/L (8-16); CALCIUM 8.4 mg/dL (8.4-10.2); CREATININE, SERUM 1.78 mg/dL (0.72-1.25); POTASSIUM 4.3 mmol/L (3.5-5.1)
[2017-06-27] MEDS ORDERED: ACETAMINOPHEN 1000 MG/100 ML IV ONE (11:30)
[2017-06-27 11:35] LABS: LYMPHOCYTES % (MANUAL) 16 % (19-48); MONOCYTES % (MANUAL) 6 % (3.4-9.0); NEUTROPHILS % (MANUAL) 76 % (40-74); PLATELET ESTIMATE ADEQUATE; PLATELET MORPHOLOGY COMMENT NORMAL; RBC MORPHOLOGY COMMENT NORMAL
--- NOTE | 2017-06-27 11:38 | Diagnostic Imaging Report ---
EXAMINATION: Chest, CHEST SINGLE (PORTABLE) INDICATION: Chest pain COMPARISON: Portable chest 06/20/2017 FINDINGS: LINES: Right internal jugular temporary central venous catheter with tip projecting over the expected region of the superior vena cava. Heart: Normal cardiac silhouette. Vascular: The pulmonary vasculature is within normal limits. Atherosclerotic calcifications of the aortic arch. Mediastinum: No mediastinal, hilar, or axillary mass or lymphadenopathy. Lungs: No parenchymal mass. Airspace opacity in the left lung base. Pleura: Moderate left pleural effusion. No pneumothorax. Bones: No acute osseous abnormality. Degenerative changes of the thoracic spine. Soft tissues: Normal. Impression: Airspace opacity in the left lung base may represent a developing pneumonia. Moderate left pleural effusion. Signed by: Dr. Alec More M.D. on 06/27/2017 11:35 AM
[2017-06-27 11:56] LABS: KETONES,URINE NEGATIVE (NEGATIVE); LEUKOCYTE ESTERASE ,URINE 2+ (NEGATIVE); NITRITE,URINE NEGATIVE (NEGATIVE); URINE UROBILINOGEN 0.2 mg/dL (0.2 - 1)
[2017-06-27 11:58] LABS: BILIRUBIN,URINE 1+ (NEGATIVE); COLOR,URINE AMBER (YELLOW); PROTEIN,URINE DIPSTICK 2+ (NEGATIVE)
[2017-06-27 11:59] LABS: CREATINE KINASE MB 0.5 ng/mL (0.00-5.00); TROPONIN I 0.053 ng/mL (0-0.300)
[2017-06-27 12:02] LABS: CLARITY,URINE CLOUDY (CLEAR); RBC,URINE >50 /HPF (0-5); WBC,URINE (MAN) >50 /HPF (0-5)
[2017-06-27 12:03] LABS: BACTERIA,URINE MODERATE /HPF; EPITHELIAL CELLS,URINE FEW /LPF; MUCUS,URINE MODERATE (RARE)
[2017-06-27 12:04] LABS: YEAST,URINE FEW
[2017-06-27 12:11] LABS: ABG PCO2 25 mmHg (41-51); ABG PH 7.42 (7.31-7.41)
[2017-06-27 12:12] LABS: ABG BASE EXCESS 16.4 mmol/L (-2 - 3); ABG HCO3 -8 mmol/L (23-28); ABG PO2 183 mmHg (80-105)
[2017-06-27] MEDS ORDERED: VANCOMYCIN HCL 1GM/NS 250 ML BAG IV SCH (12:15)
[2017-06-27] MEDS: SODIUM CHLORIDE 0.9% 1000ML 1,000 ML IV SCH ×2 (13:22→22:03)
[2017-06-27] MEDS: VANCOMYCIN 1GM/NS 250 ML 250 ML IV SCH (13:22)
[2017-06-27] MEDS: ENOXAPARIN INJ 80 MG/0.8 ML SYR SC SCH (13:44)
[2017-06-27] MEDS ORDERED: FLAGYL250 MG PO (17:25)
[2017-06-27] MEDS ORDERED: CEFEPIME-D1 GM/50 ML IVP (17:25)
[2017-06-27] MEDS ORDERED: CLONIDINE HCL0.2 MG PO (17:25)
[2017-06-27] MEDS ORDERED: ZOFRAN ODT4 MG (17:25)
[2017-06-27] MEDS ORDERED: ACETAMINOPHEN650 M1 PEG (17:25)
--- NOTE | 2017-06-27 18:11 | Diagnostic Imaging Report ---
EXAM: CT Abdomen and Pelvis WITH contrast INDICATION: Abdominal pain COMPARISON: None. TECHNIQUE: Abdomen and pelvis were scanned utilizing a multidetector helical scanner from the lung base to the pubic symphysis after administration of contrast. Coronal and sagittal reformations were obtained. Protocol: General survey IV CONTRAST: 100 mL of Isovue 370 ORAL CONTRAST: None COMPLICATIONS: None RADIATION DOSE: Total Exam DLP: 692.1 mGy*cm. CTDIvol has been reviewed. It is below the limits set by the Radiation Protocol Committee (RPC). FINDINGS: LINES: None. Lower thorax: Airspace opacity in the left lower lobe. No pneumothorax. Small bilateral pleural effusions. Liver: No focal mass. No hepatomegaly. Normal parenchyma. The hepatic and portal veins are patent. Gallbladder: Gallbladder hydrops with pericholecystic inflammatory changes. Biliary tree: No intrahepatic duct dilation. No extrahepatic duct dilation. Spleen: No splenomegaly. No focal mass. Pancreas: Normal parenchymal enhancement. No focal mass. Normal pancreatic duct. No peripancreatic inflammatory changes. Kidneys: No obstructing calculi. No hydronephrosis. No solid enhancing mass. No cysts. No perinephric soft tissue inflammatory changes. Adrenal glands: No adrenal nodules.. Bladder: Harvey catheter is present in a decompressed urinary bladder. Pelvic organs: Normal. GI: No bowel wall thickening. No air-fluid levels. The stomach and small bowel are normal. The colon is normal. Normal appendix. A moderate amount of retained feces limits intraluminal evaluation of the colon. Peritoneum/retroperitoneum: No pneumoperitoneum. No ascites. No drainable fluid collection. Lymph nodes: No lymphadenopathy. Minimal free fluid is present in the pelvis. Small fluid-containing left inguinal hernia. Vessels: The abdominal aorta and iliac vessels are patent. The celiac, superior mesenteric, and inferior mesenteric arteries are patent. Single bilateral renal arteries are patent. Atherosclerotic calcifications. Bones: Comminuted fracture of the proximal right femur with involvement of the greater and lesser trochanters. No dislocation. Degenerative changes of the lumbar spine. . Soft tissues: No focal abnormality. IMPRESSION: Gallbladder hydrops with acute cholecystitis. Comminuted intertrochanteric fracture of the right femur. Airspace opacity in the left lower lobe may represent a developing pneumonia. Small bilateral pleural effusions. Signed by: Dr. Alec More M.D. on 06/27/2017 6:08 PM
[2017-06-27] MEDS ORDERED: SODIUM CHLORIDE 0.9% 50ML 50 ML ONE (18:23)
[2017-06-27] MEDS ORDERED: IOPAMIDOL 370 MG/ML 200 ML INFUS..BTL INJ ONE (18:24)
[2017-06-27] MEDS ORDERED: ENOXAPARIN INJ 80 MG/0.8 ML SYR SC SCH (21:00)
[2017-06-28] MEDS: ENOXAPARIN INJ 80 MG/0.8 ML SYR SC SCH ×2 (02:14→15:00)
[2017-06-28] MEDS: SODIUM CHLORIDE 0.9% 1000ML 1,000 ML IV SCH (04:33)
[2017-06-28] MEDS ORDERED: SODIUM CHLORIDE 0.45% 1,000 ML IV ONE (09:00)
[2017-06-28] MEDS ORDERED: HEPARIN SOD (PORCINE) 5,000 UNIT/ML VIAL SC SCH (09:00)
[2017-06-28] MEDS: LEVOFLOXACIN 500MG/D5W 100ML 100 ML IV SCH (09:10)
[2017-06-28] MEDS: ACETAMINOPHEN 325 MG/10 ML UDC PEG SCH ×4 (10:15→22:38)
[2017-06-28] MEDS ORDERED: MEROPENEM 1GM 100 ML IV SCH (12:45)
[2017-06-28] MEDS ORDERED: VANCOMYCIN 1GM/NS 250 ML 250 ML IV ONE (13:30)
[2017-06-28] MEDS: ONDANSETRON HCL 4 MG ORAL DISINTEGRATING TAB PEG SCH ×2 (13:30→17:58)
[2017-06-28] MEDS: MEROPENEM 1 GM VIAL IV SCH (13:30)
--- NOTE | 2017-06-28 13:39 | History and Physical ---
CHIEF COMPLAINT: Confusion and shortness of breath. HISTORY OF PRESENT ILLNESS: This is a 69-year-old man recently discharged earlier this month after management of a fall with right femur fracture. Now, the patient was sent to the hospital due to confusion and worsening shortness of breath. He has been started on BiPAP support here at 40% FIO2. His chest x-ray revealed left lung base pneumonia. CT scan of the abdomen revealed acute cholecystitis and bilateral pleural effusion. He is admitted for further evaluation and management. PAST MEDICAL HISTORY: Diabetes mellitus, hypertension, hyperlipidemia, anemia, gout, dementia, chronic kidney disease, stage unknown, stroke. PAST SURGICAL HISTORY: Unknown. ALLERGIES: PER ELECTRONIC MEDICAL RECORD. FAMILY HISTORY/SOCIAL HISTORY: Patient is . No alcohol, illicits or cigarettes. MEDICATIONS: Per electronic medical record. REVIEW OF SYSTEMS: Unobtainable. PHYSICAL EXAMINATION VITAL SIGNS: Have been reviewed. GENERAL: A tired-appearing man resting in bed. HEENT: Anicteric. His left eye is opaque. He has BiPAP mask in place. He has dry mucous membranes. CARDIOVASCULAR: Normal S1 and S2. LUNGS: Reduced breath sounds throughout. ABDOMEN: Soft. Mild tenderness in the right upper quadrant. : He has a Harvey in place. EXTREMITIES: He has trace edema. He has multiple decubitus ulcers in various stages of healing. SKIN: Dry. PSYCHIATRIC: Flat affect. NEUROLOGICAL: Tracks with his eyes, but not interactive. LABS: Reviewed. MEDICATIONS: Reviewed. ASSESSMENT AND PLAN: This is a 71-year-old man with: 1. Acute respiratory failure: He has BiPAP mask in place. Will consult pulmonary services to assist in management. 2. Healthcare-associated pneumonia: Patient is on vancomycin. Will add Levaquin. Will also obtain a sputum culture. 3. Hypernatremia: Will rehydrate the patient and reassess. 4. Acute cholecystitis: Surgery consultation and n.p.o. 5. Acute kidney injury in the setting of possibly chronic kidney disease, stage 3: Will rehydrate and reassess. 6. Urinary tract infection: Continue antibiotics as described above. Follow up cultures. 7. Bilateral pleural effusion: Will give some fluids, but avoid overhydration. 8. Diabetes mellitus: Will obtain hemoglobin A1c and lipid panel. 9. Normocytic anemia, mild: Will follow. 10. Hyperbilirubinemia: Will reassess after cholecystectomy. 11. Sepsis with fever of 103.7 and tachycardia and tachypnea: Respiratory rate is high at 50. Antibiotics will cover. Follow up cultures. 12. Prophylaxis: Will use heparin and Pepcid. 13. Disposition: Monitor closely. Pulmonary consultation and surgical consultation. Job#: [id number] STEPHANIE
[2017-06-28] MEDS: VANCOMYCIN 1GM/NS 250 ML 250 ML IV SCH (13:49)
--- NOTE | 2017-06-28 17:10 | Consultation ---
DATE OF CONSULTATION: June 28, 2017 SURGICAL CONSULTATION CHIEF COMPLAINT: Is shortness of breath and abdominal discomfort. HISTORY OF PRESENT ILLNESS: The patient is a 71-year-old male with multiple medical history including dementia and recurrent pneumonia, who admitted with some respiratory distress and also complaining of some abdominal pain. No history of vomiting. PAST MEDICAL HISTORY: Is positive for hypertension, diabetes, hyperlipidemia, coronary artery disease, history of TIA and dementia, chronic renal insufficiency, history of a right hip fracture without surgical intervention. SURGICAL HISTORY: Positive for PEG tube placement. ALLERGIES: HE HAS NO DRUG ALLERGIES. SOCIAL HABITS: No history of smoking or alcohol abuse. REVIEW OF SYSTEMS: Not obtainable. PHYSICAL EXAMINATION: VITALS: Stable. He has no fevers. Patient is awake, responsive with nodding, but orientation is questionable. HEENT: Sclerae are nonicteric. NECK: Supple. LUNGS: Bilateral rhonchi. HEART: Regular rate and rhythm, no murmurs. ABDOMEN: Soft. There is some guarding tenderness in the right upper quadrant. No rebound. EXTREMITIES: Without cyanosis, edema. White cell count 6.5, hemoglobin of 11.7, platelet count of 311. Lactic acid 22. INR 1.4. Creatinine 1.7. Bilirubin of 1.5 with [address] phosphatase [address] CT of the abdomen: Gallbladder distention with thickened wall. Bilateral pleural effusions. ASSESSMENT: Probable cholecystitis in patient with a recurrent history of pneumonia and multiple comorbidities. PLAN: IV antibiotic initiated. Preferably cholecystectomy if risks not prohibitive. Otherwise we may proceed with cholecystostomy tube drainage. Thank you for the consultation. Job#: [id number] EV
--- NOTE | 2017-06-28 22:06 | Consultation ---
DATE OF CONSULTATION: PULMONARY CONSULTATION Patient is known to me from previous admission here. He was sent from [facility] because of hypoxia and fever. HISTORY OF PRESENT ILLNESS: Mr. Frederick is a 71-year-old male who was recently was discharged on June 26 from [facility]. He was admitted with septic shock, dysphagia, shortness of breath. Patient remained on ventilator for almost 8 to 10 days and was extubated for aspiration pneumonia. He was in septic shock and renal failure, gradually improved. Patient underwent a modified barium swallow and speech evaluation, and he had severe dysphagia. A PEG tube was placed. He also developed fungemia and sepsis. ID was consulted, and Dr. Palacios continued the patient on antibiotic. Patient has history of a right hip fracture and never had any surgery because he is deemed to be a very high risk surgical candidate, and patient is being managed conservatively. He is awake and alert. He has confusion. He is currently on BiPAP, saturating well. He is on 30% BiPAP. When he came into the emergency room, he had a temperature of 103.7. He underwent a CT abdomen and pelvis which showed gallbladder hydrops with acute cholecystitis and comminuted intertrochanteric fracture of the right femur, also shows left lower lobe pneumonia. REVIEW OF SYSTEMS: Unable to get a detailed review of systems. Patient has mild to moderate dementia as well. However, he is complaining of abdominal discomfort, denying any complaints of chest pain, nausea, vomiting. PAST MEDICAL HISTORY: 1. History of a right hip fracture, conservative management. 2. Hypertension. 3. Diabetes. 4. Oropharyngeal dysphagia. Patient has a PEG tube. 5. Recent history of septic shock with fungemia, which was treated. Last culture on the grew out coag-negative staph which was probably contaminant. He is on dialysis and has a dialysis catheter. 6. End-stage renal disease. FAMILY AND SOCIAL HISTORY: He is currently living at [facility]. His is involved in decision-making. PHYSICAL EXAMINATION: VITALS: Temperature 99.1, pulse of 108, blood pressure 143/81, T-max of 103.7. SKIN: Warm and dry. GENERAL APPEARANCE: He is an elderly male, does not appear to be in distress. He is awake and alert, follows command. He is Urdu-speaking only. HEENT: Head atraumatic, normocephalic. Pupils reactive. NECK: Supple. He is on BiPAP. CHEST: Crackles on the bases. HEART: S1 and S2 audible. ABDOMEN: Soft, nontender and nondistended. EXTREMITIES: Muscle wasting. No pedal edema. LABORATORY DATA: White count of 6.5, hemoglobin 11.7, platelets 311. Chemistries: Sodium 149, potassium 4.3, chloride 119, BUN 49, creatinine 1.78. Patient had a blood gas last night with a pH of 7.42, pCO2 of 25, pO2 of 183. CT abdomen/pelvis which showed pneumonia and acute cholecystitis. ASSESSMENT: Mr. Frederick is a 71-year-old male with multiple chronic medical problems, was discharged on the , was treated for septic shock, possible fungemia, urinary tract infection, pneumonia, and was discharged to [facility]. CURRENT PROBLEMS: 1. Left lower lobe pneumonia. 2. Acute cholecystitis. 3. Dementia. 4. History of chronic right hip fracture. Patient is bedbound. 5. Now has a PICC-related deep vein thrombosis in the right upper extremity. 6. Oropharyngeal dysphagia. Patient has PEG tube. PLAN: 1. I will start the patient on IV meropenem and give him a dose of vancomycin. 2. Recommended giving vancomycin after hemodialysis. Nephrology will be consulted for hemodialysis. 3. Surgery consult has been called. Dr. Ambrosio has evaluated patient, possibly will do an cholecystectomy. However, it will be high risk because of patient's condition. Recommend cardiology evaluation. 4. Agree with Lovenox 80 b.i.d. 5. Will take the PICC line out soon. 6. Will try to wean the BiPAP and see if he tolerates a Ventimask or nasal cannula. 7. Critical care time spent 50 minutes. Job#: [id number] EV
[2017-06-28] MEDS: PRAVASTATIN 20 MG TAB PO SCH (22:38)
[2017-06-28] MEDS ORDERED: DEXTROSE 50% SYRINGE 50 ML IV PRN (23:00)
[2017-06-29] MEDS: MEROPENEM 1 GM VIAL IV SCH ×2 (01:35→14:40)
[2017-06-29] MEDS: ONDANSETRON HCL 4 MG ORAL DISINTEGRATING TAB PEG SCH ×4 (01:35→18:48)
[2017-06-29] MEDS: ACETAMINOPHEN 325 MG/10 ML UDC PEG SCH ×6 (01:35→21:45)
[2017-06-29] MEDS: ENOXAPARIN INJ 80 MG/0.8 ML SYR SC SCH ×2 (02:15→14:40)
[2017-06-29 05:11] LABS: BASOPHILS % 0.3 % (0.0-1.0); EOSINOPHILS # (AUTO) 0.1 (0.0-0.4); EOSINOPHILS % 1.6 % (0.0-6.0); HEMATOCRIT 28.5 % (38.2-49.6); HEMOGLOBIN 8.7 g/dL (14.0-18.0); LYMPHOCYTES # (AUTO) 1.2 (1.0-3.2); LYMPHOCYTES % 13.4 % (18.0-39.1); MEAN CORPUSCULAR HEMOGLOBIN 28.8 pg (28-32); MEAN CORPUSCULAR HGB CONC 30.5 g/dL (31-35); MEAN CORPUSCULAR VOLUME 94.4 fL (81-99); MONOCYTES # (AUTO) 0.5 (0.2-0.8); MONOCYTES % 5.4 % (4.4-11.3); NEUTROPHILS # (AUTO) 6.8 (2.1-6.9); NEUTROPHILS % 77.6 % (38.7-80.0); PLATELET COUNT 279 x10e3/uL (140-360); RED BLOOD COUNT 3.02 x10e6/uL (4.3-5.7); RED CELL DISTRIBUTION WIDTH 16.6 % (11.7-14.4)
[2017-06-29 05:25] LABS: ANION GAP 15.1 mmol/L (8-16); CALCIUM 7.5 mg/dL (8.4-10.2); CREATININE, SERUM 1.58 mg/dL (0.72-1.25); POTASSIUM 4.1 mmol/L (3.5-5.1)
[2017-06-29] MEDS ORDERED: DEXTROSE 5% 1,000 ML IV SCH (07:00)
--- NOTE | 2017-06-29 07:28 | Progress Note ---
DATE: June 29, 2017 TIME: 6:30 a.m. OVERNIGHT: Patient is on face mask at 40% FIO2. PHYSICAL EXAMINATION GENERAL: A tired-appearing man resting in bed. HEENT: Eyes are opaque. He has a face mask at 40% in place. CARDIOVASCULAR: Normal S1 and S2. LUNGS: Coarse breath sounds. Some crackles. ABDOMEN: Soft. PEG in place. EXTREMITIES: Multiple stages of decubitus ulcers. He has trace edema. : He has a Harvey in place. SKIN: Dry. PSYCHIATRIC: Flat affect. NEUROLOGICAL: Tracks with his eyes. More alert today. LABS: Reviewed. MEDICATIONS: Reviewed. ASSESSMENT AND PLAN: A 71-year-old man with: 1. Acute respiratory failure: He is on BiPAP now. He is on face mask 40% FIO2. Will diurese the patient today. 2. Healthcare-associated pneumonia: Continue vancomycin and Levaquin. Follow up cultures. 3. Hypernatremia: Will start water flushes at 200 mL q.4 h. via percutaneous endoscopic gastrostomy tube. Will start using percutaneous endoscopic gastrostomy for water flush. Will use D5W at 40 mL an hour and obtain sodium levels every 8 hours. 4. Nutrition: Will start tube feeding. 5. Acute cholecystitis: Surgery on board. Patient is n.p.o. 6. Acute kidney injury in the setting of chronic kidney disease, stage 3: Continue rehydration and reassess. 7. Urinary tract infection: On antibiotics. Follow up cultures. 8. Bilateral pleural effusion: Continue diuretics. 9. Diabetes mellitus: Follow up hemoglobin A1c and lipid panel. Hemoglobin A1c is 5.7, LDL 24 and triglycerides 150. 10. Normocytic anemia. 11. Hyperbilirubinemia: Related to cholecystitis. 12. Severe sepsis with acute kidney injury: Rehydrate and reassess. 13. Prophylaxis: Heparin and Pepcid. 14. Disposition: Consult Dr. Gleason for wound care. Job#: [id number] W[place]
[2017-06-29 07:33] LABS: BAND NEUTROPHILS % (MANUAL) 5 %; EOSINOPHILS % (MANUAL) 1 % (0-7); LYMPHOCYTES % (MANUAL) 14 % (19-48); METAMYELOCYTES % (MANUAL) 1 % (0-0); MONOCYTES % (MANUAL) 4 % (3.4-9.0); MYELOCYTES % (MANUAL) 1 % (0-0); NEUTROPHILS % (MANUAL) 74 % (40-74)
[2017-06-29 07:34] LABS: PLATELET ESTIMATE ADEQUATE
[2017-06-29 07:35] LABS: ANISOCYTOSIS SLIGHT; HYPOCHROMASIA SLIGHT; PLATELET MORPHOLOGY COMMENT FEW LARGE; RBC MORPHOLOGY COMMENT NORMAL
[2017-06-29] MEDS: FUROSEMIDE INJ 10 MG/ML 4 ML VIAL IV SCH ×4 (09:00→21:45)
[2017-06-29] MEDS ORDERED: COLCHICINE 0.6 MG TAB PO SCH (09:00)
[2017-06-29] MEDS: INSULIN REGULAR, HUMAN 100 UNIT/1 ML 3ML VIAL SQ SCH ×4 (09:32→21:00)
[2017-06-29] MEDS: CLOPIDOGREL BISULFATE 75 MG TAB PO SCH (09:33)
[2017-06-29] MEDS: LEVOFLOXACIN 500MG/D5W 100ML 100 ML IV SCH (10:00)
[2017-06-29] MEDS: FAMOTIDINE 20 MG TAB PO SCH (10:25)
[2017-06-29] MEDS: GABAPENTIN 300 MG CAP PO SCH (10:25)
[2017-06-29] MEDS: SACCHAROMYCES BOULARDII 250 MG PO SCH (10:25)
[2017-06-29] MEDS: FENOFIBRATE 48 MG TAB PO SCH (10:25)
[2017-06-29] MEDS: FERROUS SULFATE 325 MG TAB PO SCH (10:25)
[2017-06-29] MEDS: POLYETHYLENE GLYCOL 3350 17 GM PACK PO SCH (10:28)
[2017-06-29] MEDS ORDERED: ACETAMINOPHEN 1000 MG/100 ML 100 ML IV ONE (11:35)
[2017-06-29] MEDS ORDERED: ACETAMINOPHEN 1000 MG/100 ML IV STA (11:38)
[2017-06-29] MEDS: VANCOMYCIN 1GM/NS 250 ML 250 ML IV SCH (14:40)
[2017-06-29] MEDS ORDERED: SODIUM CHLORIDE 0.9% 1000ML 1,000 ML ONE (14:46)
[2017-06-29] MEDS ORDERED: SODIUM CHLORIDE 0.9% 50ML 50 ML ONE (14:47)
[2017-06-29] MEDS ORDERED: DEXTROSE 5% 1,000 ML IV ONE (18:30)
[2017-06-29 19:14] VITALS: BP 171/76
[2017-06-29 19:29] VITALS: BP 171/76
[2017-06-29 20:00] VITALS: BP_SYST 155; BP_SYST 185; BP_DIAS 73; BP_DIAS 75; BP_DIAS 81
[2017-06-29] MEDS: PRAVASTATIN 20 MG TAB PO SCH (21:45)
[2017-06-30] VITALS (10 sets, daily range): BP systolic 139–176; BP diastolic 67–89
[2017-06-30] MEDS: ONDANSETRON HCL 4 MG ORAL DISINTEGRATING TAB PEG SCH ×5 (01:02→22:30)
[2017-06-30] MEDS: MEROPENEM 1 GM VIAL IV SCH ×2 (01:04→14:30)
[2017-06-30] MEDS: ACETAMINOPHEN 325 MG/10 ML UDC PEG SCH ×6 (04:13→22:22)
[2017-06-30] MEDS: ENOXAPARIN INJ 80 MG/0.8 ML SYR SC SCH ×2 (04:14→14:30)
--- NOTE | 2017-06-30 08:40 | Progress Note ---
DATE: June 30, 2017 TIME: 7 a.m. OVERNIGHT: No events. REVIEW OF SYSTEMS: Unobtainable. VITAL SIGNS: Reviewed. PHYSICAL EXAMINATION GENERAL: A tired-appearing man resting in bed. HEENT: Anicteric. His left eye is opaque. He has oxygen support 40% FiO2 mask in place. CARDIOVASCULAR: Normal S1 and S2. LUNGS: Coarse breath sounds. ABDOMEN: Soft. PEG in place. EXTREMITIES: Multiple decubitus ulcers. The lower extremities have trace edema. : Harvey in place. SKIN: Dry. PSYCHIATRIC: Flat affect. NEUROLOGIC: Tracks with his eyes. LABS: Reviewed. MEDICATIONS: Reviewed. ASSESSMENT AND PLAN: A 71-year-old man. 1. Acute respiratory failure. 2. Healthcare-associated pneumonia. 3. Hypernatremia. 4. Dysphagia. 5. Acute cholecystitis. 6. Acute kidney injury in the setting of chronic kidney disease, stage 3. 7. Urinary tract infection. 8. Bilateral pleural effusions. 9. Normocytic anemia. 10. Hyperbilirubinemia. 11. Severe sepsis with acute kidney injury. 12. Right arm deep venous thrombosis. PLAN 1. Continue Lovenox 80 mg twice a day. 2. Continue IV meropenem, IV vancomycin, IV Levaquin. 3. Continue Plavix and Pepcid. 4. Continue fenofibrate. 5. Continue oxygen support with 40% FiO2. 6. Continue local wound care to the lower extremities. 7. Monitor glucose levels. Periods of hypoglycemia. 8. Hypernatremia is improving slowly. Continue free water flushes by PEG tube. 9. Continue nutritional support by PEG tube. 10. C. diff testing is negative. 11. Other cultures remain negative except for the urine culture, which showed yeast. 12. Physical therapy and skilled facility placement. Job#: [id number]
[2017-06-30] MEDS: SACCHAROMYCES BOULARDII 250 MG PO SCH (09:00)
[2017-06-30] MEDS: FERROUS SULFATE 325 MG TAB PO SCH (09:00)
[2017-06-30] MEDS: FENOFIBRATE 48 MG TAB PO SCH (09:00)
[2017-06-30] MEDS: FAMOTIDINE 20 MG TAB PO SCH (09:00)
[2017-06-30] MEDS: GABAPENTIN 300 MG CAP PO SCH (09:00)
[2017-06-30] MEDS: POLYETHYLENE GLYCOL 3350 17 GM PACK PO SCH (09:00)
[2017-06-30] MEDS: FUROSEMIDE INJ 10 MG/ML 4 ML VIAL IV SCH ×2 (09:00→22:00)
[2017-06-30] MEDS: CLOPIDOGREL BISULFATE 75 MG TAB PO SCH (09:00)
--- NOTE | 2017-06-30 10:29 | Consultation ---
DATE OF CONSULTATION: WOUND CONSULTATION Thank you, Dr. Michael, for asking me to see this patient. HISTORY OF PRESENT ILLNESS: A 71-year-old male patient with a history of chronic kidney disease gets dialysis intermittently. Recently hospitalized and discharged to [facility]. Patient was readmitted within 2 days. Patient has multiple ulcers to both lower extremities, extremely deconditioned, diarrhea. Wound consult was called. PAST MEDICAL HISTORY: Hypertension, chronic kidney disease, stage 4 on 5, diabetes mellitus, dysphagia, status post PEG feeding, dementia, stroke, and gout. SURGICAL HISTORY: Dialysis catheter placement. PERSONAL HISTORY: Unknown. MEDICATIONS 1. Lovenox 80 mg subcutaneous q.12 h. 2. 1 g q.12 h. 3. Vancomycin IV q.24 h. 4. Ferrous sulfate 325 mg daily. 5. Colchicine 0.6 mg daily. 6. Plavix 75 mg daily. 7. Cosopt 1 drop b.i.d. ALLERGIES: NONE. PHYSICAL EXAMINATION VITALS: Height 67 inches, weight 172 pounds. Blood pressure 171/76, temperature 97.3. HEENT: Normal. NECK: Normal. LUNGS: Bilateral air entry normal. CV: Normal. ABDOMEN: Soft. PEG tube in place. LOWER EXTREMITIES: Contracted. SKIN: Patient has multiple ulcers involving both feet. On right dorsum of the foot, the patient has pressure necrosis of the skin. Right lateral malleolus, the patient has a wound, unstageable. Right lateral foot, right heel is black and 100% necrotic involving the whole right heel. Left heel with deep tissue injury seen. Left lateral foot and left lateral ankle unstageable wound noted. Also, has necrotic wound on the right lateral leg of the right popliteal fossa. On coccyx area, the patient has a deep tissue injury and 100% black. ASSESSMENT 1. Multiple ulcers, both feet secondary to pressure and peripheral vascular disease. 2. Deep tissue injury to the coccyx. 3. Diarrhea. 4. Severe deconditioning. 5. End-stage renal disease. PLAN: Apply Betadine to the necrotic area on both feet and to the right leg and Mepilex to the coccyx. Consider rectal tube. Patient needs arterial Doppler of the lower extremities to assess the circulation. However, he is a poor candidate for intervention at this time. Will continue treating the wound conservatively. Thank you, Dr. Michael, for asking me to see this patient. Will follow with you. Job#: [id number] RI
[2017-06-30] MEDS: DORZOLAMIDE/TIMOLOL (OPTH SOL) 10 ML DRPETTE OP SCH ×2 (10:30→17:33)
[2017-06-30] MEDS: INSULIN REGULAR, HUMAN 100 UNIT/1 ML 3ML VIAL SQ SCH ×3 (11:30→21:00)
[2017-06-30] MEDS: LEVOFLOXACIN 500MG/D5W 100ML 100 ML IV SCH (12:52)
[2017-06-30] MEDS ORDERED: DEXTROSE 5% 1,000 ML IV ONE (13:00)
[2017-06-30] MEDS: VANCOMYCIN 1GM/NS 250 ML 250 ML IV SCH (14:00)
--- NOTE | 2017-06-30 17:13 | Consultation ---
DATE OF CONSULTATION: June 30, 2017 CARDIOLOGY CONSULTATION REQUESTING PHYSICIAN: Dr. Michael. REASON FOR CONSULTATION: Cardiac evaluation. This is a 71-year-old man who has diabetes mellitus, hypertension, hyperlipidemia, chronic kidney disease, prior CVA and recent admission after a fall with right femur fracture which was managed conservatively during his hospital course. He had sustained ventricular tachycardia for which cardiology was consulted for evaluation including a normal nuclear stress test. An echocardiogram with preserved LV systolic function and mild aortic valve stenosis. He was subsequently discharged to [facility] on the , but then was readmitted on the due to confusion and worsening shortness of breath. He was found to have acute hypoxic respiratory failure requiring BiPAP support, FIO2 of 50% with x-ray revealing a left lung base pneumonia . CT scan revealed acute cholecystitis and bilateral pleural effusions. Cardiology consult is for management of his cardiac condition. Given his dementia, no history can be obtained from the patient. He does not interact in any significant amount. REVIEW OF SYSTEMS: Unable to obtain. PAST MEDICAL HISTORY: 1. Sustained ventricular tachycardia while receiving dialysis. 2. Diabetes mellitus. 3. Hypertension. 4. Hyperlipidemia. 5. Mild aortic valve stenosis with preserved LV systolic function. 6. Dysphagia. 7. Right hip fracture managed conservatively. 8. Dementia. ALLERGIES: PLEASE SEE EMR. MEDICATIONS: Please see medication list. SOCIAL HISTORY: No alcohol, tobacco or drugs. FAMILY HISTORY: Unable to obtain. PHYSICAL EXAMINATION VITAL SIGNS: Temperature 98 degrees, pulse 98, respiratory rate 20, blood pressure 144/80, oxygen saturation 100% on 50% FIO2. GENERAL: An elderly man who appears older than his stated age, chronically ill appearing, awake, but not responsive. HEENT: Normocephalic, atraumatic. NECK: Supple. No thyromegaly or cervical lymphadenopathy. No carotid bruits. LUNGS: Clear to auscultation bilaterally. No wheezes or crackles. CARDIOVASCULAR: Normal rate, regular rhythm. No murmurs. Normal S1 and S2. ABDOMEN: Soft. PEG tube is in place. EXTREMITIES: Multiple decubitus ulcers are noted with trace edema. NEUROLOGIC: Unable to assess secondary to baseline dementia. LABORATORY DATA: Sodium 153. CT of the abdomen and pelvis: Gallbladder hydrops with cholecystitis. Comminuted intertrochanteric fracture of the right femur. Airspace opacity in the left lower lobe may represent developing pneumonia. Small bilateral pleural effusions. Acute total occlusive vein thrombosis in the right basilic vein. EKG: Sinus tachycardia, otherwise normal ECG. IMPRESSION 1. Acute hypoxic respiratory failure. 2. Healthcare associated pneumonia. 3. Hypernatremia. 4. Acute cholecystitis. 5. Sustained ventricular tachycardia during prior admission. 6. Diabetes mellitus. 7. Hypertension. 8. Hyperlipidemia. 9. Dementia. RECOMMENDATIONS: Agree with anticoagulation for his right upper extremity superficial vein thrombosis. Continue current cardiac medications. Add aspirin. Resume amiodarone and p.o. beta blockade. Thank you for this consult. We will continue to follow. Job#: [id number] GH MICHAEL
--- NOTE | 2017-06-30 17:49 | Consultation ---
DATE OF CONSULTATION: June 30, 2017 REQUESTING PHYSICIAN: Dr. Rehan Michael. REASON FOR CONSULTATION: Elevated creatinine. Thank you for allowing us to participate in Mr. Frederick's care. This is a 71-year-old male apparently with a history of possibly acute kidney injury. There are some unclear stories that he might of had brief dialysis, according to the , who is also somewhat of a poor historian. He had dialysis briefly, and it has been a month since then. He was recovering from a right femur fracture, which was treated conservatively without surgery due to multiple comorbidities. He came in with worsening confusion and dyspnea. He remained swollen, according to staff, and also found to have cholecystitis. He ended up with a cholecystostomy drain. He is on IV Lasix. Chest x-ray showing possible developing pneumonia. Here his creatinine is 1.58. K of 4.1. Sodium was 153. Serum CO2 was 16. UA showed that he does have a chronic Harvey catheter showing some granular casts. Abdominal and pelvic CT which was done with IV contrast did not show any hydronephrosis. REVIEW OF SYSTEMS: Unable to be obtained as he is nonverbal. SOCIAL HISTORY: Currently does not smoke or drinking alcohol. FAMILY HISTORY: Unable to obtain. MEDICATIONS: Please see list. PHYSICAL EXAMINATION GENERAL: Laying in bed in no distress. He appears fairly contracted. SKIN: Multiple sores. VITAL SIGNS: Temperature 98, pulse 100 and regular, blood pressure 144/80. HEENT: Face mask in place. NECK: Unable to see any neck veins. CHEST: Coarse crackles bilaterally. EXTREMITIES: Edema . NEUROLOGIC: Nonverbal. Eyes are open. CARDIAC: Normal heart tones, sounds regular at this time. ABDOMEN: Cholecystostomy tube. LABORATORY DATA: Noted and UA shows cloudy urine with some granular casts. Sodium 153. K of 4.1. Chloride 126. Bicarb 16. Creatinine 1.6. BUN 46. were depressed 2 weeks ago. Of note, he recently had acute kidney injury with 3.660 creatinine. PLAN: From a renal standpoint, keep on IV Lasix for the fluid overload. Add Bicitra via feeding tube. Please check vancomycin levels. Increase the Lasix. His input, output is negative 1400, so the current dose of Lasix may be adequate. Will follow along. Overall prognosis appears poor given his multiple comorbidities, nonverbal state. Would not be a good dialysis candidate if renal function got worse. There is some concern that he may have some ongoing tubular necrosis given the casts in the urine. Will follow along. Serial chemistries. Job#: [id number] AMANDA
[2017-06-30] MEDS ORDERED: CITRIC ACID/SODIUM CITRATE 30 ML UDC PO ONE (21:00)
[2017-06-30] MEDS: SIMVASTATIN 20 MG TAB PO SCH (22:00)
[2017-07-01] VITALS (7 sets, daily range): BP systolic 134–192; BP diastolic 67–92
[2017-07-01] MEDS: ENOXAPARIN INJ 80 MG/0.8 ML SYR SC SCH ×2 (02:22→14:12)
[2017-07-01] MEDS: MEROPENEM 1 GM VIAL IV SCH ×2 (02:22→14:12)
[2017-07-01] MEDS: ACETAMINOPHEN 325 MG/10 ML UDC PEG SCH ×6 (02:30→22:06)
[2017-07-01 06:25] LABS: ANION GAP 11.9 mmol/L (8-16); CALCIUM 7.7 mg/dL (8.4-10.2); CREATININE, SERUM 1.33 mg/dL (0.72-1.25); MAGNESIUM 1.4 MG/DL (1.3-2.1); PHOSPHORUS 2.6 MG/DL (2.3-4.7); POTASSIUM 3.9 mmol/L (3.5-5.1)
[2017-07-01] MEDS: ONDANSETRON HCL 4 MG ORAL DISINTEGRATING TAB PEG SCH ×3 (06:50→17:12)
[2017-07-01] MEDS: INSULIN REGULAR, HUMAN 100 UNIT/1 ML 3ML VIAL SQ SCH ×4 (07:30→20:17)
[2017-07-01] MEDS: SACCHAROMYCES BOULARDII 250 MG PO SCH (09:00)
[2017-07-01] MEDS: DORZOLAMIDE/TIMOLOL (OPTH SOL) 10 ML DRPETTE OP SCH ×2 (09:00→17:12)
[2017-07-01] MEDS: POLYETHYLENE GLYCOL 3350 17 GM PACK PO SCH (09:00)
[2017-07-01] MEDS: FERROUS SULFATE 325 MG TAB PO SCH (09:39)
[2017-07-01] MEDS: LEVOFLOXACIN 500MG/D5W 100ML 100 ML IV SCH (09:39)
[2017-07-01] MEDS: CLOPIDOGREL BISULFATE 75 MG TAB PO SCH (09:39)
[2017-07-01] MEDS: FUROSEMIDE INJ 10 MG/ML 4 ML VIAL IV SCH (09:39)
[2017-07-01] MEDS: FAMOTIDINE 20 MG TAB PO SCH (09:39)
[2017-07-01] MEDS: GABAPENTIN 300 MG CAP PO SCH (09:39)
[2017-07-01] MEDS: FENOFIBRATE 48 MG TAB PO SCH (09:39)
[2017-07-01 10:49] LABS: BASOPHILS # (AUTO) 0.1 (0.0-0.1); BASOPHILS % 0.7 % (0.0-1.0); EOSINOPHILS # (AUTO) 0.2 (0.0-0.4); EOSINOPHILS % 1.1 % (0.0-6.0); HEMATOCRIT 33.1 % (38.2-49.6); LYMPHOCYTES # (AUTO) 1.8 (1.0-3.2); LYMPHOCYTES % 13.3 % (18.0-39.1); MEAN CORPUSCULAR HEMOGLOBIN 29.1 pg (28-32); MEAN CORPUSCULAR HGB CONC 30.2 g/dL (31-35); MEAN CORPUSCULAR VOLUME 96.2 fL (81-99); MONOCYTES # (AUTO) 0.6 (0.2-0.8); MONOCYTES % 4.4 % (4.4-11.3); NEUTROPHILS % 75.6 % (38.7-80.0); PLATELET COUNT 385 x10e3/uL (140-360); RED BLOOD COUNT 3.44 x10e6/uL (4.3-5.7); RED CELL DISTRIBUTION WIDTH 16.4 % (11.7-14.4)
[2017-07-01] MEDS: CITRIC ACID/SODIUM CITRATE 30 ML UDC GT SCH ×3 (12:10→20:37)
[2017-07-01] MEDS ORDERED: VANCOMYCIN 1GM/NS 250 ML 250 ML IV SCH (13:00)
[2017-07-01] MEDS: CLONIDINE HCL 0.1 MG TAB GT SCH ×2 (14:13→20:37)
[2017-07-01] MEDS: CARVEDILOL 12.5 MG TAB PO SCH (18:30)
[2017-07-01] MEDS ORDERED: ALBUTEROL/IPRATROPIUM 3 ML NEB NEB SCH (19:00)
--- NOTE | 2017-07-01 19:19 | Progress Note ---
DATE: July 01, 2017 CARDIOLOGY PROGRESS NOTE SUBJECTIVE: The patient is awake. Not very responsive but appears to deny chest pain, having a fair amount of phlegm. OBJECTIVE VITAL SIGNS: Temperature 97.5 degrees, pulse 91, respiratory rate 16, blood pressure 192/92, oxygen saturation 98% on 50% FIO2. GENERAL: An elderly man in no acute distress. He appears older than his stated age, chronically ill appearing. LUNGS: Clear to auscultation bilaterally. No wheezes or crackles. CARDIOVASCULAR: Normal rate, regular rhythm. No murmur. Normal S1, S2. ABDOMEN: Soft, nontender. PEG tube is in place. EXTREMITIES: Trace edema with multiple ulcers. CARDIAC MEDICATIONS: 1. Clonidine 0.1 mg tid 2. Fenofibrate 48 mg p.o. daily. 3. Plavix 75 mg p.o. daily. 4. Simvastatin 10 mg p.o. nightly. LABORATORIES: WBC 13.2, hemoglobin 10, hematocrit 31.1, platelets 385,000, sodium 152, potassium 3.9, chloride 125, CO2 of 19, BUN 40, creatinine 1.33. TELEMETRY: Normal sinus rhythm. IMPRESSION: 1. Acute hypoxic respiratory failure. 2. Healthcare-associated pneumonia 3. Hypernatremia. 4. Acute cholecystitis. 5. Sustained ventricular tachycardia during prior admission./ 6. Diabetes mellitus. 7. Hypertension. 8. Hyperlipidemia. 9. Dementia. RECOMMENDATIONS: Continue current cardiac medications. Resume amiodarone and beta blockade. Continue anticoagulation given presence of right upper extremity thrombus. Will add aspirin. Thank you for this consult. We will continue to follow. Job#: [id number] GH MTDD
[2017-07-01] MEDS: SIMVASTATIN 20 MG TAB PO SCH (20:37)
[2017-07-02] VITALS (8 sets, daily range): BP systolic 101–146; BP diastolic 58–81
[2017-07-02] MEDS: MEROPENEM 1 GM VIAL IV SCH ×2 (01:37→12:49)
[2017-07-02] MEDS: ONDANSETRON HCL 4 MG ORAL DISINTEGRATING TAB PEG SCH ×4 (01:37→19:09)
[2017-07-02] MEDS: ACETAMINOPHEN 325 MG/10 ML UDC PEG SCH ×6 (01:37→21:23)
[2017-07-02] MEDS: ENOXAPARIN INJ 80 MG/0.8 ML SYR SC SCH ×2 (01:37→15:06)
[2017-07-02 06:29] LABS: ALANINE AMINOTRANSFERASE 24 IU/L (0-55); ALBUMIN 1.3 g/dL (3.5-5.0); ALBUMIN/GLOBULIN RATIO 0.3 (0.8-2.0); ALKALINE PHOSPHATASE 215 IU/L (40-150); ANION GAP 11.7 mmol/L (8-16); BLOOD UREA NITROGEN 37 mg/dL (7-26); BUN/CREATININE RATIO 32 (6-25); CALCIUM 7.4 mg/dL (8.4-10.2); CARBON DIOXIDE 21 mmol/L (22-29); CHLORIDE 123 mmol/L (98-107); CREATININE, SERUM 1.17 mg/dL (0.72-1.25); EST GLOMERULAR FILTRATION RATE > 60 ML/MIN (60-); GLUCOSE 118 mg/dL (74-118); POTASSIUM 3.7 mmol/L (3.5-5.1); SODIUM 152 mmol/L (136-145)
[2017-07-02] MEDS: INSULIN REGULAR, HUMAN 100 UNIT/1 ML 3ML VIAL SQ SCH ×4 (07:30→21:10)
[2017-07-02] MEDS: DORZOLAMIDE/TIMOLOL (OPTH SOL) 10 ML DRPETTE OP SCH ×2 (09:00→17:00)
[2017-07-02] MEDS: SACCHAROMYCES BOULARDII 250 MG PO SCH (09:00)
[2017-07-02] MEDS: CLONIDINE HCL 0.1 MG TAB GT SCH ×3 (09:25→21:00)
[2017-07-02] MEDS: CARVEDILOL 12.5 MG TAB PO SCH ×2 (09:25→17:41)
[2017-07-02] MEDS: FAMOTIDINE 20 MG TAB PO SCH (09:25)
[2017-07-02] MEDS: LEVOFLOXACIN 500MG/D5W 100ML 100 ML IV SCH (09:25)
[2017-07-02] MEDS: POLYETHYLENE GLYCOL 3350 17 GM PACK PO SCH (09:25)
[2017-07-02] MEDS: AMIODARONE HCL 200 MG TAB PO SCH ×2 (09:25→17:40)
[2017-07-02] MEDS: GABAPENTIN 300 MG CAP PO SCH (09:25)
[2017-07-02] MEDS: FERROUS SULFATE 325 MG TAB PO SCH (09:25)
[2017-07-02] MEDS: ASPIRIN 81 MG ENTERIC COATED PO SCH (09:25)
[2017-07-02] MEDS: CLOPIDOGREL BISULFATE 75 MG TAB PO SCH (09:25)
[2017-07-02] MEDS: CITRIC ACID/SODIUM CITRATE 30 ML UDC GT SCH ×3 (09:25→21:23)
[2017-07-02] MEDS: FENOFIBRATE 48 MG TAB PO SCH (09:25)
[2017-07-02] MEDS ORDERED: VANCOMYCIN 1GM/NS 250 ML 250 ML IV SCH ×2 (14:00)
--- NOTE | 2017-07-02 14:44 | Progress Note ---
DATE: July 02, 2017 CARDIOLOGY PROGRESS NOTE SUBJECTIVE: The patient is awake but does not respond. OBJECTIVE VITAL SIGNS: Temperature 98.9 degrees, pulse 74, respiratory rate 16, blood pressure 146/58, oxygen saturation 100% on 15 liters Venturi mask. GENERAL: Elderly man, chronically ill-appearing. Appearing older than his stated age. No acute distress. LUNGS: Clear to auscultation bilaterally. No wheezes or crackles. CARDIOVASCULAR: Normal rate, regular rhythm. No murmur. Normal S1 and S2. ABDOMEN: Soft, nontender. PEG tube is in place. EXTREMITIES: Trace edema with multiple pressure ulcers. CARDIAC MEDICATIONS 1. Aspirin 81 mg p.o. daily. 2. Carvedilol 25 mg p.o. b.i.d. 3. Amiodarone 200 mg p.o. b.i.d. 4. Fenofibrate 20 mg p.o. daily. 5. Simvastatin 10 mg p.o. nightly. 6. Enoxaparin 80 mg subcutaneous q.12 h. LABS: Sodium 152, potassium 3.7, chloride 123, CO2 21, BUN 37, creatinine 1.17. AST 41, alk phos 215, total protein 5.3, albumin 1.3. TELEMETRY: Normal sinus rhythm. IMPRESSION 1. Acute hypoxic respiratory failure. 2. Healthcare-associated pneumonia. 3. Hypernatremia. 4. Acute cholecystitis. 5. Sustained ventricular tachycardia during prior admission. 6. Diabetes mellitus. 7. Hypertension. 8. Hyperlipidemia. 9. Dementia. RECOMMENDATIONS: Continue current cardiac medications. Continue monitoring patient on telemetry. Antibiotics per primary service. Thank you for this consult. We will continue to follow. Job#: [id number] EV
[2017-07-02] MEDS ORDERED: DEXTROSE 5% 1,000 ML IV ONE (17:30)
[2017-07-02] MEDS: FLUCONAZOLE 100 MG/NS 50 ML 50 ML IV SCH (17:40)
--- NOTE | 2017-07-02 17:47 | Consultation ---
DATE OF CONSULTATION: REASON FOR CONSULTATION: Sepsis. HISTORY OF PRESENT ILLNESS: This patient is known to me from before. He is very ill. He is a 71-year-old gentleman who was recently in the hospital. I had a long discussion with the family at that time about hospice care. He does have history of diabetes, hypertension, hyperlipidemia, dementia, chronic kidney disease, recurrent aspiration, sepsis, malnutrition, possible fungemia. The patient is at high risk for recurrent sepsis. He was discharged here. A month earlier he had a fall with right femur fracture. He was here. He got pneumonia and then he got fungemia with some improvement, but discussed with the family about hospice. The declined at that time. Now they were worried. He is just too ill. He is probably going to come back to the hospital . He is coming now with worsening mental status. Patient is being admitted. Infectious disease was consulted again. There is no family for me to discuss with at the present time. Patient is alert but very weak. Does not provide meaningful information. He does have history of ventricular tachycardia, diabetes mellitus, hypertension, hyperlipidemia, aortic valve stenosis, dysphagia, hip fracture, dementia and chronic kidney disease on hemodialysis. ALLERGIES: NKA. SOCIAL HISTORY: There is no smoking, drug abuse or alcohol use. Patient apparently came in at this time with confusion, worsening mental status. He was found to have cholecystitis and underwent cholecystostomy. His creatinine was 1.58 and now it is 4.1. Infectious disease was consulted. MEDICATION: He received vancomycin, meropenem, levofloxacin. His urine showed. Angelica parapsilosis. PHYSICAL EXAMINATION: GENERAL: He is very weak. Does not seem to be in acute distress. VITALS: Stable and currently afebrile. HEENT: Not icteric. CHEST: Few rhonchi bilaterally. COR: S1 and S2, no murmur. ABDOMEN: Soft. He does have cholecystostomy. IMPRESSION: 1. Sepsis. 2. Cholecystitis. 3. Recurrent aspiration. 4. Funguria, probably fungemia. RECOMMENDATIONS: Agree with meropenem. Will adjust for his kidney function 500 mg q.24 hours. Will add Diflucan. I think the patient is a hospice candidate. Will discuss with the family. Again, will follow. Job#: [id number] GH
[2017-07-02] MEDS: SIMVASTATIN 20 MG TAB PO SCH (21:23)
[2017-07-03] VITALS (7 sets, daily range): BP systolic 125–146; BP diastolic 61–66
[2017-07-03] MEDS: MEROPENEM 1 GM VIAL IV SCH ×2 (01:54→14:30)
[2017-07-03] MEDS: ONDANSETRON HCL 4 MG ORAL DISINTEGRATING TAB PEG SCH ×4 (01:54→18:00)
[2017-07-03] MEDS: ENOXAPARIN INJ 80 MG/0.8 ML SYR SC SCH ×2 (01:55→14:30)
[2017-07-03] MEDS: ACETAMINOPHEN 325 MG/10 ML UDC PEG SCH ×5 (01:55→18:00)
[2017-07-03] MEDS: INSULIN REGULAR, HUMAN 100 UNIT/1 ML 3ML VIAL SQ SCH ×3 (07:30→16:30)
[2017-07-03] MEDS: FERROUS SULFATE 325 MG TAB PO SCH (09:00)
[2017-07-03] MEDS: CITRIC ACID/SODIUM CITRATE 30 ML UDC GT SCH ×2 (09:00→15:00)
[2017-07-03] MEDS: ASPIRIN 81 MG ENTERIC COATED PO SCH (09:00)
[2017-07-03] MEDS: POLYETHYLENE GLYCOL 3350 17 GM PACK PO SCH (09:00)
[2017-07-03] MEDS: AMIODARONE HCL 200 MG TAB PO SCH ×2 (09:00→18:00)
[2017-07-03] MEDS: FAMOTIDINE 20 MG TAB PO SCH (09:00)
[2017-07-03] MEDS: DORZOLAMIDE/TIMOLOL (OPTH SOL) 10 ML DRPETTE OP SCH ×2 (09:00→18:00)
[2017-07-03] MEDS: SACCHAROMYCES BOULARDII 250 MG PO SCH (09:00)
[2017-07-03] MEDS: CLONIDINE HCL 0.1 MG TAB GT SCH ×2 (09:00→15:00)
[2017-07-03] MEDS: CARVEDILOL 12.5 MG TAB PO SCH ×2 (09:00→18:00)
[2017-07-03] MEDS: CLOPIDOGREL BISULFATE 75 MG TAB PO SCH (09:00)
[2017-07-03] MEDS: GABAPENTIN 300 MG CAP PO SCH (09:00)
[2017-07-03] MEDS: FENOFIBRATE 48 MG TAB PO SCH (09:00)
--- NOTE | 2017-07-03 12:51 | Diagnostic Imaging Report ---
PROCEDURE:ULTRASOUND GUIDANCE FOR PROCEDURE COMPARISON:None. INDICATIONS: Cholecystostomy PROCEDURE: See below. CONCLUSION: Please see the dictation of the cholecystostomy catheter placement for full clinical details. Dictated by: Alec More M.D. on 07/03/2017 at 13:00 Electronically approved by: Alec More M.D. on 07/03/2017 at 13:00
--- NOTE | 2017-07-03 13:02 | Diagnostic Imaging Report ---
PROCEDURE:PERC CHOLECYSTOSTOMY W TUBE PLACEMENT INC IMAGING COMPARISON:CT abdomen and pelvis 06/27/2017. INDICATIONS:Cholescystostomy Placement FINDINGS:Focused sonographic evaluation of the gallbladder was performed. The gallbladder was distended. A safe approach was determined. The procedure was performed at the bedside in the intensive care unit. The right upper quadrant was prepped and draped in the usual sterile fashion. 1% lidocaine was infused into the subcutaneous tissues for local anesthesia. Utilizing direct sonographic guidance, an 18 gauge needle was advanced into the gallbladder. A 0.035 inch wire was coiled within the gallbladder lumen. A single dilation was performed over the wire. A 12 Georgian all-purpose drainage catheter was advanced over the wire. The wire was removed. The catheter was coiled within the gallbladder. The catheter was locked. 300 cc of purulent bile was aspirated. The catheter was secured to the skin with 3-0 Ethilon suture. A sterile dressing was applied. There were no immediate complications. The patient tolerated the procedure well. The patient remained in the intensive care unit in stable condition. CONCLUSION:Successful ultrasound-guided cholecystostomy catheter placement. Dictated by: Alec More M.D. on 07/03/2017 at 13:10 Electronically approved by: Alec More M.D. on 07/03/2017 at 13:10
--- NOTE | 2017-07-03 17:58 | Progress Note ---
DATE: July 03, 2017 CARDIOLOGY PROGRESS NOTE SUBJECTIVE: The patient is awake; however, he does not interact. OBJECTIVE VITAL SIGNS: Temperature 99.5 degrees, pulse 77, respiratory rate 18, blood pressure 129/62, oxygen saturation 100% on 15 liters ventilatory mask. GENERAL: Elderly man, chronically ill-appearing. Appearing older than his stated age. No acute distress. LUNGS: Clear to auscultation bilaterally. No wheezes or crackles. CARDIOVASCULAR: Normal rate, regular rhythm. No murmur. Normal S1 and S2. ABDOMEN: Soft, nontender. PEG tube is in place. EXTREMITIES: Trace edema with multiple pressure ulcers. CARDIAC MEDICATIONS 1. Aspirin 81 mg p.o. daily. 2. Carvedilol 25 mg p.o. b.i.d. 3. Amiodarone 200 mg p.o. b.i.d. 4. Fenofibrate 48 mg p.o. daily. 5. Plavix 75 mg p.o. daily. 6. Simvastatin 10 mg p.o. nightly. 7. Enoxaparin 80 mg subcutaneous q.12 h. LABS: None today. TELEMETRY: Normal sinus rhythm. IMPRESSION 1. Acute hypoxic respiratory failure. 2. Healthcare-associated pneumonia. 3. Hypernatremia. 4. Acute cholecystitis. 5. Sustained ventricular tachycardia during prior admission. 6. Diabetes mellitus. 7. Hypertension. 8. Hyperlipidemia. 9. Dementia. RECOMMENDATIONS: Continue current cardiac medications. Continue monitoring the patient on telemetry. Antibiotics per infectious disease. Thank you for this consult. We will continue to follow. Job#: [id number]
[2017-07-03] MEDS: FLUCONAZOLE 100 MG/NS 50 ML 50 ML IV SCH (18:00)
[2017-07-06] MEDS ORDERED: CLONIDINE HCL0.1 MG PO (14:09)
[2017-07-06] MEDS ORDERED: CARVEDILOL25 MG PEG (14:09)
[2017-07-06] MEDS ORDERED: AMIODARONE HCL200 MG PEG (14:09)
[2017-07-06] MEDS ORDERED: CARVEDILOL12.5 MG PO (14:31)
== END 2017-07-03 19:40 | DRG 853 ==
LOC: ER 10:25 → ERHOLD 12:47 → EDBEDREQ 06-28 21:36 → IMCU 06-29 16:09
PROC: 0F9430Z Drainage of Gallbladder with Drainage Device, Percutaneous Approach (ICD-10-PCS; principal; 2017-06-30)
DX: A41.9 Sepsis, unspecified organism (principal); J18.9 Pneumonia, unspecified organism; J96.01 Acute respiratory failure with hypoxia; N17.9 Acute kidney failure, unspecified; E87.0 Hyperosmolality and hypernatremia; J90 Pleural effusion, not elsewhere classified; N18.6 End stage renal disease; L89.623 Pressure ulcer of left heel, stage 3; K81.0 Acute cholecystitis; N39.0 Urinary tract infection, site not specified; I82.611 Acute embolism and thrombosis of superficial veins of right upper extremity; I12.0 Hypertensive chronic kidney disease with stage 5 chronic kidney disease or end stage renal disease; T82.868A Thrombosis due to vascular prosthetic devices, implants and grafts, initial encounter; F03.90 Unspecified dementia, unspecified severity, without behavioral disturbance, psychotic disturbance, mood disturbance, and anxiety; E11.22 Type 2 diabetes mellitus with diabetic chronic kidney disease; Z72.0 Tobacco use; E80.6 Other disorders of bilirubin metabolism; E11.51 Type 2 diabetes mellitus with diabetic peripheral angiopathy without gangrene; Z99.2 Dependence on renal dialysis; Z74.01 Bed confinement status; R65.20 Severe sepsis without septic shock; R13.10 Dysphagia, unspecified; Z93.1 Gastrostomy status; M10.9 Gout, unspecified; Z86.73 Personal history of transient ischemic attack (TIA), and cerebral infarction without residual deficits; L89.510 Pressure ulcer of right ankle, unstageable; L89.610 Pressure ulcer of right heel, unstageable; L89.890 Pressure ulcer of other site, unstageable; L89.159 Pressure ulcer of sacral region, unspecified stage
CPT/HCPCS: 31720; 36415; 36600; 47490; 71010; 74177; 74470; 76942; 80048; 80053; 80061; 80202; 81001; 82550; 82553; 82805; 82948; 83036; 83605; 83735; 84100; 84295; 84443; 84484; 85025; 85610; 85730; 87040; 87070; 87086; 87205; 87493; 93005; 93971; 94660; 96365; 96367; 96372; 97139; 99285; J1450; J1650; J1940; J1956; J2185; J2543; J3370; J7030; J7070; J7799; Q9967